=== PATIENT | female | born 1945 | race Caucasian/White ===

== ENCOUNTER 2019-03-19 13:35 | Outpatient (CLI) | payer MEDICARE, SELFPAY ==
[2019-03-19 14:26] LABS: Hematocrit 41.4 % (37.0-47.0); Hemoglobin 14.2 g/dL (12.0-15.0); Mean Corpuscular HGB Conc 34.3 g/dl (32-36); Mean Corpuscular Hemoglobin 31.3 pg (26-34); Mean Corpuscular Volume 91.4 fl (80-100); Mean Platelet Volume 9.7 fl (7.4-10.4); Platelet Count Result 288 k/mm3 (150-375); Red Blood Count 4.53 M/mm3 (4.2-5.4); Red Cell Distribution Width 12.8 % (11.5-14.5); White Blood Count 5.3 K/mm3 (4.5-10.0)
[2019-03-19 14:39] LABS: Alanine Aminotransferase 12 U/L (4-35); Albumin Level 4.2 g/dL (3.5-5.1); Alkaline Phosphatase 62 U/L (38-126); Aspartate Amino Transferase 19 U/L (14-36); Bilirubin,Total 0.7 mg/dL (0.2-1.3); Blood Urea Nitrogen 11 mg/dL (7-17); Calcium 9.4 mg/dL (8.4-10.2); Carbon Dioxide 27 mmol/L (22-30); Chloride 93 mmol/L (98-107); Cholesterol 246 mg/dL (0-200); Estimated Glomerular Filt Rate > 60; Glucose 96 mg/dL (65-105); HDL Direct 37 mg/dL; Magnesium 1.7 mg/dL (1.6-2.3); Potassium 3.2 mmol/L (3.4-5.0); Sodium 129 mmol/L (137-145); Triglycerides 147 mg/dL (<150)
[2019-03-19 14:49] LABS: LDL Cholesterol Direct 176 mg/dL
[2019-03-19 15:52] LABS: Folic Acid > 20.0 ng/mL (2.76->20)
== END 2019-03-19 13:36 | disposition home or self-care (01) ==
PROVIDERS: PCP Internal Medicine; Visit Provider Internal Medicine
DX: R53.83 Other fatigue (principal); I10 Essential (primary) hypertension; E78.00 Pure hypercholesterolemia, unspecified
CPT/HCPCS: 36415; 80053; 80061; 82607; 82746; 83735; 84443; 85027

== ENCOUNTER 2019-04-16 15:05 | Outpatient (CLI) | payer MEDICARE, SELFPAY ==
[2019-04-16 15:49] LABS: Albumin Level 4.3 g/dL (3.5-5.1); Blood Urea Nitrogen 11 mg/dL (7-17); Calcium 9.3 mg/dL (8.4-10.2); Carbon Dioxide 26 mmol/L (22-30); Chloride 93 mmol/L (98-107); Estimated Glomerular Filt Rate > 60; Glucose 100 mg/dL (65-105); Phosphorus 3.9 mg/dL (2.5-4.5); Potassium 3.3 mmol/L (3.4-5.0); Sodium 134 mmol/L (137-145)
== END 2019-04-16 15:06 | disposition home or self-care (01) ==
LOC: ANHLAB 15:09
PROVIDERS: PCP Internal Medicine; Visit Provider Internal Medicine Nephrology
DX: E87.1 Hypo-osmolality and hyponatremia (principal)
CPT/HCPCS: 36415; 80069

== ENCOUNTER 2020-04-17 15:11 | Outpatient (CLI) | payer MEDICARE, SELFPAY ==
[2020-04-17 15:43] LABS: Basophils Percent Auto 0.7 % (0.2-1.2); Eosinophils Absolute Auto 0.1 K/mm3 (0-0.3); Eosinophils Percent Auto 1.2 % (0-4.4); Hematocrit 39.6 % (37.0-47.0); Hemoglobin 13.9 g/dL (12.0-15.0); Immature Granulocyte Absolute 0.04 K/mm3 (0.00-0.031); Immature Granulocyte Percent A 0.7 % (0-0.5); Lymphocytes Absolute Auto 1.34 K/mm3 (0.9-3.2); Lymphocytes Percent Auto 22.3 % (18.3-44.2); Mean Corpuscular HGB Conc 35.1 g/dl (32-36); Mean Platelet Volume 9.2 fl (7.4-10.4); Monocytes Absolute Auto 0.8 K/mm3 (0.1-0.6); Monocytes Percent Auto 12.6 % (2.6-8.5); Neutrophils Absolute Auto 3.8 K/mm3 (1.3-6.7); Neutrophils Percent Auto 62.5 % (45.5-73.1); Platelet Count Result 290 k/mm3 (150-375); Red Blood Count 4.35 M/mm3 (4.2-5.4); Red Cell Distribution Width 12.9 % (11.5-14.5)
[2020-04-17 15:54] LABS: Cholesterol 226 mg/dL (0-200); HDL Direct 40 mg/dL; Triglycerides 125 mg/dL (<150)
[2020-04-17 16:05] LABS: LDL Cholesterol Direct 151 mg/dL
[2020-04-17 17:17] LABS: Folic Acid > 20.0 ng/mL (2.76->20)
[2020-04-17 17:20] LABS: Albumin Level 4.1 g/dL (3.5-5.1); Anion Gap 8 mmol/L (8-16); Blood Urea Nitrogen 10 mg/dL (7-17); Calcium 9.3 mg/dL (8.4-10.2); Carbon Dioxide 27 mmol/L (22-30); Chloride 97 mmol/L (98-107); Estimated Glomerular Filt Rate > 60; Glucose 97 mg/dL (65-105); Phosphorus 3.5 mg/dL (2.5-4.5); Potassium 3.3 mmol/L (3.4-5.0); Sodium 132 mmol/L (137-145)
== END 2020-04-17 15:12 | disposition home or self-care (01) ==
LOC: ANHLAB 15:13
PROVIDERS: PCP Internal Medicine; Visit Provider Internal Medicine Nephrology
DX: E78.5 Hyperlipidemia, unspecified (principal); R53.83 Other fatigue; E87.1 Hypo-osmolality and hyponatremia
CPT/HCPCS: 36415; 80061; 80069; 82607; 82746; 84443; 85025

== ENCOUNTER 2020-05-12 16:28 | Outpatient (CLI) | payer MEDICARE, SELFPAY ==
[2020-05-12 17:02] LABS: Add Urine Microscopic? YES; Appearance Urine Cloudy (Clear); Bacteria Urine Trace /hpf; Bilirubin Urine Negative (Negative); Blood Urine Negative (Negative); Color Urine Yellow (Yellow); Glucose Urine UA Negative (Negative); Ketones Urine Negative (Negative); Leukocyte Esterase Ur Negative LEU/UL (NEGATIVE); Nitrate Urine Negative (Negative); Protein Urine 1+ mg/dL (Negative); RBC Urine 0-2 /hpf (0-2); Specific Grav Ur 1.015 (1.001-1.035); Squamous Epithelial Cell Urine Few /hpf (Few); Urobilinogen Urine Negative mg/dL (<2.0); WBC Urine 0-3 /hpf (0-3)
== END 2020-05-12 16:29 | disposition home or self-care (01) ==
PROVIDERS: PCP Internal Medicine; Visit Provider Physician Assistant
DX: R30.0 Dysuria (principal)
CPT/HCPCS: 81001; 87086; 87088

== ENCOUNTER → 2020-05-14 06:57 | Outpatient (CLI) | payer MEDICARE, SELFPAY ==
[2020-05-15 17:45] LABS: SARS-CoV-2 RNA PCR Negative
== END ==
PROVIDERS: PCP Internal Medicine; Visit Provider Physician Assistant
DX: U07.1 COVID-19 (principal)
CPT/HCPCS: C9803; U0003; U0005

== ENCOUNTER 2020-08-27 14:39 | Outpatient (CLI) | payer MEDICARE, SELFPAY ==
[2020-08-27 15:11] LABS: Albumin Level 4.3 g/dL (3.5-5.1); Anion Gap 7 mmol/L (8-16); Blood Urea Nitrogen 14 mg/dL (7-17); Calcium 9.1 mg/dL (8.4-10.2); Carbon Dioxide 27 mmol/L (22-30); Chloride 98 mmol/L (98-107); Estimated Glomerular Filt Rate > 60; Glucose 119 mg/dL (65-105); Phosphorus 3.8 mg/dL (2.5-4.5); Potassium 3.7 mmol/L (3.4-5.0); Sodium 132 mmol/L (137-145)
== END 2020-08-27 14:40 | disposition home or self-care (01) ==
LOC: ANHLAB 14:41
PROVIDERS: PCP Internal Medicine; Visit Provider Internal Medicine Nephrology
DX: E87.1 Hypo-osmolality and hyponatremia (principal); I10 Essential (primary) hypertension
CPT/HCPCS: 36415; 80069

== ENCOUNTER 2021-04-12 14:40 | Outpatient (CLI) | payer MEDICARE, SELFPAY ==
[2021-04-12 15:17] LABS: Albumin Level 4.5 g/dL (3.5-5.1); Anion Gap 10 mmol/L (8-16); Blood Urea Nitrogen 10 mg/dL (7-17); Carbon Dioxide 24 mmol/L (22-30); Chloride 97 mmol/L (98-107); Estimated Glomerular Filt Rate > 60; Glucose 119 mg/dL (65-110); Phosphorus 4.4 mg/dL (2.5-4.5); Potassium 3.5 mmol/L (3.4-5.0); Sodium 131 mmol/L (137-145)
== END 2021-04-12 14:41 | disposition home or self-care (01) ==
PROVIDERS: PCP Internal Medicine; Visit Provider Internal Medicine Nephrology
DX: E87.1 Hypo-osmolality and hyponatremia (principal)
CPT/HCPCS: 36415; 80069

== ENCOUNTER 2021-04-29 12:42 | Outpatient (CLI) | payer MEDICARE, SELFPAY ==
[2021-04-29 13:21] LABS: Basophils Absolute Auto 0.1 K/mm3 (0.0-0.1); Basophils Percent Auto 0.9 % (0.2-1.2); Eosinophils Absolute Auto 0.1 K/mm3 (0-0.3); Eosinophils Percent Auto 1.2 % (0-4.4); Hematocrit 40.1 % (37.0-47.0); Hemoglobin 13.8 g/dL (12.0-15.0); Immature Granulocyte Absolute 0.04 K/mm3 (0.00-0.031); Immature Granulocyte Percent A 0.6 % (0-0.5); Lymphocytes Absolute Auto 1.79 K/mm3 (0.9-3.2); Lymphocytes Percent Auto 27.4 % (18.3-44.2); Mean Corpuscular HGB Conc 34.4 g/dl (32-36); Mean Corpuscular Hemoglobin 32.5 pg (26-34); Mean Corpuscular Volume 94.4 fl (80-100); Mean Platelet Volume 9.4 fl (7.4-10.4); Monocytes Absolute Auto 0.8 K/mm3 (0.1-0.6); Monocytes Percent Auto 12.8 % (2.6-8.5); Neutrophils Absolute Auto 3.7 K/mm3 (1.3-6.7); Neutrophils Percent Auto 57.1 % (45.5-73.1); Platelet Count Result 299 k/mm3 (150-375); Red Blood Count 4.25 M/mm3 (4.2-5.4); Red Cell Distribution Width 12.9 % (11.5-14.5); White Blood Count 6.5 K/mm3 (4.5-10.0)
[2021-04-29 13:27] LABS: Alanine Aminotransferase 14 U/L (4-35); Albumin Level 4.2 g/dL (3.5-5.1); Alkaline Phosphatase 60 U/L (38-126); Anion Gap 5 mmol/L (8-16); Aspartate Amino Transferase 27 U/L (14-36); Bilirubin,Total 0.8 mg/dL (0.2-1.3); Blood Urea Nitrogen 10 mg/dL (7-17); Calcium 9.4 mg/dL (8.4-10.2); Carbon Dioxide 30 mmol/L (22-30); Chloride 96 mmol/L (98-107); Cholesterol 249 mg/dL (0-200); Estimated Glomerular Filt Rate > 60; Glucose 101 mg/dL (65-110); HDL Direct 40 mg/dL; Potassium 3.4 mmol/L (3.4-5.0); Sodium 131 mmol/L (137-145); Triglycerides 165 mg/dL (<150)
[2021-04-29 13:38] LABS: LDL Cholesterol Direct 165 mg/dL
[2021-04-29 14:31] LABS: Folic Acid 16.2 ng/mL (2.76->20)
== END 2021-04-29 12:43 | disposition home or self-care (01) ==
PROVIDERS: PCP Internal Medicine; Referring Provider Internal Medicine Nephrology; Visit Provider Internal Medicine
DX: E78.00 Pure hypercholesterolemia, unspecified (principal); I10 Essential (primary) hypertension; R53.83 Other fatigue
CPT/HCPCS: 36415; 80053; 80061; 82607; 82746; 84443; 85025

== ENCOUNTER 2021-12-13 17:22 | Outpatient (CLI) | payer MEDICARE, SELFPAY ==
[2021-12-13 17:59] LABS: Albumin Level 4.3 g/dL (3.5-5.1); Anion Gap 13 mmol/L (8-16); Blood Urea Nitrogen 12 mg/dL (7-17); Calcium 8.9 mg/dL (8.4-10.2); Carbon Dioxide 28 mmol/L (22-30); Chloride 94 mmol/L (98-107); Estimated Glomerular Filt Rate > 60; Glucose 104 mg/dL (65-110); Phosphorus 3.5 mg/dL (2.5-4.5); Sodium 135 mmol/L (137-145)
[2021-12-13 18:00] LABS: Creatinine Urine 106.7 mg/dL; Total Protein Urine Random 7 mg/dL; Ur Ttl Prot Creatinine Ratio 0.07 mg/mg (0-0.20)
== END 2021-12-13 17:23 | disposition home or self-care (01) ==
PROVIDERS: PCP Internal Medicine; Referring Provider Internal Medicine; Visit Provider Internal Medicine Nephrology
DX: E87.1 Hypo-osmolality and hyponatremia (principal); I10 Essential (primary) hypertension
CPT/HCPCS: 36415; 80069; 82570; 84156

== ENCOUNTER 2022-02-11 01:50 | Inpatient (IN) | payer MEDICARE, SELFPAY ==
[2022-02-11] VITALS (42 sets, daily range): BP systolic 162–188; BP diastolic 77–93; PULSE 90–124; RESP 9–27; TEMP 36.6–36.9; O2SAT 92–100; BMI 28.3
--- NOTE | ~2022-02-11 | XR_ITS ---
EXAMINATION: XR chest 1V portable DATE: 02/11/2022 02:41 INDICATION: Chills. TECHNIQUE: A single frontal view of the chest was obtained. COMPARISON: Chest CT 02/11/2022 FINDINGS: The chest demonstrates clear lungs without pneumonia, pleural effusion, or pneumothorax. Th e heart size is normal. IMPRESSION: 1. No acute cardiopulmonary disease. Reviewed, dictated and finalized at location A. TENANCE MECHANIC
--- NOTE | ~2022-02-11 | CT_ITS ---
EXAMINATION:CT diagnostic chest wo con DATE: 02/11/2022 04:01 INDICATION: Chills. TECHNIQUE: Computed tomography (CT) of the chest was performed without intravenous contrast. Automate d exposure control and iterative reconstruction technique were employed. The dose-length product (DLP ) was 163.65 mGy-cm. COMPARISON: Chest single view 02/11/2022 FINDINGS: There is minimal atelectasis on the right. No pleural effusion. The heart size is normal. N o pericardial effusion. There is a small sliding hiatal hernia. There is gas in left anterior chest w all, consistent with recent surgery. There is fat stranding in left breast that may be hematoma and p ostoperative change. There is mild thoracic spondylosis. IMPRESSION: 1. Small sliding hiatal hernia. 2. Postoperative changes in left breast. Reviewed, dictated and finalized at location A. RATOR REPAIRER
[2022-02-11] MEDS: LORazepam INJ (*CRX) 2 MG/ML VIAL 1 MG IV PUSH ×2 (02:00→20:23)
--- NOTE | 2022-02-11 02:03 | ECG_ITS ---
Measurements Intervals [place] Rate: 100 P: 40 AK: 199 QRS: 0 QRSD: 90 T: 21 QT: 369 QTc: 477 Interpretive Statements SINUS TACHYCARDIA POSSIBLE INFERIOR MYOCARDIAL INFARCTION , PROBABLY OLD [30 ms Q WAVE IN II/aVF] ABNORMAL RHYTHM ECG NO PREVIOUS ECG AVAILABLE FOR COMPARISON Electronically Signed On 02-11-2022 19:57:09 PACKAGE SEALER MACHINE by Marty Salazar M.D.
[2022-02-11] MEDS: diphenhydrAMINE HCl INJ 50 MG/ML VIAL 25 MG IV PUSH ×2 (02:25→20:23)
[2022-02-11 02:33] LABS: Basophils Percent Auto 0.5 % (0.2-1.2); Eosinophils Absolute Auto 0.2 K/mm3 (0-0.3); Eosinophils Percent Auto 3.9 % (0-4.4); Hematocrit 41.6 % (37.0-47.0); Hemoglobin 14.6 g/dL (12.0-15.0); Immature Granulocyte Absolute 0.07 K/mm3 (0.00-0.031); Immature Granulocyte Percent A 1.2 % (0-0.5); Lymphocytes Absolute Auto 1.22 K/mm3 (0.9-3.2); Lymphocytes Percent Auto 20.7 % (18.3-44.2); Mean Corpuscular HGB Conc 35.1 g/dl (32-36); Mean Corpuscular Hemoglobin 31.7 pg (26-34); Mean Corpuscular Volume 90.4 fl (80-100); Mean Platelet Volume 9.7 fl (7.4-10.4); Monocytes Percent Auto 16.5 % (2.6-8.5); Neutrophils Absolute Auto 3.4 K/mm3 (1.3-6.7); Neutrophils Percent Auto 57.2 % (45.5-73.1); Platelet Count Result 337 k/mm3 (150-375); Red Cell Distribution Width 12.2 % (11.5-14.5); White Blood Count 5.9 K/mm3 (4.5-10.0)
--- NOTE | 2022-02-11 02:40 | ED.ALLEREA ---
HPI - Allergic Reaction General Chief complaint: Allergic Reaction Stated complaint: ALLERGIC REACTION Time Seen by Provider: 02/11/22 02:02 Source: patient and EMS Mode of arrival: EMS Limitations: no limitations History of Present Illness HPI narrative: Patient is 76 years old white female, had a recent diagnosis of breast cancer December 2021, status post lumpectomy of left breast on February 07, 2022. Patient had vancomycin during this procedure, within 8 hours the patient started having diffuse redness of the skin at the torso and chest and thigh and upper extremities bilaterally. Patient called her surgeon who started her on Medrol Dosepak and Benadryl, the symptoms are not improving over the last 4 days. Few hours ago patient developed shortness of breath, shaking and restlessness, her gave her his albuterol treatment and got better few minutes later got worse, callED 911, and came to the ED by ambulance. Patient denies any fever,, nausea, vomiting, chest pain, or itching. Currently patient main complaint is her concern about the future of her breast cancer. Patient had history of a lot of allergy to a lot of stuff, have a denitrator. Related Data Home Medications Medication Instructions Recorded Confirmed estradiol 0.1 mg/24 hr semiweekly 1 patch transdermal 2XW 03/25/19 01/04/22 transdermal patch (Brenda) fexofenadine 180 mg tablet 180 mg PO DAILY 03/25/19 01/04/22 (Karly Allergy) lisinopril 20 mg tablet 20 mg PO BID 03/25/19 01/04/22 metoprolol tartrate 50 mg tablet 25 mg PO Q12H 03/25/19 01/04/22 progesterone micronized 100 mg 100 mg PO QAM 03/25/19 01/04/22 capsule triamterene 37.5 0.5 tablet PO BID 03/25/19 01/04/22 mg-hydrochlorothiazide 25 mg tablet famotidine 10 mg tablet 10 mg PO DAILY 10/01/19 01/04/22 clobetasol 0.05 % scalp solution 1 applic topical DAILY 04/24/20 01/04/22 fluticasone propionate 50 1 spray intranasal DAILY 04/24/20 01/04/22 mcg/actuation nasal spray,suspension potassium chloride 10 mEq 20 meq PO DAILY 04/24/20 01/04/22 tablet,extended release(part/cryst) (Klor-Con M) desoximetasone 0.25 % topical cream 1 applic topical DAILY PRN 10/30/20 01/04/22 triamcinolone acetonide 55 mcg 1 spray intranasal DAILY 05/03/21 01/04/22 nasal spray aerosol (Nasacort) Allergies Allergy/AdvReac Type Severity Reaction Status Date / Time clonidine Allergy Severe throat Verified 02/11/22 02:40 swelling hydrocodone Allergy Severe swelling Verified 02/11/22 02:40 ibuprofen Allergy Severe skin Verified 02/11/22 02:40 peeling Penicillins Allergy Severe rash, resp Verified 02/11/22 02:40 distress Sulfa (Sulfonamide Allergy Severe Anaphylaxis Verified 02/11/22 02:40 Antibiotics) trimethoprim Allergy Severe ANAPHYLACTIC Verified 02/11/22 02:40 REACTION latex Allergy Intermediate RASH Verified 02/11/22 02:40 procaine Allergy Intermediate DROWSINESS Verified 02/11/22 02:40 amlodipine Allergy Mild Unknown Verified 02/11/22 02:40 atenolol Allergy Mild hair loss Verified 02/11/22 02:40 bacitracin Allergy Mild uknown Verified 02/11/22 02:40 benzyl alcohol Allergy Mild unkown Verified 02/11/22 02:40 celecoxib Allergy Mild Unknown Verified 02/11/22 02:40 clindamycin Allergy Mild Rash Verified 02/11/22 02:40 estradiol Allergy Mild didn't work Verified 02/11/22 02:40 methylchloroisothiazolinone Allergy Mild unknown Verified 02/11/22 02:40 neomycin Allergy Mild RASH Verified 02/11/22 02:40 polyethylene glycol 400 Allergy Mild unknown Verified 02/11/22 02:40 [From Systane (propylene glycol)] propylene glycol Allergy Mild unknown Verified 02/11/22 02:40 quinapril [From Accupril] Allergy Mild Diarrhea Verified 02/11/22 02:40 verapamil Allergy Mild ringing in Verified 02/11/22 02:40 ears meloxicam Allergy Unknown elevated Verified 02/11/22 02:40 BP, swelling NSAIDS (Non-Steroidal Allergy Swelling Verified 02/11/22 02:40 Anti-Inflamma Progestins
[2022-02-11 03:10] LABS: Influenza A QL RT-PCR Negative (Negative); Influenza B QL RT-PCR Negative (Negative); RSV RNA, RT-PCR Negative (Negative); SARS-CoV-2 RNA PCR Negative
[2022-02-11 03:14] LABS: Lactic Acid Reflex 4.8 mmol/L (0.7-2.0)
[2022-02-11 03:15] LABS: Alanine Aminotransferase 24 U/L (6-35); Albumin Level 4.7 g/dL (3.5-5.1); Alkaline Phosphatase 65 U/L (38-126); Anion Gap 16 mmol/L (8-16); Aspartate Amino Transferase 29 U/L (14-36); Bilirubin,Total 0.4 mg/dL (0.2-1.3); Blood Urea Nitrogen 15 mg/dL (7-17); CRP < 0.5 mg/dL (<1.0); Calcium 9.7 mg/dL (8.4-10.2); Carbon Dioxide 22 mmol/L (22-30); Chloride 92 mmol/L (98-107); Estimated CRCL calculation 52 ml/min; Estimated Glomerular Filt Rate > 60; Glucose 126 mg/dL (65-110); Potassium 2.6 mmol/L (3.4-5.0); Sodium 130 mmol/L (137-145)
[2022-02-11 04:01] LABS: Add Urine Microscopic? NO; Appearance Urine Clear (Clear); Bilirubin Urine Negative (Negative); Blood Urine Negative (Negative); Color Urine Light Yellow (Yellow); Glucose Urine UA Negative (Negative); Ketones Urine Negative (Negative); Leukocyte Esterase Ur Negative LEU/UL (Negative); Nitrate Urine Negative (Negative); Protein Urine Negative (Negative); Urobilinogen Urine 0.2 mg/dL (<2.0)
[2022-02-11] MEDS: AZTREONAM 1 GM in DEXTROSE 5% IN WATER 50 ML 100 ML IVPB (04:35)
[2022-02-11] MEDS: SODIUM CHLORIDE 0.9% IV 1,000 ML 999 ML IV CONT (04:59)
[2022-02-11] MEDS: POTASSIUM CHLORIDE 20 MEQ PACKET (FOR LIQUID) 40 MEQ PO (05:00)
[2022-02-11 05:10] LABS: Magnesium 0.9 mg/dL (1.6-2.3)
[2022-02-11 05:31] LABS: Reflex Lactic Acid Yes or No Add Lactic
[2022-02-11] MEDS: POTASSIUM CHLORIDE INJ 40 MEQ in SODIUM CHLORIDE 0.9% IV 500 ML 130 MEQ IVPB (05:38)
[2022-02-11 06:28] LABS: Lactic Acid Reflex 2.5 mmol/L (0.7-2.0)
[2022-02-11] MEDS: MAGNESIUM SULF 2 GM/WATER 50ML 2 GM/50 ML BAG IVPB (07:18)
--- NOTE | 2022-02-11 12:22 | ADMGEN ---
This patient, Mikayla Fitzgerald, was admitted to [facility] Surg Room 317-01 at 1220. Patient/family oriented to hospital policies and general routines including ID bracelet, bed and alarms, visiting hours, pain management, procedures, bathroom and other care routines, personal items, smoking policy, room service/diet, and visiting hours. Information on how to activate the Rapid Response Team has been discussed. Patient/Family are encouraged to report perceived risks to care and to ask questions if they do not understand what they are told or what they should do.
[2022-02-11 13:24] LABS: Lactic Acid Reflex 2.1 mmol/L (0.7-2.0)
[2022-02-11 13:27] LABS: Anion Gap 7 mmol/L (8-16); Blood Urea Nitrogen 13 mg/dL (7-17); Calcium 8.5 mg/dL (8.4-10.2); Carbon Dioxide 23 mmol/L (22-30); Chloride 102 mmol/L (98-107); Estimated CRCL calculation 69 ml/min; Estimated Glomerular Filt Rate > 60; Glucose 125 mg/dL (65-110); Magnesium 2.1 mg/dL (1.6-2.3); Potassium 4.3 mmol/L (3.4-5.0); Sodium 132 mmol/L (137-145)
[2022-02-11 17:02] LABS: Alanine Aminotransferase 19 U/L (6-35); Albumin Level 3.8 g/dL (3.5-5.1); Alkaline Phosphatase 48 U/L (38-126); Anion Gap 9 mmol/L (8-16); Aspartate Amino Transferase 23 U/L (14-36); Bilirubin,Total 0.2 mg/dL (0.2-1.3); Blood Urea Nitrogen 13 mg/dL (7-17); Calcium 8.3 mg/dL (8.4-10.2); Carbon Dioxide 23 mmol/L (22-30); Chloride 97 mmol/L (98-107); Estimated CRCL calculation 48 ml/min; Estimated Glomerular Filt Rate > 60; Glucose 127 mg/dL (65-110); Magnesium 1.9 mg/dL (1.6-2.3); Potassium 3.4 mmol/L (3.4-5.0); Sodium 129 mmol/L (137-145)
--- NOTE | 2022-02-11 20:00 | PM.IMHP ---
H&P: HPI History of Present Illness Date/Time: 02/11/22 20:00 Chief Complaint: Suspected allergic reaction. 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 She had a left breast lumpectomy on MondayFebruary 07 at [place] and she reportedly received vancomycin during the procedure. Within several hours of the procedure she developed a diffuse, red rash throughout the body which seemed to be worse when she got home. She spoke with her surgeon who started her on Benadryl and a Medrol Dosepak with perhaps mild improvement. Last evening she developed sudden restlessness associated with shortness of breath and feelings as though her throat was swelling. She presented to the ER via EMS where she was given epinephrine subQ, Solu-Medrol, and diphenhydramine. The erythema improved somewhat thereafter but has started to come back. She was admitted in this setting. Since that time she has not really had any change in symptoms. The rash is perhaps mildly paretic but not significantly so. She denies syncope, near syncope, shortness of breath, chest pain, nausea, and vomiting. She has not taken any new medications since the surgery. Her symptoms are not similar to her discoid lupus or prior episode of bullous erythema multiform. Review of Systems Review of Systems: Twelve systems were reviewed and are negative except for as per HPI. [facility] Past Medical History Medical History (Updated 02/12/22 @ 00:08 by Honey Flowers PA-C) Bullous erythema multiforme Biopsy-proven to per Dr. Walker. Attributed to ibuprofen. Cancer of left breast Discoid lupus Hypertension Shingles (~08/2019) Surgical History Surgical History (Updated 02/12/22 @ 00:03 by Honey Flowers PA-C) History of dilation and curettage History of lumpectomy of left breast (02/07/22) Family History Family History Mother Hypertension Cerebrovascular accident Uterine cancer Father Patient's father is Hypertension Heart disease Social History Social History (Updated 02/12/22 @ 00:04 by NEFTALI Pickard Social History: Surrogate medical decision maker: Juvenal Fitzgerald, spouse. Code status: Full code. Smoking status: Never smoker Second hand tobacco smoke exposure: No Alcohol intake: never Substance use: never Lack of Transportation: No Lack of Food: Never True Current Housing: I Have Housing Concerned About Future Housing: Decline to Answer Difficulty Paying Gas/Electric Bills: Decline to Answer Difficulty Paying for Meds: Decline to Answer Currently Unemployed: Decline to Answer Education: Decline to Answer Difficulty w/ Childcare or Family Care: Decline to Answer Spiritual care concerns: No Meds Home Medications and Allergies Home Medications Medication Instructions Recorded Confirmed Type fexofenadine 180 mg tablet 180 mg PO DAILY 03/25/19 02/11/22 History (Karly Allergy) lisinopril 20 mg tablet 20 mg PO BID 03/25/19 02/11/22 History metoprolol tartrate 50 mg tablet 25 mg PO Q12H 03/25/19 02/11/22 History triamterene 37.5 0.5 tablet PO BID 03/25/19 02/11/22 History mg-hydrochlorothiazide 25 mg tablet famotidine 10 mg tablet 20 mg PO DAILY 10/01/19 02/11/22 History fluticasone propionate 50 1 spray intranasal DAILY 04/24/20 02/11/22 History mcg/actuation nasal spray,suspension potassium chloride 10 mEq 20 meq PO DAILY 04/24/20 02/11/22 History tablet,extended release(part/cryst) (Klor-Con M) desoximetasone 0.25 % topical cream 1 applic topical DAILY PRN dryness 10/30/20 02/11/22 History triamcinolone acetonide 55 mcg 1 spray intranasal
[2022-02-11] MEDS: METOPROLOL TARTRATE 25 MG TABLET PO (23:02)
[2022-02-11] MEDS: lisinopriL 20 MG TABLET PO (23:04)
[2022-02-11] MEDS: diphenhydrAMINE HCl CAP 25 MG CAPSULE PO (23:04)
[2022-02-12] MEDS: predniSONE 20 MG TABLET 40 MG PO (01:01)
[2022-02-12] MEDS: diphenhydrAMINE HCl CAP 25 MG CAPSULE PO ×4 (01:01→17:00)
[2022-02-12 06:00] VITALS: BP 133/77; PULSE 80; RESP 19; TEMP 35.8; O2SAT 97
[2022-02-12] MEDS: POTASSIUM CHLORIDE 10 MEQ TABLET.ER 20 MEQ PO (08:03)
[2022-02-12 08:04] VITALS: PULSE 84
[2022-02-12] MEDS: FLUTICASONE PROPIONATE 0.05% NA SPR 16 GM BTL (*BKC) 2 SPRAY NASAL (08:04)
[2022-02-12] MEDS: DOCUSATE SODIUM 100 MG CAPSULE PO ×2 (08:04→17:00)
[2022-02-12] MEDS: FAMOTIDINE 20 MG TABLET PO (08:04)
[2022-02-12] MEDS: CHOLECALCIFEROL 1,000 UNITS TABLET 5000 UNITS PO (08:04)
[2022-02-12] MEDS: LORATADINE 10 MG TABLET PO (08:04)
[2022-02-12] MEDS: ASCORBIC ACID 500 MG TABLET PO (08:04)
[2022-02-12] MEDS: lisinopriL 20 MG TABLET PO ×2 (08:04→17:00)
[2022-02-12] MEDS: METOPROLOL TARTRATE 25 MG TABLET PO ×2 (08:04→20:45)
[2022-02-12] MEDS: NAPHAZOLINE/PHENIRAM OP SOLN 15 ML BTL 2 DROP EACH EYE (08:06)
[2022-02-12 08:58] LABS: Alanine Aminotransferase 20 U/L (6-35); Albumin Level 3.8 g/dL (3.5-5.1); Alkaline Phosphatase 48 U/L (38-126); Anion Gap 6 mmol/L (8-16); Aspartate Amino Transferase 27 U/L (14-36); Bilirubin,Total 0.4 mg/dL (0.2-1.3); Blood Urea Nitrogen 12 mg/dL (7-17); Calcium 8.2 mg/dL (8.4-10.2); Carbon Dioxide 26 mmol/L (22-30); Chloride 97 mmol/L (98-107); Estimated CRCL calculation 53 ml/min; Estimated Glomerular Filt Rate > 60; Glucose 137 mg/dL (65-110); Potassium 3.7 mmol/L (3.4-5.0); Sodium 129 mmol/L (137-145)
[2022-02-12 14:00] VITALS: BP 143/77; PULSE 80; RESP 16; TEMP 36.6; O2SAT 98
--- NOTE | 2022-02-12 14:43 | PM.IMPN ---
Progress Note: A&P Assessment and Plan (1) Rash and nonspecific skin eruption: Code(s): R21 - Rash and other nonspecific skin eruption Status: Acute Assessment and Plan: Suspect she has a delayed drug rash, may very well have been due to vancomycin but she also received anaesthesia at that time as well. Rash not consistent with discoid lupus, bullous erythema multiform, exfoliative dermatitis, or Gregory Juan's but she does have a single mouth sore. Continue steroids, diphenhydramine, and loratadine. Patient will need a prescription for epinephrine pen on discharge. Monitor overnight. If rash continues to dissipate, plan home with steroids in the morning. (2) Allergic reaction: Code(s): T78.40XA - Allergy, unspecified, initial encounter Status: Acute Assessment and Plan: Suspected drug reaction to above. (3) Hyponatremia: Code(s): E87.1 - Hypo-osmolality and hyponatremia Status: Acute Assessment and Plan: Appears euvolemic. Diuretics currently on hold. Will check urine studies and serial Na levels. (4) Elevated lactic acid level: Code(s): R79.89 - Other specified abnormal findings of blood chemistry Status: Acute Assessment and Plan: Lactic acid was 4.8 on arrival. She was given a dose of aztreonam and levofloxacin in the emergency department however there are no findings to suggest active infection. Blood cultures pending though sepsis seems unlikely. Lactic acidosis could be seen in the setting of anaphylaxis however it is not clear if that was the case on presentation. Repeat Lactic acid levels trending down. (5) Hypertension: Code(s): I10 - Essential (primary) hypertension Status: Acute Assessment and Plan: Patient's blood pressure was reviewed on 02/12 Blood pressure was elevatd on admission but better this morning Will continue current medications. (6) Anxiety: Code(s): F41.9 - Anxiety disorder, unspecified Status: Acute Assessment and Plan: Noted to have anxiety. She had hallucinations potentially from the Ativan. Will stop Ativan. Follow. (7) Hypokalemia: Code(s): E87.6 - Hypokalemia Status: Acute Assessment and Plan: Potassium was replaced and normal now. Will continue to monitor. (8) Hypomagnesemia: Code(s): E83.42 - Hypomagnesemia Status: Acute Assessment and Plan: Magnesium was replaced and normal now. Will continue to monitor. 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 She slept okay. Rash is pruritic. She took Ativan last night and felt she was having hallucinations. Has a history of low sodium felt related to her drinking excessive water intake. She feels the rash is shipping weigher is spots. No bullous rash. No longer feels that her throat is tightening. She feels anxious. Exam Narrative: AF 96.5 133/77 84 19 97% ra Gen - NARD HEENT - small, shallow ulcer right buccal mucosa Chest - CTA bilaterally, nml RR CV - RRR S1/S2 Abd - Soft, NT/ND, Positive BS Ext - No pedal edema Psych - anxious Skin - diffuse macular rash involving the back/trunk/buttock/legs with sparing of the face; no bullae. No nodules Objective Data Vital Signs Vital Signs: Vital Signs - 24 hr 02/11/22 21:05 02/11/22 23:02 02/11/22 20:00 Temperature 97.8 F Pulse Rate 101 H 100 Respiratory Rate 20 Blood Pressure 168/92 H Pulse Oximetry 97 Oxygen Delivery Room Air 02/12/22 06:00 02/12/22 08:04 02/12/22 08:00 Temperature 96.5 F L Pulse Rate 80 84 Respiratory Rate 19 Blood Pressure 133/77 Pulse Oximetry 97 Oxygen Delivery Room Air Intake/Output
[2022-02-12 15:21] LABS: Sodium 128 mmol/L (137-145)
[2022-02-12] MEDS: methylPREDNISolone (MEDROL) DOSEPACK 4 MG TABLETS PO ×2 (17:00→20:45)
[2022-02-12 18:13] LABS: Sodium 133 mmol/L (137-145)
[2022-02-12 18:30] LABS: Sodium Urine Random 13 meq/L
[2022-02-12 20:45] VITALS: PULSE 81
[2022-02-12 22:00] VITALS: BP 145/70; PULSE 82; RESP 18; TEMP 36.7; O2SAT 97
--- NOTE | 2022-02-13 00:27 | PC.NURSE ---
Patient removed telemetry sticker and described excess itchiness. Upon further investigation, patient realized that one of the ingredients in the telemetry stickers is propylene glycol. Patient states she has an allergy to this ingredient. We removed the stickers and cleaned with alcohol wipes. No change in skin description or vital signs.
[2022-02-13 00:47] LABS: Sodium 134 mmol/L (137-145)
[2022-02-13] MEDS: diphenhydrAMINE HCl CAP 25 MG CAPSULE PO ×4 (00:55→18:03)
[2022-02-13] MEDS: methylPREDNISolone (MEDROL) DOSEPACK 4 MG TABLETS PO ×4 (05:50→20:44)
[2022-02-13 06:00] VITALS: BP 148/72; PULSE 77; RESP 18; TEMP 36.4; O2SAT 98
[2022-02-13 07:14] LABS: Alanine Aminotransferase 18 U/L (6-35); Albumin Level 3.4 g/dL (3.5-5.1); Alkaline Phosphatase 43 U/L (38-126); Anion Gap 6 mmol/L (8-16); Aspartate Amino Transferase 20 U/L (14-36); Bilirubin,Total 0.3 mg/dL (0.2-1.3); Blood Urea Nitrogen 17 mg/dL (7-17); Calcium 8.1 mg/dL (8.4-10.2); Carbon Dioxide 26 mmol/L (22-30); Chloride 98 mmol/L (98-107); Estimated CRCL calculation 60 ml/min; Estimated Glomerular Filt Rate > 60; Glucose 102 mg/dL (65-110); Potassium 3.6 mmol/L (3.4-5.0); Sodium 130 mmol/L (137-145)
[2022-02-13] MEDS: ASCORBIC ACID 500 MG TABLET PO (09:14)
[2022-02-13] MEDS: POTASSIUM CHLORIDE 10 MEQ TABLET.ER 20 MEQ PO (09:14)
[2022-02-13] MEDS: FAMOTIDINE 20 MG TABLET PO (09:14)
[2022-02-13] MEDS: lisinopriL 20 MG TABLET PO ×2 (09:14→18:03)
[2022-02-13] MEDS: CHOLECALCIFEROL 1,000 UNITS TABLET 5000 UNITS PO (09:14)
[2022-02-13] MEDS: LORATADINE 10 MG TABLET PO (09:15)
[2022-02-13] MEDS: METOPROLOL TARTRATE 25 MG TABLET PO ×2 (09:15→20:44)
[2022-02-13] MEDS: FLUTICASONE PROPIONATE 0.05% NA SPR 16 GM BTL (*BKC) 2 SPRAY NASAL (09:16)
[2022-02-13] MEDS: DOCUSATE SODIUM 100 MG CAPSULE PO ×2 (09:16→18:03)
[2022-02-13] MEDS: NAPHAZOLINE/PHENIRAM OP SOLN 15 ML BTL 2 DROP EACH EYE (09:16)
--- NOTE | 2022-02-13 12:24 | PM.TDS ---
Transfer Discharge Sum: Prov Provider Date of admission: 02/11/22 09:21 Primary care physician: Chandan Richardson DO Admitting clinician: Tommy Stevenson MD Transfer Discharge Sum: Med Medications Active and Home Medications: Home Medications fexofenadine 180 mg tablet (Karly Allergy) 180 mg PO DAILY 03/25/19 [History Confirmed 02/11/22] lisinopril 20 mg tablet 20 mg PO BID 03/25/19 [History Confirmed 02/11/22] metoprolol tartrate 50 mg tablet 25 mg PO Q12H 03/25/19 [History Confirmed 02/11/22] triamterene 37.5 mg-hydrochlorothiazide 25 mg tablet 0.5 tablet PO BID 03/25/19 [History Confirmed 02/11/22] famotidine 10 mg tablet 20 mg PO DAILY 10/01/19 [History Confirmed 02/11/22] fluticasone propionate 50 mcg/actuation nasal spray,suspension 1 spray intranasal DAILY 04/24/20 [History Confirmed 02/11/22] potassium chloride 10 mEq tablet,extended release(part/cryst) (Klor-Con M) 20 meq PO DAILY 04/24/20 [History Confirmed 02/11/22] desoximetasone 0.25 % topical cream 1 applic topical DAILY PRN dryness 10/30/20 [History Confirmed 02/11/22] triamcinolone acetonide 55 mcg nasal spray aerosol (Nasacort) 1 spray intranasal DAILY 05/03/21 [History Confirmed 02/11/22] acetaminophen 325 mg capsule (Tylenol) 325 mg PO Q6H PRN pain 02/11/22 [History Confirmed 02/11/22] acetaminophen 325 mg tablet (Tylenol) See Rx Instructions .Route .COMPLEX 02/11/22 [History Confirmed 02/11/22] ascorbate calcium (vitamin C) 500 mg capsule 500 mg PO DAILY 02/11/22 [History Confirmed 02/11/22] cholecalciferol (vitamin D3) 125 mcg (5,000 unit) capsule 125 mcg PO DAILY 02/11/22 [History Confirmed 02/11/22] diphenhydramine HCl 25 mg capsule (Benadryl) 25 mg PO HS 02/11/22 [History Confirmed 02/11/22] diphenhydramine HCl 25 mg capsule (Benadryl) 25 mg PO Q6H 02/11/22 [History Confirmed 02/11/22] docusate sodium 100 mg capsule (Colace) 100 mg PO BID 02/11/22 [History Confirmed 02/11/22] guaifenesin 600 mg tablet, extended release 12 hr (Mucinex) 600 mg PO PRN PRN Congestion 02/11/22 [History Confirmed 02/11/22] naphazoline 0.025 %-pheniramine 0.3 % eye drops (Naphcon-A) 2 drp EACH EYE DAILY 02/11/22 [History Confirmed 02/11/22] Active Medications Ascorbic Acid (Ascorbic Acid 500 Mg Tablet) 500 mg PO QAM [facility] Last Admin: 02/13/22 09:14 Dose: 500 mg Diphenhydramine HCl (Diphenhydramine Hcl Cap 25 Mg Capsule) 25 mg PO HS [facility] Last Admin: 02/11/22 23:04 Dose: 25 mg Diphenhydramine HCl (Diphenhydramine Hcl Cap 25 Mg Capsule) 25 mg PO Q6H [facility] Last Admin: 02/13/22 05:50 Dose: 25 mg Docusate Sodium (Docusate Sodium 100 Mg Capsule) 100 mg PO BID [facility] Last Admin: 02/13/22 09:16 Dose: 100 mg Famotidine (Famotidine 20 Mg Tablet) 20 mg PO DAILY [facility] Last Admin: 02/13/22 09:14 Dose: 20 mg Fluticasone Propionate (Fluticasone Propionate 0.05% Na Spr 16 Gm Btl (*Bkc)) 2 spray NASAL QAM [facility] Last Admin: 02/13/22 09:16 Dose: 2 spray Lisinopril (Lisinopril 20 Mg Tablet) 20 mg PO BID [facility] Last Admin: 02/13/22 09:14 Dose: 20 mg Loratadine (Loratadine 10 Mg Tablet) 10 mg PO QAM [facility] Last Admin: 02/13/22 09:15 Dose: 10 mg Methylprednisolone (Methylprednisolone (Medrol) Dosepack 4 Mg Tablets) 4 mg PO 0630,1200,1700 [facility]; Taper Stop: 02/17/22 07:29 Last Admin: 02/13/22 05:50 Dose: 4 mg Metoprolol Tartrate (Metoprolol Tartrate 25 Mg Tablet) 25 mg PO Q12HR [facility] Last Admin: 02/13/22 09:15 Dose: 25 mg Naphazoline HCl/Pheniramine Maleate (Naphazoline/Pheniram Op Soln 15 Ml Btl) 2 drop EACH EYE DAILY [facility] Last Admin: 02/13/22 09:16 Dose: 2 drop Potassium Chloride (Potassium Chloride 10 Meq Tablet.Er) 20 meq PO DAILY [facility] Last Admin: 02/13/22 09:14 Dose: 20 meq Triamcinolone Acetonide (Triamcinolone Acet 0.1% Cream 15 Gm Tube) 1 applic TOPICAL DAILY PRN PRN Reason: dryness Vitamin D (Cholecalciferol 1,000 Units Tablet) 5,000 units PO DAILY [facility] Last Admin: 02/13/22 09:14 Dose: 5,000 units Transfer Discharge Sum: Hosp Hospital Course Hospi
[2022-02-13 14:00] VITALS: BP 149/70; PULSE 66; RESP 20; TEMP 36.3; O2SAT 99
[2022-02-13 20:44] VITALS: PULSE 80
[2022-02-13 21:29] VITALS: BP 141/70; PULSE 79; RESP 20; TEMP 36.6; O2SAT 95
[2022-02-14] MEDS: diphenhydrAMINE HCl CAP 25 MG CAPSULE PO ×2 (00:49→05:46)
[2022-02-14] MEDS: methylPREDNISolone (MEDROL) DOSEPACK 4 MG TABLETS PO (05:46)
[2022-02-14 05:55] VITALS: BP 137/57; PULSE 71; RESP 12; TEMP 36.5; O2SAT 97
[2022-02-14 07:39] LABS: Alanine Aminotransferase 18 U/L (6-35); Albumin Level 3.4 g/dL (3.5-5.1); Alkaline Phosphatase 45 U/L (38-126); Anion Gap 4 mmol/L (8-16); Aspartate Amino Transferase 23 U/L (14-36); Bilirubin,Total 0.5 mg/dL (0.2-1.3); Blood Urea Nitrogen 18 mg/dL (7-17); Carbon Dioxide 26 mmol/L (22-30); Chloride 100 mmol/L (98-107); Estimated CRCL calculation 60 ml/min; Estimated Glomerular Filt Rate > 60; Glucose 100 mg/dL (65-110); Potassium 3.6 mmol/L (3.4-5.0); Sodium 130 mmol/L (137-145)
[2022-02-14] MEDS: FAMOTIDINE 20 MG TABLET PO (09:18)
[2022-02-14] MEDS: POTASSIUM CHLORIDE 10 MEQ TABLET.ER 20 MEQ PO (09:18)
[2022-02-14] MEDS: lisinopriL 20 MG TABLET PO (09:18)
[2022-02-14] MEDS: DOCUSATE SODIUM 100 MG CAPSULE PO (09:18)
[2022-02-14] MEDS: CHOLECALCIFEROL 1,000 UNITS TABLET 5000 UNITS PO (09:18)
[2022-02-14 09:19] VITALS: PULSE 71
[2022-02-14] MEDS: FLUTICASONE PROPIONATE 0.05% NA SPR 16 GM BTL (*BKC) 2 SPRAY NASAL (09:19)
[2022-02-14] MEDS: NAPHAZOLINE/PHENIRAM OP SOLN 15 ML BTL 2 DROP EACH EYE (09:19)
[2022-02-14] MEDS: ASCORBIC ACID 500 MG TABLET PO (09:19)
[2022-02-14] MEDS: METOPROLOL TARTRATE 25 MG TABLET PO (09:19)
[2022-02-14] MEDS: LORATADINE 10 MG TABLET PO (09:19)
--- NOTE | 2022-02-14 09:29 | PM.IMPN ---
Progress Note: A&P Assessment and Plan (1) Rash and nonspecific skin eruption: Code(s): R21 - Rash and other nonspecific skin eruption Status: Acute (2) Allergic reaction: Code(s): T78.40XA - Allergy, unspecified, initial encounter Status: Acute Assessment and Plan: 02/13/2022 interval history: today patient states feeling better, rash is also improving, denies any cough shortness of breath or or wheezing, patient has been is present in the room, they wish to be transferred to [facility] waiting for bed available, continue to monitor 1 more day, and further recommendation to follow (3) Hyponatremia: Code(s): E87.1 - Hypo-osmolality and hyponatremia Status: Acute (4) Elevated lactic acid level: Code(s): R79.89 - Other specified abnormal findings of blood chemistry Status: Acute (5) Hypertension: Code(s): I10 - Essential (primary) hypertension Status: Acute (6) Anxiety: Code(s): F41.9 - Anxiety disorder, unspecified Status: Acute (7) Hypokalemia: Code(s): E87.6 - Hypokalemia Status: Acute (8) Hypomagnesemia: Code(s): E83.42 - Hypomagnesemia Status: Acute Subjective Date/time seen: 02/13/22 09:29 Interval history: 76yo female with 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 She slept okay. Rash is pruritic. She took Ativan last night and felt she was having hallucinations. Has a history of low sodium felt related to her drinking excessive water intake. She feels the rash is resource manager is spots. No bullous rash. No longer feels that her throat is tightening. She feels anxious. 02/13/2022 interval history: today patient states feeling better, rash is also improving, denies any cough shortness of breath or or wheezing, patient has been is present in the room, they wish to be transferred to [facility] waiting for bed available, continue to monitor 1 more day, and further recommendation to follow Exam Narrative: Patient is comfortable, NAD HEENT: eyes are clear and none icteric LUNGS:CTA HEART: RR S1S2 ABD: BS+, Soft and nontender Lower extremities: no edema SKIN: nonjaundiced, generalized erythematous macules, no induration, no pustule or vesicle Neuro: grossly intact. Objective Data Vital Signs Vital Signs: Vital Signs - 24 hr 02/13/22 14:00 02/13/22 20:44 02/13/22 21:29 Temperature 97.3 F L 98 F Pulse Rate 66 80 79 Respiratory Rate 20 20 Blood Pressure 149/70 H 141/70 H Pulse Oximetry 99 95 02/14/22 05:55 02/14/22 09:19 Temperature 97.7 F Pulse Rate 71 71 Respiratory Rate 12 Blood Pressure 137/57 L Pulse Oximetry 97 Intake/Output Intake/Output: Intake & Output 02/11/22 02/12/22 02/13/22 02/14/22 23:59 23:59 23:59 23:59 Intake Total 2572 1680 880 150 Output Total 0 100 2150 200 Balance 2572 1580 -1270 -50 Meds/Results Medications: Active Medications Generic Name Dose Route Start Last Admin Trade Name Freq PRN Reason Stop Dose Admin Ascorbic Acid 500 mg 02/12/22 09:00 02/14/22 09:19 Ascorbic Acid 500 Mg Tablet PO 500 mg QAM [facility]ANDA Administration Diphenhydramine HCl 25 mg 02/11/22 21:45 02/11/22 23:04 Diphenhydramine Hcl Cap 25 Mg Capsule PO 25 mg HS [facility]DA Administration Diphenhydramine HCl 25 mg 02/12/22 00:00 02/14/22 05:46 Diphenhydramine Hcl Cap 25 Mg Capsule PO 25 mg Q6H [facility] Administration Docusate Sodium 100 mg 02/12/22 09:00 02/14/22 09:18 Docusate Sodium 100 Mg Capsule PO 100 mg BID [facility] Administration Famotidine 20 mg 02/12/22 09:00 02/14/22 09:18 Famotidine 20 Mg Tablet PO 20 mg DAILY [facility] Administration Fluticasone Propionate 2 spray 02/12/22 09:00 02/14/22 09:19 Fluticasone Propiona
--- NOTE | 2022-02-14 09:29 | PM.DS ---
DS: Admitting Diagnosis Discharge Date 02/14/2022 Admitting Diagnosis Suspected allergic reaction. DS: Discharge Diagnosis Discharge Diagnosis (1) Rash and nonspecific skin eruption: Code(s): R21 - Rash and other nonspecific skin eruption Status: Acute (2) Allergic reaction: Code(s): T78.40XA - Allergy, unspecified, initial encounter Status: Acute Assessment and Plan: 02/13/2022 interval history: today patient states feeling better, rash is also improving, denies any cough shortness of breath or or wheezing, patient has been is present in the room, they wish to be transferred to [facility] waiting for bed available, continue to monitor 1 more day, and further recommendation to follow (3) Hyponatremia: Code(s): E87.1 - Hypo-osmolality and hyponatremia Status: Acute (4) Elevated lactic acid level: Code(s): R79.89 - Other specified abnormal findings of blood chemistry Status: Acute (5) Hypertension: Code(s): I10 - Essential (primary) hypertension Status: Acute (6) Anxiety: Code(s): F41.9 - Anxiety disorder, unspecified Status: Acute (7) Hypokalemia: Code(s): E87.6 - Hypokalemia Status: Acute (8) Hypomagnesemia: Code(s): E83.42 - Hypomagnesemia Status: Acute DS: Summary Hospital Course Reason for hospitalization: Suspected allergic reaction. 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 She had a left breast lumpectomy on MondayFebruary 07 at [facility] and she reportedly received vancomycin during the procedure. Within several hours of the procedure she developed a diffuse, red rash throughout the body which seemed to be worse when she got home. She spoke with her surgeon who started her on Benadryl and a Medrol Dosepak with perhaps mild improvement.? Last evening she developed sudden restlessness associated with shortness of breath and feelings as though her throat was swelling.? She presented to the ER via EMS where she was given epinephrine subQ, Solu-Medrol, and diphenhydramine. The erythema improved somewhat thereafter but has started to come back. She was admitted in this setting. Since that time she has not really had any change in symptoms.? The rash is perhaps mildly paretic but not significantly so.? She denies syncope, near syncope, shortness of breath, chest pain, nausea, and vomiting. She has not taken any new medications since the surgery. Her symptoms are not similar to her discoid lupus or prior episode of bullous erythema multiform. Hospital Course: ? today patient states feeling better, rash is also improving,? denies any cough shortness of breath or? or wheezing,? patient has been is present in the room,? they wish to be transferred to [facility] waiting for bed available, continue to monitor 1 more day, and further recommendation to follow. today patient states feeling comfortable the rash is not as red, denies any cough shortness of breath discussing with the patient and her have decided to be discharged and will follow up with surgeon and the [facility], patient to complete Medrol Dosepak, Pepcid and Benadryl, will also discharge the patient on EpiPen. Time Spent with Patient Time attestation: Total time spent providing and/or coordinating discharge services: Exam Narrative: Patient is comfortable, NAD HEENT: eyes are clear and none icteric LUNGS:CTA HEART: RR S1S2 ABD: BS+, Soft and nontender Lower extremities: no edema SKIN: nonjaundiced, generalized erythematous macules, no induration, no pustule or vesicle Neuro: grossly intact. DS: Data Data Completed and Pending Labs on day of disc
== END 2022-02-14 11:06 | disposition home or self-care (01) | DRG 607 ==
LOC: ANHED 05:32 → ANH3MEDSUR 11:37
PROVIDERS: Internal Medicine; Physician Assistant; Admitting Provider Family Medicine; Emergency Provider Emergency Medicine; PCP Internal Medicine; Referring Provider Obstetrics & Gynecology; Visit Provider Family Medicine
DX: L27.0 Generalized skin eruption due to drugs and medicaments taken internally (principal); E87.20 Acidosis, unspecified; E87.1 Hypo-osmolality and hyponatremia; R44.3 Hallucinations, unspecified; T36.8X5A Adverse effect of other systemic antibiotics, initial encounter; C50.912 Malignant neoplasm of unspecified site of left female breast; E87.6 Hypokalemia; E83.42 Hypomagnesemia; F41.9 Anxiety disorder, unspecified; I10 Essential (primary) hypertension; L93.0 Discoid lupus erythematosus; Z88.0 Allergy status to penicillin; Z20.822 Contact with and (suspected) exposure to COVID-19
CPT/HCPCS: 36415; 71045; 71250; 80048; 80053; 81003; 82570; 83605; 83735; 84295; 84300; 85025; 86140; 87040; 87637; 93005; 96365; 96366; 96367; 96368; 96375; 96376; 99285; A9270; G0378; J1200; J1956; J2060; J2930; J3475; J3480; J7030; J7040; J7512

== ENCOUNTER 2022-03-28 13:00 | Outpatient (CLI) | payer MEDICARE, SELFPAY ==
[2022-03-28 14:15] LABS: Anion Gap 8 mmol/L (8-16); Blood Urea Nitrogen 11 mg/dL (7-17); Calcium 9.4 mg/dL (8.4-10.2); Carbon Dioxide 30 mmol/L (22-30); Chloride 96 mmol/L (98-107); Estimated Glomerular Filt Rate > 60; Glucose 105 mg/dL (65-110); Potassium 3.1 mmol/L (3.4-5.0); Sodium 134 mmol/L (137-145)
== END 2022-03-28 13:01 | disposition home or self-care (01) ==
PROVIDERS: PCP Internal Medicine; Referring Provider Internal Medicine Nephrology; Visit Provider Internal Medicine
DX: E87.6 Hypokalemia (principal)
CPT/HCPCS: 36415; 80048

== ENCOUNTER 2022-03-30 15:27 | Outpatient (CLI) | payer MEDICARE, SELFPAY ==
[2022-03-30 16:41] LABS: Anion Gap 7 mmol/L (8-16); Blood Urea Nitrogen 12 mg/dL (7-17); Carbon Dioxide 28 mmol/L (22-30); Chloride 95 mmol/L (98-107); Estimated Glomerular Filt Rate > 60; Glucose 99 mg/dL (65-110); Phosphorus 3.7 mg/dL (2.5-4.5); Potassium 3.3 mmol/L (3.4-5.0); Sodium 130 mmol/L (137-145)
== END 2022-03-30 15:28 | disposition home or self-care (01) ==
PROVIDERS: PCP Internal Medicine; Visit Provider Internal Medicine Nephrology
DX: E87.1 Hypo-osmolality and hyponatremia (principal)
CPT/HCPCS: 36415; 80069

== ENCOUNTER 2022-04-05 17:24 | Outpatient (CLI) | payer MEDICARE, SELFPAY ==
[2022-04-05 17:55] LABS: Albumin Level 4.6 g/dL (3.5-5.1); Anion Gap 12 mmol/L (8-16); Blood Urea Nitrogen 12 mg/dL (7-17); Calcium 9.3 mg/dL (8.4-10.2); Carbon Dioxide 25 mmol/L (22-30); Chloride 93 mmol/L (98-107); Estimated Glomerular Filt Rate > 60; Glucose 177 mg/dL (65-110); Phosphorus 3.9 mg/dL (2.5-4.5); Sodium 130 mmol/L (137-145)
== END 2022-04-05 17:25 | disposition home or self-care (01) ==
PROVIDERS: PCP Internal Medicine; Visit Provider Internal Medicine Nephrology
DX: E87.1 Hypo-osmolality and hyponatremia (principal)
CPT/HCPCS: 36415; 80069

== ENCOUNTER 2022-04-21 14:42 | Outpatient (CLI) | payer MEDICARE, SELFPAY ==
[2022-04-21 15:23] LABS: Albumin Level 4.6 g/dL (3.5-5.1); Anion Gap 10 mmol/L (8-16); Blood Urea Nitrogen 14 mg/dL (7-17); Calcium 9.6 mg/dL (8.4-10.2); Carbon Dioxide 27 mmol/L (22-30); Chloride 97 mmol/L (98-107); Estimated Glomerular Filt Rate > 60; Glucose 116 mg/dL (65-110); Potassium 3.7 mmol/L (3.4-5.0); Sodium 134 mmol/L (137-145)
== END 2022-04-21 14:43 | disposition home or self-care (01) ==
PROVIDERS: PCP Internal Medicine; Referring Provider Internal Medicine; Visit Provider Internal Medicine Nephrology
DX: E87.6 Hypokalemia (principal)
CPT/HCPCS: 36415; 80069

== ENCOUNTER 2022-05-27 16:13 | Outpatient (CLI) | payer MEDICARE, SELFPAY ==
[2022-05-27 16:45] LABS: Albumin Level 4.5 g/dL (3.5-5.1); Anion Gap 7 mmol/L (8-16); Blood Urea Nitrogen 12 mg/dL (7-17); Calcium 9.5 mg/dL (8.4-10.2); Carbon Dioxide 32 mmol/L (22-30); Chloride 94 mmol/L (98-107); Estimated Glomerular Filt Rate > 60; Glucose 79 mg/dL (65-110); Phosphorus 4.6 mg/dL (2.5-4.5); Potassium 3.4 mmol/L (3.4-5.0); Sodium 133 mmol/L (137-145)
== END 2022-05-27 16:14 | disposition home or self-care (01) ==
PROVIDERS: PCP Internal Medicine; Visit Provider Internal Medicine Nephrology
DX: E87.6 Hypokalemia (principal)
CPT/HCPCS: 36415; 80069

== ENCOUNTER 2022-10-12 14:29 | Outpatient (CLI) | payer MEDICARE, SELFPAY ==
[2022-10-12 15:33] LABS: Basophils Absolute Auto 0.1 K/mm3 (0.0-0.1); Basophils Percent Auto 0.9 % (0.2-1.2); Eosinophils Absolute Auto 0.1 K/mm3 (0-0.3); Eosinophils Percent Auto 1.3 % (0-4.4); Hematocrit 41.7 % (37.0-47.0); Immature Granulocyte Absolute 0.02 K/mm3 (0.00-0.031); Immature Granulocyte Percent A 0.4 % (0-0.5); Lymphocytes Absolute Auto 1.22 K/mm3 (0.9-3.2); Lymphocytes Percent Auto 23.1 % (18.3-44.2); Mean Corpuscular HGB Conc 33.6 g/dl (32-36); Mean Corpuscular Hemoglobin 31.3 pg (26-34); Mean Corpuscular Volume 93.3 fl (80-100); Mean Platelet Volume 9.4 fl (7.4-10.4); Monocytes Absolute Auto 0.6 K/mm3 (0.1-0.6); Neutrophils Absolute Auto 3.3 K/mm3 (1.3-6.7); Neutrophils Percent Auto 62.3 % (45.5-73.1); Platelet Count Result 282 k/mm3 (150-375); Red Blood Count 4.47 M/mm3 (4.2-5.4); Red Cell Distribution Width 12.9 % (11.5-14.5); White Blood Count 5.3 K/mm3 (4.5-10.0)
[2022-10-12 15:43] LABS: Alanine Aminotransferase 20 U/L (6-35); Albumin Level 4.6 g/dL (3.5-5.1); Alkaline Phosphatase 71 U/L (38-126); Anion Gap 15 mmol/L (8-16); Aspartate Amino Transferase 25 U/L (14-36); Bilirubin,Total 0.9 mg/dL (0.2-1.3); Blood Urea Nitrogen 9 mg/dL (7-17); Calcium 9.6 mg/dL (8.4-10.2); Carbon Dioxide 27 mmol/L (22-30); Chloride 88 mmol/L (98-107); Cholesterol 261 mg/dL (0-200); Estimated Glomerular Filt Rate > 60; Glucose 94 mg/dL (65-110); HDL Direct 36 mg/dL; Potassium 3.5 mmol/L (3.4-5.0); Sodium 130 mmol/L (137-145); Triglycerides 258 mg/dL (<150)
[2022-10-12 15:45] LABS: Albumin Level 4.6 g/dL (3.5-5.1); Anion Gap 9 mmol/L (8-16); Blood Urea Nitrogen 9 mg/dL (7-17); Calcium 9.6 mg/dL (8.4-10.2); Carbon Dioxide 27 mmol/L (22-30); Chloride 92 mmol/L (98-107); Estimated Glomerular Filt Rate > 60; Glucose 93 mg/dL (65-110); Phosphorus 4.2 mg/dL (2.5-4.5); Potassium 3.8 mmol/L (3.4-5.0); Sodium 128 mmol/L (137-145)
[2022-10-12 15:54] LABS: LDL Cholesterol Direct 160 mg/dL
== END 2022-10-12 14:30 | disposition home or self-care (01) ==
PROVIDERS: PCP Internal Medicine; Visit Provider Internal Medicine Nephrology
DX: E87.1 Hypo-osmolality and hyponatremia (principal); R53.83 Other fatigue; E78.00 Pure hypercholesterolemia, unspecified
CPT/HCPCS: 36415; 80053; 80061; 80069; 84443; 85025

== ENCOUNTER 2023-04-21 15:17 | Outpatient (CLI) | payer MEDICARE, SELFPAY ==
[2023-04-21 16:06] LABS: Alanine Aminotransferase 14 U/L (6-35); Albumin Level 4.4 g/dL (3.5-5.1); Alkaline Phosphatase 72 U/L (38-126); Anion Gap 9 mmol/L (8-16); Aspartate Amino Transferase 24 U/L (14-36); Bilirubin,Total 0.9 mg/dL (0.2-1.3); Blood Urea Nitrogen 8 mg/dL (7-17); Calcium 9.8 mg/dL (8.4-10.2); Carbon Dioxide 26 mmol/L (22-30); Chloride 94 mmol/L (98-107); Cholesterol 271 mg/dL (0-200); Estimated Glomerular Filt Rate > 60; Glucose 102 mg/dL (65-110); HDL Direct 42 mg/dL; Potassium 3.7 mmol/L (3.4-5.0); Sodium 129 mmol/L (137-145); Triglycerides 157 mg/dL (<150)
[2023-04-21 16:07] LABS: Albumin Level 4.5 g/dL (3.5-5.1); Anion Gap 10 mmol/L (8-16); Blood Urea Nitrogen 8 mg/dL (7-17); Calcium 9.7 mg/dL (8.4-10.2); Carbon Dioxide 25 mmol/L (22-30); Chloride 94 mmol/L (98-107); Estimated Glomerular Filt Rate > 60; Glucose 102 mg/dL (65-110); Phosphorus 4.2 mg/dL (2.5-4.5); Potassium 3.7 mmol/L (3.4-5.0); Sodium 129 mmol/L (137-145)
[2023-04-21 16:10] LABS: Creatinine Urine 80.1 mg/dL; Total Protein Urine Random 12 mg/dL; Ur Ttl Prot Creatinine Ratio 0.15 mg/mg (0-0.20)
[2023-04-21 16:18] LABS: LDL Cholesterol Direct 186 mg/dL
== END 2023-04-21 15:18 | disposition home or self-care (01) ==
PROVIDERS: PCP Internal Medicine; Referring Provider Internal Medicine; Visit Provider Internal Medicine Nephrology
DX: E78.5 Hyperlipidemia, unspecified (principal); I10 Essential (primary) hypertension; E87.1 Hypo-osmolality and hyponatremia; E87.6 Hypokalemia
CPT/HCPCS: 36415; 80053; 80061; 80069; 82570; 84156

== ENCOUNTER 2023-12-07 10:44 | Outpatient (CLI) | payer MEDICARE, SELFPAY ==
[2023-12-07 11:43] LABS: Creatinine Urine 154.7 mg/dL; Total Protein Urine Random 11 mg/dL; Ur Ttl Prot Creatinine Ratio 0.07 mg/mg (0-0.20)
[2023-12-07 11:47] LABS: Alanine Aminotransferase 11 U/L (6-35); Albumin Level 4.4 g/dL (3.5-5.1); Alkaline Phosphatase 63 U/L (38-126); Anion Gap 9 mmol/L (4-12); Aspartate Amino Transferase 26 U/L (14-36); Bilirubin,Total 1.1 mg/dL (0.2-1.3); Blood Urea Nitrogen 12 mg/dL (7-17); Calcium 9.6 mg/dL (8.4-10.2); Carbon Dioxide 28 mmol/L (22-30); Chloride 94 mmol/L (98-107); Estimated Glomerular Filt Rate > 60; Glucose 101 mg/dL (65-110); Magnesium 1.8 mg/dL (1.6-2.3); Phosphorus 3.6 mg/dL (2.5-4.5); Potassium 3.2 mmol/L (3.4-5.0); Sodium 131 mmol/L (137-145)
== END 2023-12-07 10:45 | disposition home or self-care (01) ==
LOC: ANHLAB 10:48
PROVIDERS: PCP Internal Medicine; Visit Provider Internal Medicine Nephrology
DX: E87.6 Hypokalemia (principal); E87.1 Hypo-osmolality and hyponatremia; I10 Essential (primary) hypertension; E83.42 Hypomagnesemia
CPT/HCPCS: 36415; 80053; 82570; 83735; 84100; 84156

== ENCOUNTER 2023-12-18 10:19 | Outpatient (CLI) | payer MEDICARE, SELFPAY ==
[2023-12-18 11:18] LABS: Albumin Level 4.6 g/dL (3.5-5.1); Anion Gap 13 mmol/L (4-12); Blood Urea Nitrogen 13 mg/dL (7-17); Calcium 9.7 mg/dL (8.4-10.2); Carbon Dioxide 25 mmol/L (22-30); Chloride 96 mmol/L (98-107); Estimated Glomerular Filt Rate > 60; Glucose 100 mg/dL (65-110); Potassium 3.6 mmol/L (3.4-5.0); Sodium 134 mmol/L (137-145)
== END 2023-12-18 10:20 | disposition home or self-care (01) ==
PROVIDERS: PCP Internal Medicine; Visit Provider Internal Medicine Nephrology
DX: E87.1 Hypo-osmolality and hyponatremia (principal)
CPT/HCPCS: 36415; 80069

== ENCOUNTER 2024-01-12 14:27 | Outpatient (CLI) | payer MEDICARE, SELFPAY ==
[2024-01-12 15:09] LABS: Albumin Level 4.4 g/dL (3.5-5.1); Anion Gap 9 mmol/L (4-12); Blood Urea Nitrogen 11 mg/dL (7-17); Calcium 9.6 mg/dL (8.4-10.2); Carbon Dioxide 25 mmol/L (22-30); Chloride 94 mmol/L (98-107); Estimated Glomerular Filt Rate > 60; Glucose 99 mg/dL (65-110); Magnesium 1.6 mg/dL (1.6-2.3); Phosphorus 3.8 mg/dL (2.5-4.5); Potassium 3.8 mmol/L (3.4-5.0); Sodium 128 mmol/L (137-145)
== END 2024-01-12 14:28 | disposition home or self-care (01) ==
PROVIDERS: PCP Internal Medicine; Visit Provider Internal Medicine Nephrology
DX: E87.6 Hypokalemia (principal)
CPT/HCPCS: 36415; 80069; 83735

== ENCOUNTER 2024-06-06 15:04 | Outpatient (CLI) | payer MEDICARE, SELFPAY ==
--- OUTSIDE RECORDS SUMMARY | 2024-06-06 15:16 | XMS_ITS | Referral Summary ---
Author Organization [facility] Address [address] [place] [address] Care Team Providers Care Blower Mechanic Name Role Phone Carl Nicole MD Unavailable [phone] Saurav Olson MD Unavailable [phone] Julienne Collins MD Unavailable [phone] Valerio Molina MD Unavailable Katrin Davis MD Unavailable Mary Noriega PhD Unavailable [phone] Edwin Jones DO Primary Care Provider [phone] Encounters Date Type Department Care Team Description 04/16/2024 1:15 PM PROGRAM DEVELOPER Office Visit [facility] Radiation Oncology [facility] [facility] [place] [address] Kitty Huitron, JEFFERY Malignant neoplasm of lower-inner quadrant of left breast in female, estrogen receptor positive (HCC) [C50.312, Z17.0] (Primary Dx) from Last 3 Months Allergies Active Allergy Reactions Criticality Noted Date Comments Quinapril Diarrhea Low 2 Adhesive Rash Medium 2 Alcohol-Propylene Glycol Itching Low 3 3M Red Dot Electrodes have this have this. Amlodipine Shortness of breath High 3 Atenolol Other (See comments),Unknown Low 3 Hair loss Lorazepam Hallucinations Medium 3 Bacitracin Unknown 2 Celecoxib Anaphylaxis High 3 Chlorhexidine Rash Medium 3 Chemical burn Clindamycin Hives Medium 5 Clonidine Shortness of breath High 3 Estradiol Unknown 3 Hydrocodone Other (See comments),Rash Medium 6 Lip swelling Ibuprofen Unknown 9 Latex Blisters High 2 Meloxicam Other (See comments) Low 8 Swelling, elevated BP Methylchloroisothiazolinone Unknown 2 Methylisothiazolinone Unknown 2 Neomycin Rash Medium 3 Nsaids (Non-Steroidal Anti-Inflammatory Drug) Other (See comments) Low 2 Bullous Penicillins Shortness of breath,Hives,Rash High 3 Progestins Diarrhea Low 3 Propylene Glycol Unknown 2 Sulfamethoxazole-Trimethoprim Anaphylaxis High 2 Sulfa (Sulfonamide Antibiotics) Anaphyla xis,Unknow n High 3 Trimethoprim Unknown 2 Vancomycin Other (See comments) High 3 Red christopher syndrome Verapamil Other (See comments),Rash Medium 3 Ringing in ears Medications metoprolol tartrate (LOPRESSOR) 50 mg immediate release tabletIndicatio ns:hypertension Take 0.5 tablets (25 mg total) by mouth 2 (two) times a day 2 Active potassium chloride ER 10 mEq CR tabletIndicatio ns:hypokalemia, hypokalemia prevention Take 4 tablet/capsule (40 mEq total) by mouth 2 (two) times a day 2 Active triamterene-hyd roCHLOROthiazid e 37.5-25 mg per tabletIndicatio ns:htn Take 0.5 tablet/capsule by mouth 2 (two) times a day 2 Active calcium carbonate/vitam in D3 (CALCIUM 500 + D, D3, ORAL) Take 1 capsule by mouth daily after dinner 6 Active cholecalciferol (VITAMIN D-3) 2000 unit capsuleIndicati ons:Vitamin D Deficiency Take 1 capsule (2,000 Units total) by mouth utility teller before breakfast Active ascorbic acid (VITAMIN C) 500 mg tablet,chewable Indications:sup plement Take 1 tablet/chew tab (500 mg total) by mouth utility teller before breakfast Active diphenhydrAMINE (BENADRYL) 25 mg capsule Take 1 tablet/capsule (25 mg total) by mouth nightly as needed for itching Active desoximetasone (TOPICORT) 0.25 % cream APPLY TOPICALLY TO THE AFFECTED AREA TWICE DAILY 4 Active venlafaxine (EFFEXOR) 37.5 mg tablet Active anastrozole (ARIMIDEX) 1 mg tabletIndicatio ns:Hormone Receptor Positive Breast Cancer Take 1 tablet (1 mg total) by mouth daily 90 tablet 11 4 12/26/19 27 Active budesonide (RHINOCORT AQUA) 32 mcg/actuation nasal spray Administer 1 spray into each nostril daily Active acetaminophen (TYLENOL) 500 mg tablet Take 1 tablet (500 mg total) by mouth every 6 (six) hours as needed for pain Active fexofenadine (LENNY) 60 mg tablet Take 1 tablet (60 mg total) by mouth daily Active Active Problems Problem Noted Date Diagnosed Date Radiotherapy follow-up examination 04/12/2023 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, estrogen receptor positive 01/12/2022 Cancer Staging:Clinical stage from 12/30/2021:Stage IA(cT1c, cN0, cM0, G3, ER+, NH+, HER2-) - Signed by Jeimy Biggs MD on 03/17/2022 Pathologic stage from 02/07/2022:Stage IA(pT1c, pN0(sn), cM0, G1, ER+, NH+, HER2-) - Signed by Jeimy Biggs MD on 03/17/2022 Social History Tobacco Use Types Packs/Day Years Used Date Smoking Tobacco: Never Smokeless Tobacco: Never Tobacco Cessation:Counseling Given: Not Answered AUDIT-C Answer Date Recorded Q1: How often do you have a drink containing alcohol? Never 03/17/2022 Q2: How many drinks containi ng alcohol do you have on a typical day when you are drinking? Patient does not drink Q3: How often do you have si x or more drinks on one occasion? Never 03/17/2022 Comments No Sex and Gender Information Value Date Recorded Sex Assigned at Not on file Legal Sex Female 5:55 AM PROGRAM DEVELOPER Gender Identity Not on file Sexual Orientation Not on file Last Filed Vital Signs Vital Sign Reading Time Taken Comments Blood Pressure 120/66 01/10/2024 3:28 PM PROGRAM DEVELOPER Pulse 95 01/10/2024 3:28 PM PROGRAM DEVELOPER Temperature 37.2 C (99 F) 01/10/2024 3:28 PM PROGRAM DEVELOPER Respiratory Rate 18 01/10/2024 3:28 PM PROGRAM DEVELOPER Oxygen Saturation 96% 01/10/2024 3:28 PM PROGRAM DEVELOPER Inhaled Oxygen Concentration - - Weight 70.2 kg (154 lb 11.2 oz) 04/16/2024 1:08 PM PROGRAM DEVELOPER Height 162.6 cm (5' 4.02 ) 10/17/2023 1 1:12 AM CDT Body Mass Index 26.54 10/17/2023 11:12 AM CDT Plan of Treatment Not on file Medical Devices Implanted Type Area Information Systems Architect Device Identifier Shelf Expiration Date Model / Serial / Lot Bard Peripheral Vascular Ultraclip Bard 17ga 10cm 2 Trigger Permanent Ultrasound [id number] - [id number] Implanted:Qty: 1 on 12/30/2021 at [facility] Left: Breast Bard Peripheral Vascular [id number] / / Fundly Magseed 18ga 7cm Marker Breast Biopsy [id number] - [id number] Implanted:Qty: 1 on 01/28/2022 at [facility] Fundly [id number] 10/20/2025 [id number] / / [id number] Procedures Procedure Name Priority Date/Time Associated Diagnosis Comments DIAGNOSTIC MAMMOGRAM BILATERAL W RICHARD Schedule Routine, Read Routine (OP Routine) 10/17/2023 12:19 PM CDT Malignant neoplasm of lower-inner quadrant of left breast in female, estrogen receptor positive (HCC) Malignant neoplasm of upper-outer quadrant of left breast in female, estrogen receptor positive (HCC) Malignant neoplasm of left female breast, unspecified estrogen receptor status, unspecified site of breast (HCC) DEXA AXIAL SKELETON BONE DENSITY 1 OR MORE SITES Schedule Routine, Read Routine (OP Routine) 10/14/2022 8:53 AM CDT Malignant neoplasm of lower-inner quadrant of left breast in female, estrogen receptor positive (HCC) MCC (current) use of aromatase inhibitors from Last 3 Months or Most Recently Relevant to Health Maintenance Results * Diagnostic Mammogram Bilateral W Richard (10/17/2023 12:19 PM CDT) Anatomical Region Laterality Modality Breast Bilateral Mammography 10/17/2023 12:2 1 PM CDT Impressions 10/17/2023 12:26 PM CDT 1. Stable changes of LEFT breast conservation therapy. 2. No mammographic evidence of malignancy in EITHER breast OVERALL FINAL ASSESSMENT: BI-RADS Category 2: Benign. RECOMMENDATION: Annual diagnostic mammography is recommended. Dictated by: Alisson Bain M.D. The radiology attending physician has personally reviewed this study, and had reviewed and/or edited this written report and agrees with it. Electronically signed by: Yasmany Eller MD Narrative 10/17/2023 12:26 PM CDT EXAMINATION: BILATERAL DIGITAL DIAGNOSTIC MAMMOGRAM INCLUDING CAD AND BILATERAL DIGITAL BREAST TOMOSYNTHESIS HISTORY: 78-year-old woman with history of a LEFT breast conservation therapy in January 2022 for invasive ductal carcinoma. She presents for annual follow-up. COMPARISON: Prior mammograms, most recent 10/14/2022 TECHNIQUE: Full field digital mammographic views of BOTH breasts were performed, including computer aided detection (CAD) and BILATERAL digital breast tomosynthesis (DBT). BREAST PARENCHYMAL COMPOSITION: There are scattered areas of fibroglandular density. MAMMOGRAM FINDINGS: Stable changes of LEFT breast conservation therapy. There is no mass, calcification or architectural distortion in EITHER breast. Procedure Note Yasmany Eller MD - 10/17/2023 EXAMINATION: BILATERAL DIGITAL DIAGNOSTIC MAMMOGRAM INCLUDING CAD AND BILATERAL DIGITAL BREAST TOMOSYNTHESIS HISTORY: 78-year-old woman with history of a LEFT breast conservation therapy in January 2022 for invasive ductal carcinoma. She presents for annual follow-up. COMPARISON: Prior mammograms, most recent 10/14/2022 TECHNIQUE: Full field digital mammographic views of BOTH breasts were performed, including computer aided detection (CAD) and BILATERAL digital breast tomosynthesis (DBT). BREAST PARENCHYMAL COMPOSITION: There are scattered areas of fibroglandular density. MAMMOGRAM FINDINGS: Stable changes of LEFT breast conservation therapy. There is no mass, calcification or architectural distortion in EITHER breast. IMPRESSION: 1. Stable changes of LEFT breast conservation therapy. 2. No mammographic evidence of malignancy in EITHER breast OVERALL FINAL ASSESSMENT: BI-RADS Category 2: Benign. RECOMMENDATION: Annual diagnostic mammography is recommended. Dictated by: Alisson Bain M.D. The radiology attending physician has personally reviewed this study, and had reviewed and/or edited this written report and agrees with it. Electronically signed by: Yasmany Eller MD us Julienne Collins MD IMG MAMMO PROCEDURES Fi nal Result * Dexa Axial Skeleton Bone Density 1 or 2 Site (10/14/2022 8:53 AM CDT) Anatomical Region Laterality Modality Body N/A Radiographic Debby ging Narrative 10/14/2022 1:13 PM CDT Patient Name: Mikayla Fitzgerald Date of : 1945 Date of scan: 10/14/2022 Bone mineral density was performed on a Hologic Discovery Densitometer. Based on machine cross-calibration and precision studies the least significant changes of this densitometer is 0.024 g/cm2 at the spine, 0.020 g/cm2 at the total proximal femur, and 0.014g/cm2 at the forearm. HISTORY: This is a 77 y.o. postmenopausal female with a history of breast cancer. She reports that she has never smoked. She has never used smokeless tobacco. Currently on treatment with calcium, vitamin D, aromatase inhibitor, and diuretics and previously treated with glucocorticoids. INDICATIONS: Menopause status, treatment monitoring, history of glucocorticoids use, and aromatase inhibitor therapy. FINDINGS: BONE MINERAL DENSITY OF THE LUMBAR SPINE Bone Mineral Density (BMD) of the lumbar spine was measured from L1-L4 and the average density was calculated to be 1.473 gm/cm2. This corresponds to a T-score (standard deviations from the mean of young adults) of 3.9. There is no previous study available for comparison. BONE MINERAL DENSITY OF THE PROXIMAL FEMUR Bone Mineral Density (BMD) of the left hip total was found to be 1.170 gm/cm2. This corresponds to a T-score standard deviations from the mean of young adults of 1.9. Femoral neck is 0.925 gm/cm2 with a T-score (standard deviations from the mean of young adults) of 0.7. There is no previous study available for comparison. SUMMARY: Bone mineral density is near the young adult normal mean with no increased risk for fracture. ADDITIONAL COMMENTS: Postmenopausal Women and Men Over 50: Diagnostic criteria: Osteoporosis: BMD at or below -2.5 T-score; Osteopenia (low bone mass): BMD between -1.0 and -2.5 T-score. If the patient has a history of a fragility fracture, a fracture that occurred with trauma equivalent to a fall from a standing position or less, then the diagnosis is osteoporosis regardless of bone density. The history and data sections of the bone mineral density scan were prepared by Monika Weiss(Ligia) UGO who is accredited by the International Society of Clinical Densitometry. The overall patient assessment and scan interpretation were performed by Mile Peters MD who is certified by the International Society of Clinical Densitometry. [id number] Valerio Molina MD IMG DXA PROCEDURE S Final Result from Last 3 Months or Most Recently Relevant to Health [place] [address] MEDICARE AETNA SENIOR SUPPLEMENT AET SENIOR SUPPLEMENT MEDICARE AETNA SENIOR SUPPLEMENT Care Teams Blower Mechanic Relationship Specialty Start Date End Date Nikko Jonesniles [address] [facility], [address] [address] PCP - General Internal Medicine 07/07/23 Carl Nicole MD [address] [place] [address] Referring Physician Obstetrics and Gynecology 12/28/21 Saurav Olson MD [address] [place] [address] Referring Physician Nephrology 01/18/22 [place] [address] [place] [id number] Surgeon Surgical Oncology 02/15/22 Valerio Molina MD [address] [facility] [address] Consulting Physician Medical Oncology 02/15/22 Katrin Davis MD [address] [facility] [address] Radiation Oncologist Radiation Oncology 02/15/22 Mary Noriega, PhD [address] [facility] [address] Nurse Practitioner Radiation Oncology 04/11/22
--- OUTSIDE RECORDS SUMMARY | 2024-06-06 15:16 | XMS_ITS | Data Portability ---
Author Organization [facility] [place] Address [address] [place] [place] [address] Care Team Providers Care Supervisor [employer] Name Role Phone EUSEBIA RAMOS Primary Care Provider [phone] Assessment Encounter Date Assessment Date Assessment LastModified by Organization Details LastModified Time 12/20/2021 12/20/2021 Annual gynecological exam performed. Patient will come back in a year unless there are new symptoms. [email or web address] Not available 12/20/2021 14:18:37 01/29/2024 01/29/2024 Annual gynecological exam performed. Patient will come back in a year unless there are new symptoms. [email or web address] Not available 01/29/2024 14:15:22 Plan of Treatment Reminders Order Date Submit Date Provider Last Modified By Organization Details Last Modified Time Details Appointments None recorded. Lab None recorded. Referral None recorded. Procedures None recorded. Surgeries None recorded. Imaging US, pelvis 2020 021 [email or web address] [place], [address], [place], [address], 15:24:57 US, transvagina l 2020 021 [email or web address] [place], [address], [place], [address], 15:24:57 Medication Orders Cipro 500 mg tablet 2022 024 [id number], [address] [facility], [place], [place], [id number], 4 14:20:22 Patient TargetsNo targets recorded. Patient InstructionsNo instructions recorded. Reason for Referral None Reported. Results Created Date Observation Date Name Description Value Unit Range Abnormal Flag Note LastModifiedBy Organization Detail LastModifiedTime 12/21/19 22 12/20/2021 IMAGE GUIDE D PAP AND HPV REGAR DLESS image guided Pap, HPV regardless of Pap result SEE RESULT S BELOW CASE REPOR T: Cytol ogy Gynec ologi garrett Repor t Case: [id number] Autho yaima mcnulty Provi thania: Jazmin Nicole MD Colle cted: 12/20 1801 Order ing Locat ion: [place] [facility] Recei patricia: 12/21 0119 First Scree n: Rosanne Reyes een: Pat Shabazz, CT Speci men: Scree luis manuel Pap - Image d, Cervi x STATE MENT OF ADEQU ACY: Satis facto ry for evalu ation Trans forma tion zone compo nent absen t The absen ce of an endoc ervic al compo nent was confi rmed by an addit ional scree ner. FINAL DIAGN OSIS: Negat dora for Intra epith elial Frederic davis or Rozina wren (NIL) . Funga l organ isms morph ologi angie consi stent with Lexi da spp. Elect dennis ramirez maggie d by Pat Shabazz, CT on 2021 at 6:36 PM ----- ----- ----- ----- ----- ----- ----- ----- ----- ----- ----- ----- ----- ----- ----- ----- ----- ---- HPV RESUL TS: HPV mRNA E6/E7 : No HPV mRNA Detec janie NOTE: This high risk HPV mRNA assay detec ts fourt een high- risk HPV types (16, 18, 31, 33, 35, 39, 45, 51, 52, 56, 58, 59, 66, 68) witho ut diffe renti ation . COMME NT: Note: This speci men was revie wed by a Cytot echno logis t and/o r Patho logis t (as indic ated in this repor t) after evalu ation using the Thinp rep Imagi ng Syste m. CLINI GARRETT INFOR MATIO N: Menst rual Statu s: LMP (if appli cable ): Clini garrett Histo ry/Pr eviou s Pap: Type of Neopl silas (if appli cable ): Signi fican t Clini garrett Findi ngs: Other Histo ry: Hormo kavon (if appli cable ): PAP EDUCA KERRI L NOTE: The Pap Test is a scree luis manuel test with an inher ent false negat dora rate. Liqui d-bas ed sampl ing may decre ase, but will not elimi angus, false negat dora resul ts. A negat dora resul t does not precl ude the prese nce and/o r devel opmen t of disea se, since the prese nce of abnor mal cells in the sampl e depen ds on the locat ion of the lesio n and sampl ing techn ique. Radha nued regul ar scree luis manuel is the best metho d of cance r preve ntion . If repor janie cytol ogic findi ng do not corre late with physi garrett and/o r histo rical findi ngs, furth er inves tigat ion is recom sonal d, as clini angie bull nted. Not Available [facility] (Lab) [address], [place], [address], 12/23/2021 19:39:20 02/01/20 23 01/31/2023 CULTU RE: URINE result report SEE RESULT S BELOW abnormal Test: Cultu re: Urine Speci men Sourc e: Urine Voide d Speci men Type: Urine Speci men Date: 01/31 8:00 AM Resul t Date: 02/03 6:51 AM Resul t Statu s: Final resul t Abnor mal: Yes Resul ting Lab: [facility] [address] [facility] [address] Tel: [phone] CULTU RE ----- ----- ----- --- 50,00 0-75, 000 CFU/m l Prote us mirab ilis (Abno rmal) SUSCE PTIBI LITY ----- ----- ----- --- Prote us mirab ilis METHO D SEN ----- ----- ----- ----- ----- ---- ----- ----- ----- ----- ----- AMPIC ILLIN <=8 ug/mL Susce ptibl e AMPIC ILLIN /SULB ACTAM <=4 ug/mL Susce ptibl e AZTRE ONAM <=4 ug/mL Susce ptibl e CEFAZ YOANNA 4 ug/mL Susce ptibl e CEFEP COURTNEY <=2 ug/mL Susce ptibl e CEFOX ITIN <=8 ug/mL Susce ptibl e CEFTA ZIDIM E <=1 ug/mL Susce ptibl e CEFTR IAXON E <=1 ug/mL Susce ptibl e CIPRO FLOXA KEAGAN <=0.2 5 ug/mL Susce ptibl e GENTA MICIN 4 ug/mL Susce ptibl e LEVOF LOXAC IN <=0.5 ug/mL Susce ptibl e MEROP ENEM <=1 ug/mL Susce ptibl e PIPER ACILL IN/TA ZOBAC TORRES <=8 ug/mL Susce ptibl e TOBRA MYCIN 4 ug/mL Susce ptibl e TRIME THOPR IM/RAINEY LFAME THOXA ZOLE <=0.5 ug/mL Susce ptibl e Not Available [facility] (Lab) [address], [place], [address], 02/03/2023 07:56:02 12/09/19 21 12/08/2020 , lilia Pompa observ ation record ed. [email or web address] [place] [address], [place], [address], 12/08/2020 14:36:25 12/09/19 21 12/08/2020 US, trans vagin al No observ ation record ed. [email or web address] [place] [address], [place], [address], 12/08/2020 14:36:12 12/09/19 21 12/08/2020 US, pelvi s No observ ation record ed. [email or web address] [address] [address], [place], [address], 12/08/2020 17:31:34 01/19/20 22 01/18/2022 US, letty tlua teral No observ ation record ed. [email or web address] [facility] [address] [place] [address], [address], 01/19/2022 11:20:57 Result Notes None recorded. Problems Name Problem SNOMED Code Status Onset Date Resolution Date Notes Provider Name and Address Organization Details Recorded Time Blood leukocyt e number above referenc e range [id number] Completed 201711/09/2020 Elevated white blood cell count, unspecif ied;Prac aiden ID: 0001 Perla perez [facility] 14:19:[address] Concept Completed 201711/09/2020 Encntr for bow maker gift wrapping exam (general ) (routine ) w/o abn findings ;Practic e ID: 0001 Perla perez [facility] 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 1 14:19:27 Body mass index 25-29 - overweig ht [id number] Completed 201511/09/2020 Body mass index (BMI) 28.0-28. 9, adult;Re corded Elsewher e: No Locat ion: [facility] S ource: EHR Chip Separator carloz: N Practi ce ID: 0001 Chinmay lable Time: 11:30:00 AM Perla Blandon [facility] 14:19:10 Screenin g for malignan t neoplasm of cervix Completed 201811/09/2020 Encounte r for screenin g for malignan t neoplasm of cervix;R ecorded Elsewher e: No Locat ion: [facility] S ource: EHR Chip Separator carloz: N Practi ce ID: 0001 Chinmay lable Time: 01:30:00 PM Perla Anne [facility] 14:19:38 Speciali zed medical examinat ion Completed 201311/09/2020 Gynecolo gical Examinat ion;Arnulfo rded Elsewher e: No Locat ion: [facility] S ource: EHR Chip Separator carloz: N Practi ce ID: 0001 Chinmay lable Time: 01:30:00 PM Perla perez [facility] 14:19:31 Screenin g for malignan t neoplasm of rectum Completed 201511/09/2020 Encounte r for screenin g for malignan t neoplasm of rectum;P ractice ID: 0001 Perla Blandon [facility] 14:19:36 Dysuria [id number] Completed 201511/09/2020 Dysuria; Practice ID: 0001 Perla Blandon [facility] 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 1 14:19:14 Adult health examinat ion Completed 201411/09/2020 ROUTINE MEDICAL EXAM;Rec orded Elsewher e: No Locat ion: [facility] S ource: EHR Chip Separator carloz: N Practi ce ID: 0001 Chinmay lable Time: 01:30:00 PM Perla perez [facility] 1 14:19:07 Menopaus e Completed 201811/09/2020 Asymptom atic menopaus al state;Re corded Elsewher e: No Locat ion: [facility] S ource: EHR Chip Separator carloz: N Practi ce ID: 0001 Chinmay lable Time: 12:12:03 PM Perla Blandon [facility] 1 14:19:19 Pre-surg tiffanie evaluati on Completed 201111/09/2020 Pre-oper ative examinat ion, unspecif ied;Prac aiden ID: 0001 Perla Blandon [facility] 1 14:19:41 Problem Notes None recorded. Procedures Surgical History Date Name Laterality Status Provider Name and Address Organization Details Recorded Time 4 Date of Last Mammogram completed [facility] 01/29/2024 14:22:34 4 Date of Last Colonoscopy completed [facility] 01/29/2024 14:23:31 2 lumpectomy of left breast completed [facility] 01/29/2024 14:16:56 2 Date of Last Pap Smear completed Angelica Mina [facility] 01/29/2024 14:20:11 8 bilateral extraction of cataracts completed [facility] 12/20/2021 15:46:34 2 Dilation and Curettage completed [facility] 12/20/2021 15:45:59 0 Dilation and Curettage completed [facility] 12/20/2021 15:45:51 5 Dilation and Curettage completed [facility] 12/20/2021 15:45:47 1 Dilation and Curettage completed [facility] 12/20/2021 15:45:44 removal of dental implant completed [facility] 12/20/2021 15:45:22 dental implant maintenance procedure completed [facility] 12/20/2021 15:45:33 Imaging Results Imaging Date Name Status LastModified by Organization Details LastModified Time 12/08/2020 US, pelvis completed [email or web address] [place] [address], [place], [address], 12/08/2020 14:36:25 12/08/2020 US, transvaginal completed [email or web address] [facility] [address], [place], [address], 12/08/2020 14:36:12 12/08/2020 US, pelvis completed [email or web address] [address], [place], [address], 12/08/2020 17:31:34 01/18/2022 US, breast, unilateral completed [email or web address] [facility] [address] [place], [address], 01/19/2022 11:20:57 Procedure Notes None recorded. Medical Equipment None Reported. Allergies Allergen ID Allergen Name Allergen Category Reaction Reaction Severity Criticality Documentation Date Start Date Code Code System Note Provider Name and Address Organization Details Recorded Time 99282 propylene glycol medicatio n Not available Not available Not available 11/09/2020 58489 RxNorm Perla Blandon [facility] 1 14:34:42 98412 5-chloro- 2-methyl- 4-isothia zolin-3-o ne Not available Not available Not available Not available 11/09/2020 71408 19 RxNorm Perla Blandon [facility] 1 14:34:59 17042 bacitraci n medicatio n Not available Not available Not available 11/09/2020 1291 RxNorm Perla Blandon [facility] 1 14:35:23 1793 adhesive environme nt,medica tion Not available Not available Not available 10/14/2019 97689 UNK Perla Blandon [facility] 0 12:56:40 1794 amlodipin e medicatio n Not available Not available Not available 10/14/2019 10810 RxNorm Perla Blandon [facility] 0 12:56:48 1795 atenolol medicatio n Not available Not available Not available 10/14/2019 1202 RxNorm Perla Anne [facility] 0 12:56:59 1796 celecoxib medicatio n Not available Not available Not available 10/14/2019 71020 7 RxNorm Perla Anne [facility] 0 12:57:08 1797 clindamyc in Not available Not available Not available Not available 10/14/2019 2582 RxNorm Perlashruthi Blandon null, [facility] 0 12:57:18 1798 clonidine medicatio n Not available Not available Not available 10/14/2019 2599 RxNorm Perla Blandon null, [facility] 0 12:57:26 1799 estradiol medicatio n Not available Not available Not available 10/14/2019 4083 RxNorm Perla Blandon null, [facility] 0 12:57:34 1800 hydrocodo ne Not available Not available Not available Not available 10/14/2019 5489 RxNorm Perla perez, [facility] 0 12:57:45 1801 ibuprofen medicatio n Not available Not available Not available 10/14/2019 5640 RxNorm Perla Blandon [facility], [facility] 0 12:58:02 1802 latex environme nt,medica tion Not available Not available Not available 10/14/2019 98049 91 RxNorm Perla Blandon [facility], [facility] 0 12:58:08 1803 meloxicam medicatio n Not available Not available Not available 10/14/2019 58998 RxNorm Perla Blandon [facility], [facility] 0 12:58:14 09202 vancomyci n medicatio n Not available Not available Not available 01/29/2024 68378 RxNorm Angelica Enriquez null, [facility] 4 14:21:10 9857 verapamil medicatio n Not available Not available Not available 02/07/2020 82078 RxNorm Comme nt: [facility]; Not Available [facility] 0 14:14:44 9867 sulfameth oxazole medicatio n Not available Not available Not available 02/07/2020 52959 RxNorm Comme nt: Locat ion: [facility] Niru [facility] Cau sativ e Agent : Septr a; Not Available [facility] 0 14:14:44 9872 trimethop rim medicatio n Not available Not available Not available 02/07/2020 65784 RxNorm Comme nt: Locat ion: [facility] Cau sativ e Agent : Septr a; Not Available [facility] 0 14:14:44 9894 Product containin g penicilli n (product) medicatio n hives Not available Not available 02/07/2020 64790 8001 SNOMED React ion: hives ; Comme nt: Locat ion: [facility]; Not Available [facility] 0 14:14:45 9897 Substance with sulfonami de structure and antibacte rial mechanism of action (substanc e) medicatio n Not available Not available Not available 02/07/2020 51935 8003 SNOMED Comme nt: Locat ion: [facility]; Not Available [facility] 0 14:14:45 9902 Substance with progester one receptor agonist mechanism of action (substanc e) medicatio n Not available Not available Not available 02/07/2020 80900 3001 SNOMED Comme nt: Locat ion: [facility]; Not Available [facility] 0 14:14:45 Medications Name Sig Start Date Stop Date Status Note LastModified by Organization Details LastModified Time compounde d medicatio n Take 1 capsule by mouth every day in the evening active Not Available Not Available No t Available compounde d medicatio n Take 1 capsule by mouth every day in the evening 12/20 completed Not Available Not Available Not Available compounde d medicatio n Take 1 capsule by mouth every day in the evening 12/20 completed Not Available Not Available Not Available hydroxyzi ne HCl 25 mg/mL intramusc ular solution inject 2 millilit er (50MG) by intramus cular route every 6 hours as needed 07/05 completed Prescrib ed Elsewher e: No Locat ion: [facility] odify By: nolan Cage ncounter DateTime : 04/24/19 13 01:30:00 PM Not Available Not Available Not Available Zestril 10 mg tablet take 1 tablet (10MG) by oral route every day 07/05 completed Prescrib ed Elsewher e: No Locat ion: [facility] odify By: nolan Cage ncountmervin DateTime : 04/12/19 12 11:30:00 AM Not Available Not Available Not Available anastrozo le 1 mg tablet active Not Available Not Available Not Available Plaquenil 200 mg tablet take 1 tablet (200MG) by oral route every day 05/27 completed Prescrib ed Elsewher e: Yes Loca tion: [facility]ify By: maryellen hartmanunter DateTime : 12/20/19 12 12:00:00 PM Not Available Not Available Not Available desoximet asone 0.25 % topical cream APPLY TOPICALL Y TO THE AFFECTED AREA TWICE DAILY active Not Available Not Available No t Available azithromy keagan 250 mg tablet TAKE 2 TABLETS BY MOUTH FOR 1 DAY THEN TAKE 1 TABLET BY MOUTH DAILY FOR 4 DAYS 01/28 completed Not Available Not Available Not Available fluconazo le 150 mg tablet TAKE 1 TABLET BY MOUTH 1 TIME 01/28 completed Not Available Not Available Not Available valacyclo vir 1 gram tablet active Not Available Not Available Not Available Claritin 10 mg tablet take 1 tablet by oral route every day 05/06 completed Prescrib ed Elsewher e: Yes Loca tion: [facility] By: nolan hartmanunter DateTime : 04/12/19 12 11:30:00 AM Not Available Not Available Not Available Elidel 1 % topical cream apply by topical route 2 times every day a thin layer to the affected area(s) ; rub in gently and complete ly 09/25 completed Prescrib ed Elsewher e: Yes Loca tion: Mundo niles [facility] By: tgingradha nguyen DateTime : 04/12/19 12 11:30:00 AM Not Available Not Available Not Available lisinopri l 20 mg tablet TAKE 1 TABLET BY MOUTH TWICE DAILY active Not Available Not Available No t Available prednison e 20 mg tablet TAKE 1 TABLET BY MOUTH DAILY FOR 7 DAYS 01/28 completed Not Available Not Available Not Available estradiol 0.1 mg/24 hr semiweekl y transderm al patch APPLY 1 PATCH TO THE SKIN TWICE WEEKLY 01/28 completed Not Available Not Available Not Available clobetaso l 0.05 % topical cream apply by topical route 2 times every day a thin layer to the affected area(s) 12/20 completed Prescrib ed Elsewher e: Yes Loca tion: [facility]ify By: jin nguyen DateTime : 04/12/19 12 11:30:00 AM Not Available Not Available Not Available Karly 60 mg tablet take 1 tablet (60MG) by oral route 2 times every day 05/06 completed Prescrib ed Elsewher e: Yes Loca tion: [facility] By: nolan navas DateTime : 12/20/19 12 12:00:00 PM Not Available Not Available Not Available potassium chloride ER 10 mEq tablet,ex tended release TAKE 4 TABLETS BY MOUTH DAILY active Not Available Not Available No t Available ciproflox acin 500 mg tablet TAKE 1 TABLET BY MOUTH EVERY 12 HOURS 01/28 completed Not Available Not Available Not Available Kenalog 0.147 mg/gram topical aerosol apply by topical route 3 times every day to the affected area(s) 09/19 completed Prescrib ed Elsewher e: Yes Loca tion: [facility]ify By: ana toussaint DateTime : 05/28/19 14 01:30:00 PM Not Available Not Available Not Available Zantac 150 mg tablet take 1 tablet by oral route 2 times every day 09/15 completed Prescrib ed Elsewher e: Yes Loca tion: [facility]ify By: nolan hartmanuntmervin DateTime : 04/12/19 12 11:30:00 AM Not Available Not Available Not Available Macrobid 100 mg capsule take 1 capsule by oral route every 12 hours with food 03/19 completed Prescrib ed Elsewher e: No Locat ion: [facility] By: deepa nguyen DateTime : 03/10/19 17 11:35:18 AM Not Available Not Available Not Available oxycodone -acetamin ophen 5 mg-325 mg tablet TAKE 1 TABLET BY MOUTH EVERY 4 TO 6 HOURS NEEDED FOR PAIN 12/20 completed Not Available Not Available Not Available potassium 99 mg tablet 05/27 completed Prescrib ed Elsewher e: Yes Loca tion: [facility]ify By: maryellen navas DateTime : 04/12/19 12 11:30:00 AM Not Available Not Available Not Available progester one 50 mg/mL intramusc ular oil inject 0.1 millilit er by intramus cular route every day 11/02 completed Prescrib ed Elsewher e: Yes Loca tion: [facility]ify By: deepa nguyen DateTime : 07/06/19 16 11:30:00 AM Not Available Not Available Not Available venlafaxi ne 37.5 mg tablet 01/28 completed Not Available Not Available Not Available Dyrenium 50 mg capsule take 1 capsule by oral route every day after a meal 12/20 completed Prescrib ed Elsewher e: Yes Loca tion: [facility]ify By: jin nguyen DateTime : 04/12/19 12 11:30:00 AM Not Available Not Available Not Available triamcino lone acetonide 0.1 % topical ointment APPLY TOPICALL Y TO THE AFFECTED AREA AT BEDTIME 01/28 completed Not Available Not Available Not Available Prednison e Intensol 5 mg/mL oral concentra te take 1 millilit er by oral route every day 09/19 completed Prescrib ed Elsewher e: Yes Loca tion: [facility]ify By: ana toussaint DateTime : 08/18/19 19 03:00:00 PM Not Available Not Available Not Available ibuprofen 400 mg tablet take 1 tablet by oral route 4 - 6 hours as needed 09/18 completed Prescrib ed Elsewher e: Yes Loca tion: [facility] odify By: mary lou Giron ter DateTime : 04/12/19 12 11:30:00 AM Not Available Not Available Not Available metoprolo l tartrate 50 mg tablet TAKE 1/2 TABLET BY MOUTH TWICE DAILY active Not Available Not Available No t Available progester one micronize d 200 mg capsule active Not Available Not Available Not Available triamtere ne 37.5 mg-hydroc hlorothia zide 25 mg tablet TAKE 1/2 TABLET BY MOUTH TWICE DAILY active Not Available Not Available No t Available Tylenol 325 mg tablet take 1 tablet by oral route every 4 hours as needed 05/06 completed Prescrib ed Elsewher e: Yes Loca tion: [facility] odify By: nolan Cage ncounter DateTime : 04/12/19 12 11:30:00 AM Not Available Not Available Not Available Viactiv 500 mg-100 unit-40 mcg chewable tablet 05/06 completed Prescrib ed Elsewher e: Yes Loca tion: [facility] odify By: nolan hartmanunter DateTime : 11/13/19 14 12:00:00 PM Not Available Not Available Not Available mupirocin 2 % topical ointment JOSE EXT AA TID active Not Available Not Available No t Available azelastin e 137 mcg (0.1 %) nasal spray active Not Available Not Available Not Available epinephri ne 0.3 mg/0.3 mL injection , auto-inje ctor INJECT THE CONTENTS OF 1 PEN IN THE MUSCLE EVERY 5 TO 15 MINUTES NEEDED FOR ANAPHYLA XIS. DO NOT EXCEED 3 DOSES PER EPISODE active Not Available Not Available No t Available Nasonex 50 mcg/actua tion [place] spray 2 spray by intranas al route every day in each nostril 05/27 completed Prescrib ed Elsewher e: Yes Loca tion: [facility] odify By: maryellen hartmanunter DateTime : 04/12/19 12 11:30:00 AM Not Available Not Available Not Available fluocinon jeff 0.05 % topical solution 12/20 completed Not Available Not Available Not Available methylpre dnisolone 4 mg tablets in a dose pack FOLLOW PACKAGE DIRECTIO NS 01/28 completed Not Available Not Available Not Available clobetaso l 0.05 % scalp solution APPLY SCALP RASH TWICE DAILY NEEDED 12/20 completed Not Available Not Available Not Available fluticaso ne propionat e 50 mcg/actua tion nasal spray,shaista pension spray 1 spray by intranas al route every day in each nostril 12/20 completed Prescrib ed Elsewher e: Yes Loca tion: Dara cage [facility] odify By: nolan navas DateTime : 11/13/19 14 12:00:00 PM Not Available Not Available Not Available doxycycli ne hyclate 100 mg tablet take 1 tablet by oral route every day 05/27 completed Prescrib ed Elsewher e: Yes Loca tion: Dara cage [facility] odify By: [email or web address] navas DateTime : 04/12/19 12 11:30:00 AM Not Available Not Available Not Available estradiol 0.1 mg/24 hr weekly transderm al patch APPLY 1 PATCH EXTERNAL LY TO THE SKIN EVERY WEEK 2019 active Not Available Not Available Not Avai lable diazepam 5 mg tablet 01/28 completed Not Available Not Available Not Available progester one micronize d 100 mg capsule take one capsule by mouth every day in evening 01/28 completed Not Available Not Available Not Available metoprolo l tartrate 25 mg tablet take 1 tablet by oral route 2 times every day 12/20 completed Prescrib ed Elsewher e: Yes Loca tion: Dara cage [facility] odify By: [email or web address] Maya toussaint DateTime : 04/24/19 13 01:30:00 PM Not Available Not Available Not Available Vitamin D3 active Not Available Not Available Not Available Astepro 205.5 mcg (0.15 %) nasal spray spray 1 spray by intranas al route 2 times every day in each nostril 07/05 completed Prescrib ed Elsewher e: Yes Loca tion: Dara cage [facility] odify By: nolan navas DateTime : 11/13/19 14 12:00:00 PM Not Available Not Available Not Available Calcium 600 + D(3) 600 mg-5 mcg (200 unit) capsule 05/06 completed Prescrib ed Elsewher e: Yes Loca tion: Dara cage [facility] odify By: genevievel E ncounter DateTime : 11/13/19 14 12:00:00 PM Not Available Not Available Not Available Karly Allergy active Not Available Not Available Not Available Vitals Date Recorded Body height Body mass index (BMI) Body weight Systolic blood pressure Diastolic blood pressure Provider Name and Address Organization Details Last Updated DateTime 12/17/2020 160.02 cm 29.1 kg/m2 87990.15 g 134 mm[Hg] 73 mm[Hg] [facility] 1 14:15:36 Date Recorded Body height Body mass index (BMI) Body weight Systolic blood pressure Diastolic blood pressure Provider Name and Address Organization Details Last Updated DateTime 12/20/2021 160.02 cm 28.3 kg/m2 27055.78 g 117 mm[Hg] 72 mm[Hg] [facility] 2 14:33:51 Date Recorded Body height Body mass index (BMI) Body weight Systolic blood pressure Diastolic blood pressure Provider Name and Address Organization Details Last Updated DateTime 01/30/2023 160.02 cm 27.8 kg/m2 06467 g 156 mm[Hg] 72 mm[Hg] [facility] 3 17:02:51 Date Recorded Body height Body mass index (BMI) Body weight Systolic blood pressure Diastolic blood pressure Provider Name and Address Organization Details Last Updated DateTime 01/29/2024 160.02 cm 27.1 kg/m2 40499.63 g 144 mm[Hg] 71 mm[Hg] Angelica Enriquez [facility] 4 14:16:32 Social History None recorded. Functional Status None recorded. Mental Status None recorded. Family History Relationship Description Onset Age of this Age Resolved Age Notes LastModified by Organization Details LastModified Time Mother Malignant neoplasm of uterus [email or web address] Not available 2021 15:44:29 Father Hypertensive disorder [email or web address] Not available 2021 15:44:38 Father Heart disease [email or web address] Not available 2021 15:44:58 Paternal Grandmother Cerebrovascu lar accident [email or web address] Not available 15:44:51 Medical History Condition Response Autoimmune disease Y Other Y Eczema Y Hypertension Y Breast Cancer Y Gynecological History Statement/Question Response Abnormal Pap N Date of Last Mammogram 09/21/2023 On BCP's at Conception? N STIs/STDs N HPV Vaccine N Current Control Method Menopause Date of Last Colonoscopy 02/20/2023 Sexually Active? N Menses Monthly N Date of DEXA bone scan 05/16/2018 Date of Last Pap Smear 12/20/2021 Sexual Problems? N Obstetrics History GPAL:G 0 P 0 0 0 0 Past Encounters Encounter ID Performer Location Encounter Start Date Encounter Closed Date Diagnosis/Indication Diagnosis SNOMED-CT Code Diagnosis ICD10 Code Diagnosis Note [id number] Carl Nicole MD [facility] [address],[place] [address] 10/14/2019 12:35:19 10/14/2019 13:18:45 Gynecologic examination 85454142 Z01.419 This patient is here for her annual exam. A thorough history was taken. A physical exam was performed. Age appropriat e routine health screening was ordered, performed, and discussed. Recommende d testing was ordered. She was asked to follow up in one year. She will be informed of any test results. Mammogram - [ done] Colonoscop y - [done ] Bone Density - [next year ] Cholestero l - [done ] Pap - today Episode of postmenopa usal bleeding secondary to corticoste roid use. She has experience d this in the past. To obtain a pelvic ultrasound to confirm there is no concern. Menopausal symptom 94288 002 N95.1 Postmenopa usal bleeding 47477867 N95.0 [id number] Radha [facility] [address],[place] [address] 11/19/2019 16:25:10 11/19/2019 17:43:19 Postmenopausal bleeding 25214645 N95.0 [id number] Carl Nicole MD [facility] [address] [address] 11/19/2019 16:25:40 11/19/2019 18:49:07 Menopausal symptom 68751567 N95.1 Postmenopa usal bleeding 68904490 N95.0 this patient is a 74-year-ol d female who had an episode of bleeding. She is known to have episodes of bleeding after she has rounds of steroids. This was 1 such occasion. An ultrasound was performed. She had an essentiall y normal endometriu m. It was 5 mm. She is taking estradiol as a transderma l patch and oral progestero ne. Agreed not to perform biopsy. She understand s that endometria l thickness is not an absolute indicator of benign activity at the endometriu m. She understand s that we cannot reliably say that there is no endometria l cancer without a biopsy. She declines biopsy. We will continue to observe bleeding. [id number] Carl Nicole MD [facility] [address],[place] [address] 11/09/2020 14:15:55 11/09/2020 15:02:15 Menopausal symptom 16991213 N95.1 this patient is a 75-year-ol d female presents for follow-up on endometria l thickening and postmenopa usal bleeding. She bled after a steroid shot. We discussed this at her last visit. That was More than 9 months ago. She has not had any bleeding since that time. She had a very mildly thickened endometriu m. It was 5 mm. We talked about that today. We agreed to follow up on repeat the ultrasound . risks and benefits of combined hormone replacemen t therapy were discussed with the patient again today. She understand s there is an increased risk of heart attack breast cancer and stroke possibly with hormone replacemen t therapy in her age group. It is uncertain whether results from the women's health study applied to the bioidentic al hormones that she is taking. She understand s that. We spent more than 15 minutes face-to-fa ce discussing various aspects of her care. We agreed to a follow-up after pelvic ultrasound . Endometrium thickened 44 7806163 R93.89 [id number] Radha Mitchell [facility] [address],[place] [address] 12/08/2020 13:58:34 12/08/2020 15:08:53 Endometrium thickened [id number] R93.89 [id number] Carl Nicole MD [facility] [address],[place] [address] 12/17/2020 14:06:55 12/17/2020 16:01:53 Lesion of endometrium 5877387751 9101 N85.9 this patient is a 75-year-ol d female presents for follow-up on endometria l lesion. The endometria l lesion is stable. Is very small fluid collection adjacent to the endometriu m. Her other cystic structures of the cervix are not stable. Her endometria l lining is for less than 4 mm. We agreed to observe. Will follow-up as needed. [id number] Carl Nicole MD [facility] [address],[place] [address] 12/20/2021 13:59:57 12/20/2021 21:31:41 Gynecologic examination 30775529 Z01.419 This patient is here for her annual exam. A thorough history was taken. A physical exam was performed. Age appropriat e routine health screening was ordered, performed, and discussed. Recommende d testing was ordered. She was asked to follow up in one year. She will be informed of any test results. Mammogram - [ done] Colonoscop y - [done ] Bone Density - [next year ] Cholestero l - [done ] Pap - today Episodes of postmenopa usal bleeding, likely missed o progestero ne pills. We are work on it if it persists. [id number] Carl Nicole MD [facility] [address],[place] [address] 01/29/2024 13:55:08 01/29/2024 15:00:27 Gynecologic examination 16972062 Z01.419 This patient is here for her annual exam. A thorough history was taken. A physical exam was performed. Age appropriat e routine health screening was ordered, performed, and discussed. Recommende d testing was ordered. She was asked to follow up in one year. She will be informed of any test results. Mammogram - [ done] Colonoscop y - [done ] Bone Density - scheduled Cholestero l - [done ] Pap - today [id number] Carl Nicole MD [facility] [address],[place] [address] 01/30/2023 16:41:37 01/31/2023 09:24:17 Urinary tract infectious disease 29561610 N39.0 7-year-old female with dysuria and urgency. She is some suprapubic tenderness . We agreed to treat for urinary tract infection. Her urine was tainted with azo. To send urine for culture and urinalysis . Medication s prescribed . Patient was given precaution s . to follow up as needed. Health Concerns Section Related Observation LastModified by Organization Detai ls LastModified Time None Recorded Concern Status LastModified by Organization Details LastModified Time None Recorded Advance Directives Directive None Recorded Payers Encounter Date Sequence Insurance Name Policy Number Policy Falk Covered Member ID Falk Member ID Guarantor Name 12/08/2020 2 [place] [employer] - PLAN F (MEDICARE SUPPLEMENT) Mikayla Fitzgerald [id number] 12/08/2020 1 [place] Mikayla Fitzgerald [id number] 12/17/2020 2 [place] [email or web address] - PLAN F (MEDICARE SUPPLEMENT) Mikayla Fitzgerald [id number] 12/17/2020 1 [place] Mikayla Fitzgerald [id number] 12/20/2021 1 [place] Mikayla Fitzgerald [id number] 12/20/2021 2 [employer] Mikayla Fitzgerald [id number] 01/30/2023 1 [place] Mikayla Fitzgerald [id number] 01/30/2023 2 [employer] Mikayla Fitzgerald [id number] 01/29/2024 1 [place] Mikayla Fitzgerald [id number] 01/29/2024 2 [employer] (MEDICARE SUPPLEMENT) Mikayla Fitzgerald [id number] Notes Date Note Type Note Provider Name and Address Organization Details Recorded Time 12/17/2020 text/html this patient is a 75-year-old female presents for follow-up on endometrial lesion. The endometrial lesion is stable. Is very small fluid collection adjacent to the endometrium. Her other cystic structures of the cervix are not stable. Her endometrial lining is for less than 4 mm. We agreed to observe. Will follow-up as needed. Carl Nicole MD [address], [place], [address], [facility] 12/17/2020 14:48:32 12/20/2021 text/html Annual GYNReport ed bypatient.History: no gynecologic complaints Urinary symptoms:No hematuria; No incontinence Vulva:No genital lesion Vagina:Normal vaginal discharge Breast:No breast pain; No breast lump Menopausal Symptoms:No menopausal symptoms; Txed Psychological symptoms:No depression; No anxiety Preventive measures:Encourage self breast examination; Encourage regular exercise Carl Nicole MD [address], [place], [address], [facility] 12/20/2021 20:10:48 01/30/2023 text/html 7-year-old femal e with dysuria and urgency. She is some suprapubic tenderness. We agreed to treat for urinary tract infection. Her urine was tainted with azo. To send urine for culture and urinalysis. Medications prescribed. Patient was given precautions . to follow up as needed. Carl Nicole MD [address], [place], [address], [facility] 01/30/2023 17:36:05 01/29/2024 text/html Annual GYNReport ed bypatient.History: no gynecologic complaints Urinary symptoms:No hematuria Vulva:No genital lesion Vagina:Normal vaginal discharge Breast:No breast pain; No breast lump Sexual complaints:No sexual complaints; No pain during intercourse Menopausal Symptoms:Hot flashes Psychological symptoms:No depression; No anxiety Preventive measures:Encourage self breast examination; Encourage regular exercise Carl Nicole MD [address], [place], [address], [facility] 01/29/2024 15:00:16 OBGyn Episode No OBEpisode recorded.
--- OUTSIDE RECORDS SUMMARY | 2024-06-06 15:16 | XMS_ITS | Clinical Summary ---
Author Organization [facility] Address [address] [place] [address] Care Team Providers Care Charge Histotechnologist Name Role Phone Carl Nicole MD Unavailable [phone] Saurav Olson MD Unavailable [phone] Julienne Collins MD Unavailable [phone] Valerio Molina MD Unavailable Katrin Davis MD Unavailable Mary Noriega PhD Unavailable [phone] Edwin Jones DO Primary Care Provider [phone] Allergies Active Allergy Reactions Criticality Noted Date [...] 1 capsule (2,000 Units total) by mouth applique cutter before breakfast Active ascorbic acid (VITAMIN C) 500 mg tablet,chewable Indications:sup plement Take 1 tablet/chew tab (500 mg total) by mouth applique cutter before breakfast Active diphenhydrAMINE (BENADRYL) 25 mg [...] from 12/30/2021:Stage IA(cT1c, cN0, cM0, G3, ER+, MA+, HER2-) - Signed by Jeimy Biggs MD on 03/17/2022 Pathologic stage from 02/07/2022:Stage IA(pT1c, pN0(sn), cM0, G1, ER+, MA+, HER2-) - Signed by Jeimy Biggs MD on 03/17/2022 Encounters Date Type Department Care Team Description 04/16/2024 1:15 PM TELESALES TEAM LEADER Office Visit [facility] Radiation Oncology [address] [facility] [place] [address] Kitty Huitron NP Malignant neoplasm of lower-inner quadrant of left breast in female, estrogen receptor positive (HCC) [C50.312, Z17.0] (Primary Dx) from Last 3 Months Surgical History Surgery Date Site/Laterality Comments BREAST BIOPSY 12/30/2021 Left IMPLANT 02/20/2015 - 02/20/2016 BREAST BIOPSY 01/20/2022 Left DILATION AND CURETTAGE OF UTERUS x5 HYSTEROSCOPY EYE SURGERY Bilateral cataract Medical History Medical History Date Comments Hypertension Lupus Chronic disorder of skin Breast cancer (HCC) Family History Medical History Relation Name Comments Stroke Mother Transient ischemic attack Mother Anesthesia problems Neg Hx Relation Name Status Comments Mother Social History Tobacco Use Types Packs/Day Years [...] on file Legal Sex Female 5:55 AM TELESALES TE[employer] LEAD[employer] Gender Identity Not on file Sexual Orientation Not on file Obstetrics History Para Term AB IAB SAB Ectopic Multiple Livin g Live Births 0 0 Last Filed Vital Signs Vital Sign Reading Time Taken Comments Blood Pressure 120/66 01/10/2024 3:28 PM TELESALES TEAM LEADER Pulse 95 01/10/2024 3:28 PM TELESALES TEAM LEADER Temperature 37.2 C (99 F) 01/10/2024 3:28 PM TELESALES TEAM LEADER Respiratory Rate 18 01/10/2024 3:28 PM TELESALES TEAM LEADER Oxygen Saturation 96% 01/10/2024 3:28 PM TELESALES TEAM LEADER Inhaled Oxygen Concentration - - Weight 70.2 kg (154 lb 11.2 oz) 04/16/2024 1:08 PM TELESALES TEAM LEADER Height 162.6 cm (5' 4.02 ) 10/17/2023 1 1:12 AM CDT Body Mass Index 26.54 10/17/2023 11:12 AM CDT Plan of Treatment Health Maintenance Due Date Last Done Comments Depression Screening 1945 Hepatitis C Screening 1945 DTaP/Tdap/Td Vaccine (1 - Tdap) 05/23/1958 Hepatitis B Screening 05/23/1965 Pneumococcal vaccine 65+ (1 of 2 - PCV) 05/23/1966 Zoster Vaccine (1 of 2) 05/23/1966 Well Visit 65+ 05/23/2012 Fall Risk Assessment 03/17/2023 03/17/2022, 02/08/20 22 Osteoporosis Screening-Bone Density Scan 10/14/2024 10/14/2022 Influenza Vaccine (Season Ended) 2024 12/26/2017, 12/25/2017, 11/20/2012 Breast Cancer Screening-Mammogram Discontinued 10/17/2023, 10/14/2022, 12/14/2021, Additional history exists Medical Devices Implanted Type Area Block Setter Gypsum Device Identifier Shelf Expiration Date Model / Serial / Lot Bard Peripheral Vascular Ultraclip Bard 17ga 10cm 2 Trigger Permanent Ultrasound [id number] - [id number] Implanted:Qty: 1 on 12/30/2021 at [facility] Left: Breast Bard Peripheral Vascular [id number] / / [employer] Magseed 18ga 7cm Marker Breast Biopsy [id number] - [id number] Implanted:Qty: 1 on 01/28/2022 at [facility] [employer] [id number] 10/20/2025 [id number] Procedures Procedure Name Priority Date/Time Associated Diagnosis [...] breast in female, estrogen receptor positive (HCC) pen[facility] (current) use of aromatase inhibitors from Last [...] it. Electronically signed by: Yasmany Eller MD Julienne Collins MD IMG MAMMO PROCEDURES Fi nal Result * Dexa Axial Skeleton Bone Density 1 or 2 Site (10/14/2022 8:53 AM CDT) Anatomical Region Laterality Modality Body N/A Radiographic Debby ging Narrative 10/14/2022 1:13 PM CDT Patient Name: Mikayla Fitzgerald Date of : 1945 Date of scan: 10/14/2022 Bone mineral density was performed on a HoloCollexpo Discovery Densitometer. Based on machine cross-calibration and [...] mineral density scan were prepared by Monika Pereira) UGO who is accredited by the International Society of Clinical Densitometry. The overall patient assessment and scan interpretation were performed by Mile Peters MD who is certified by the International Society of Clinical Densitometry. [id number] us Valerio Molina MD IMG DXA PROCEDURE S Final Result from Last 3 Months or Most Recently Relevant to Health Maintenance Insurance MEDICARE [employer] SENIOR SUPPLEMENT MEDICARE [place] [address] MEDICARE [facility] Address: [address] [address] AET[employer] SENIOR SUPPLEMENT Care Teams Charge Histotechnologist Relationship Specialty Start Date End Date Edwin Jones DO [address] [facility], [address] [address] PCP - General Internal Medicine 07/07/23 Carl Nicole MD [address] [place] [address] Referring Physician Obstetrics and Gynecology 12/28/21 Saurav Olson MD [address] [place] [address] Referring Physician Nephrology 01/18/22 Julienne Collins MD [address] [address] Surgeon Surgical Oncology 02/15/22 Valerio Molina MD [address] [facility], [address] [address] Consulting Physician Medical Oncology 02/15/22 Katrin Davis MD [address] [facility], [address] [address] Radiation Oncologist Radiation Oncology 02/15/22 Mary Noriega, PhD [address] [facility], [address] [address] Nurse Practitioner Radiation Oncology 04/11/22
--- OUTSIDE RECORDS SUMMARY | 2024-06-06 15:16 | XMS_ITS | Clinical Summary ---
Author Organization [facility] Address [address] [place] [id number] Phone Care Team Providers Care Solar Pv Installer Name Role Phone Chandan Richardson DO Primary Care Provider [phone] Allergies Active Allergy Reactions Criticality Noted Date Comments Amlodipine 07/23/2012 Atenolol 07/23/2012 Celecoxib 07/23/2012 Clindamycin 06/25/2014 Clonidine 07/23/2012 Estradiol 07/23/2012 Hydrocodone 01/19/2016 Ibuprofen 03/06/2018 Latex 12/22/2021 Meloxicam 03/06/2017 Methylisothiazolinone 12/22/2021 Neomycin 07/23/2012 Other 07/23/2012 Penicillins Rash Low 07/23/2012 Progestins 07/23/2012 Propylene Glycol 12/22/2021 Sulfa Antibiotics Anaphylaxis High 07/23/2012 Trimethoprim 12/22/2021 Verapamil 07/23/2012 Medications mometasone (NASONEX) 50 MCG/ACT nasal spray 10/16/2011 Active Calcium-Vitamin D 600-200 MG-UNIT per tablet 1 daily 0 06/24/2015 Active JENNYFER 0.1 MG/24HR JOSE 1 PA EXT TO THE SKIN 2 TIMES Q WK 03/01/2019 Active progesterone (PROMETRIUM) 100 MG capsule Take 100 mg by mouth every other day Active famotidine (PEPCID) 20 MG tablet Take by mouth Active clobetasol (TEMOVATE) 0.05 % external solution APPLY SCALP RASH TWICE DAILY NEEDED 04/16/2020 Active fluticasone HFA (FLOVENT HFA) 44 MCG/ACT inhaler Inhale 1 puff 2 (two) times a day Active metoprolol tartrate (LOPRESSOR) 50 MG tablet Take 0.5 tablets (25 mg total) by mouth 2 (two) times a day 90 tablet 3 04/19/2021 Active triamterene-hyd roCHLOROthiazid e (MAXZIDE-25) 37.5-25 MG per tablet Take 0.5 tablets by mouth 2 (two) times a day 90 tablet 3 04/19/2021 Active Estradiol (ESTRACE VA) Insert into the vagina Patch Active potassium chloride (KLOR-CON) 10 MEQ CR tablet TAKE 2 TABLETS BY MOUTH DAILY 180 tablet 3 01/08/2022 Active lisinopril (PRINIVIL) 20 MG tablet TAKE 1 TABLET BY MOUTH TWICE DAILY 180 tablet 3 01/08/2022 Active Active Problems Problem Noted Date Diagnosed Date Generalized edema 06/22/2016 Hypo-osmolality and hyponatremia 09/01/2011 Essential (primary) hypertension 09/01/2011 Immunizations Immunization Administration Dates Next Due Influenza Split 11/20/2012 Influenza Split High Dose Pr eservative Free IM 12/26/2017,12/25/2017 Influenza TIV (IM) 12/22/2021(Deferred: Patient Refused) Influenza, Injectable, Quadrivalent 11/20/2012 Family History Medical History Relation Comments Kidney stone Relative Relation Status Comments Relative Social History Tobacco Use Types Packs/Day Years Used Date Smoking Tobacco: Never Smokeless Tobacco: Never Comments Unknown Sex and Gender Information Value Date Recorded Sex Assigned at Not on file Legal Sex Female 7:20 AM [facility] Gender Identity Not on file Sexual Orientation Not on file Last Filed Vital Signs Vital Sign Reading Time Taken Comments Blood Pressure 122/72 12/22/2021 2:48 PM CDT Pulse 72 12/22/2021 2:48 PM CDT Temperature 36.3 C (97.3 F) 12/22/2021 2:48 PM CDT Respiratory Rate - - Oxygen Saturation - - Inhaled Oxygen Concentration - - Weight 73.5 kg (162 lb) 12/22/2021 2:48 PM CDT Height 162.6 cm (5' 4 ) 12/22/2021 2:48 PM CDT Body Mass Index 27.81 12/22/2021 2:48 PM CDT Plan of Treatment Health Maintenance Due Date Last Done Comments Pneumococcal PPSV23/PCV13 65 + Years / Low and Medium Risk (1 of 4 - PCV) 05/23/1997 Influenza Vaccine (Season Ended) 2024 11/21/19 13 Insurance MEDICARE AET Care Teams Solar Pv Installer Relationship Specialty Start Date End Date Chandan Richardson DO [address] [facility] [address] [place] [address] PCP - General Internal Medicine 04/22/19
--- OUTSIDE RECORDS SUMMARY | 2024-06-06 15:16 | XMS_ITS | Clinical Summary ---
Author Organization [facility] Address [address] [place] [phone] Phone Care Team Providers Care Honey Grader And Blender Name Role Phone Unavailable Primary Care Provider Unavailabl e Social History Tobacco Use Types Packs/Day Years Used Date Smoking Tobacco: Never Assessed Comments Unknown Sex and Gender Information Value Date Recorded Sex Assigned at Not on file Legal Sex Female 10:48 AM CDT Gender Identity Not on file Sexual Orientation Not on file Plan of Treatment Health Maintenance Due Date Last Done Comments DTAP/TDAP/TD VACCINES (1 - Tdap) 05/23/1966 PNEUMOCOCCAL VACCINE 50+ YEARS (1 of 1 - PCV) 05/23/18 98 ZOSTER VACCINE (1 of 2) 05/23/1997 OSTEOPOROSIS SCREENING 05/23/2012 RSV VACCINE (60+ or ) (1 - 1-dose 75+ series) 05/23/2022 INFLUENZA VACCINE (#1) [address] [place] [address] MEDICARE PART A AND B AETNA MEDICARE SUPP AESSI
--- OUTSIDE RECORDS SUMMARY | 2024-06-06 15:16 | XMS_ITS ---
Author Organization [facility] Address [address] [place] [address] Care Team Providers Care Technical Illustrations Map Inker Name Role Phone Carl Nicole MD Unavailable [phone] Saurav Olson MD Unavailable [phone] Julienne Collins MD Unavailable [phone] Valerio Molina MD Unavailable Katrin Davis MD Unavailable Mary Noriega PhD Unavailable [phone] Edwin Jones DO Primary Care Provider [phone] Active Problems Problem Noted Date Diagnosed Date Radiotherapy follow-up examination 04/12/2023 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, estrogen receptor positive 01/12/2022 Cancer Staging:Clinical stage from 12/30/2021:Stage IA(cT1c, cN0, cM0, G3, ER+, WA+, HER2-) - Signed by Jeimy Biggs MD on 03/17/2022 Pathologic stage from 02/07/2022:Stage IA(pT1c, pN0(sn), cM0, G1, ER+, WA+, HER2-) - Signed by Jeimy Biggs MD on 03/17/2022 Current Treatment and Therapy Plans No current plan information found. Past Treatment and Therapy Plans No past plan information found. Radiation Treatments * Course C1 LT [id number]/2022 - 04/06/2022 Treatment Period Energy Fraction Dose Fractions Total Dose Plans Planned LT BREAST 03/31/2022 - 04/06/2022 600 5 / 3,000 Reference Points Delivered [id number] 03/31/2022 - 04/06/2022 3,000
--- OUTSIDE RECORDS SUMMARY | 2024-06-06 15:16 | XMS_ITS | Clinical Summary ---
Author Organization [facility] Address [address] [place] [address] Care Team Providers Care Trainman Name Role Phone Chandan Richardson DO Primary Care Provider Source Comments [facility],non-owned Affiliates and Associated Physician Practices is amultiple site organization consisting of ambulatory clinics and hospital sitesin [place], [place], [place] and [place]. This disclosure is being madepursuant to the Care Everywhere program and may not contain all information available regarding this patient. Last updated 17.[facility] [employer] Allergies Active Allergy Reactions Criticality Noted Date Comments Amlodipine Base Unknown 07/23/2012 Atenolol Unknown 07/23/2012 Celecoxib Unknown 07/23/2012 Clindamycin Unknown 06/25/2014 Clonidine Unknown 07/23/2012 Hydrocodone Unknown 01/19/2016 Ibuprofen Skin Reactions 03/06/2018 Neomycin Skin Reactions 07/23/2012 Penicillins Rash Medium 07/23/2012 Progestins Unknown 07/23/2012 Sulfa Drugs Anaphylaxis High 07/23/2012 Verapamil Unknown 07/23/2012 Medications * Be aware that medications may not be up to date on this document. Alwaysverify current medications with the patient. fluocinonide (LIDEX) 0.05 % solutionIndicati ons:Other eczema Apply to affected area on scalp BID. 30 day supply. 60 mL 3 0 Active triamterene-hydr oCHLOROthiazide (MAXZIDE-25) 37.5-25 MG tablet Take 0.5 tablets by mouth 2 times daily 0 Active progesterone micronized (PROMETRIUM) 100 MG capsule Take 100 mg by mouth every other day as needed Active potassium chloride ER (KLOR-CON) 10 MEQ tablet Take 20 mEq by mouth once daily 9 Active metoprolol tartrate (LOPRESSOR) 50 MG tablet Take 25 mg by mouth 2 times daily 0 Active azelastine (ASTELIN) 0.1 % nasal spray [place] 2 sprays into each nostril 2 times daily 0 Active calcium-vitamin D (CALTRATE PLUS D) 600-200 MG-UNIT tablet Take 1 tablet by mouth once daily 6 Active estradiol (CLIMARA) 0.1 MG/24HR patch Apply 1 patch to skin every 7 days 0 Active famotidine (PEPCID) 20 MG tablet Take 20 mg by mouth once daily Active fexofenadine (LENNY) 180 MG tablet Take 1 tablet by mouth once daily as needed 2 Active lisinopril (PRINIVIL; ZESTRIL) 20 MG tablet Take 20 mg by mouth 2 times daily 0 Active mupirocin (BACTROBAN) 2 % ointmentIndicati ons:Allergic contact dermatitis, unspecified trigger Apply to affected area 3 times daily 22 g 3 0 Active clobetasol (TEMOVATE) 0.05 % solutionIndicati ons:Allergic contact dermatitis, unspecified trigger Apply scalp rash bid as needed. 30 days supply. 50 mL 3 0 Active desoximetasone (TOPICORT) 0.25 % creamIndications :Allergic contact dermatitis, unspecified trigger Apply to rash on trunk and extremities twice daily. 30 days supply. 100 g 3 0 Active Active Problems Problem Noted Date Diagnosed Date Osteoarthritis of knee 12/14/2016 Generalized edema 06/22/2016 Essential (primary) hypertension 09/01/2011 Hypo-osmolality and hyponatremia 09/01/2011 Immunizations Immunization Administration Dates Next Due INFLUENZA VACCINE, HIGH-DOSE , QUADR. (FLUZONE HIGH-DOSE QUADRIVALENT; 65Y+), 0.7 ML (HD-IIV4) 12/26/2017,12/25/2017 INFLUENZA VACCINE, QUADR. (A FLURIA, FLUZONE QUADRIVALENT; 6MO+) (IIV4) 11/20/2012 Family History Medical History Relation Name Comments None Known Brother Cancer - Skin, Melanoma Father None Known Maternal Aunt None Known Maternal Grandfather None Known Maternal Grandmother None Known Maternal Uncle CVA Mother None Known Other None Known Paternal Aunt None Known Paternal Grandfather None Known Paternal Grandmother None Known Paternal Uncle None Known Sister Asthma Neg Hx Cancer - Breast Neg Hx Cancer - Other Neg Hx Cancer - Skin, Non Melanoma Neg Hx Eczema Neg Hx Hemophilia Neg Hx Psoriasis Neg Hx Relation Name Status Comments Brother Father Maternal Aunt Maternal Grandfather Maternal Grandmother Maternal Uncle Mother Other Paternal Aunt Paternal Grandfather Paternal Grandmother Paternal Uncle Sister Social History Tobacco Use Types Packs/Day Years Used Date Smoking Tobacco: Never Smokeless Tobacco: Never Alcohol Use Standard Drinks/Week Comments Not Currently 0 (1 standard drink = 0.6 oz pur e alcohol) Comments Unknown Sex and Gender Information Value Date Recorded Sex Assigned at Not on file Legal Sex Female 3:10 PM CDT Gender Identity Not on file Sexual Orientation Not on file Plan of Treatment Health Maintenance Due Date Last Done Comments BONE DENSITY TESTING 1945 HEPATITIS C SCREENING 05/19/1965 DTAP/TDAP/TD VACCINES (1 - Tdap) 05/23/1966 PNEUMOCOCCAL VACCINE 50+ (1 of 1 - PCV) 05/23/1997 ZOSTER VACCINE (1 of 2) 05/23/1997 Respiratory Syncytial Virus (RSV) Vaccine Pt: or over 60 yrs (1 - 1-dose 75+ series) 05/23/2022 COVID-19 VACCINE ( - 2023-2 5 season) 2023 DEPRESSION SCREENING 02/21/2024 INFLUENZA VACCINE (Season Ended) 2024 12/26/2017, 12/25/2017, 11/20/2012 HEPATITIS B VACCINE Aged Out No longe r eligible based on patient's age to complete this topic HIB VACCINE Aged Out No longer eligi ble based on patient's age to complete this topic HPV VACCINE Aged Out No longer eligi ble based on patient's age to complete this topic MENINGOCOCCAL (Group B) VACCINE SHARED DECISION-MAKING Aged Out No longer eligible based on patient's age to complete this topic MENINGOCOCCAL GROUPS A/C/Y/W VACCINE Aged Out No longer eligible b ased on patient's age to complete this [place] [address] MEDICARE AETNA Care Teams Trainman Relationship Specialty Start Date End Date Chandan Richardson DO [address] [place], [place] [id number] PCP - General 10/09/18
[2024-06-06 16:24] LABS: Creatinine Urine 56.3 mg/dL; Total Protein Urine Random 14 mg/dL; Ur Ttl Prot Creatinine Ratio 0.25 mg/mg (0-0.20)
[2024-06-06 19:32] LABS: Alanine Aminotransferase 16 U/L (6-35); Albumin Level 4.5 g/dL (3.5-5.1); Alkaline Phosphatase 66 U/L (38-126); Anion Gap 10 mmol/L (4-12); Aspartate Amino Transferase 30 U/L (14-36); Bilirubin,Total 0.9 mg/dL (0.2-1.3); Blood Urea Nitrogen 9 mg/dL (7-17); Calcium 10.2 mg/dL (8.4-10.2); Carbon Dioxide 25 mmol/L (22-30); Chloride 94 mmol/L (98-107); Cholesterol 259 mg/dL (0-200); Estimated Glomerular Filt Rate > 60; Glucose 100 mg/dL (65-110); HDL Direct 41 mg/dL; Potassium 3.8 mmol/L (3.4-5.0); Sodium 129 mmol/L (137-145); Triglycerides 157 mg/dL (<150)
[2024-06-06 19:33] LABS: Phosphorus 4.2 mg/dL (2.5-4.5)
[2024-06-06 19:43] LABS: LDL Cholesterol Direct 158 mg/dL
[2024-06-06 21:32] LABS: Vitamin D 25 Hydroxy > 126.0 ng/mL
== END 2024-06-06 15:05 | disposition home or self-care (01) ==
PROVIDERS: PCP Internal Medicine; Referring Provider Nurse Practitioner; Visit Provider Internal Medicine Nephrology
DX: E87.1 Hypo-osmolality and hyponatremia (principal); E87.6 Hypokalemia; E55.9 Vitamin D deficiency, unspecified; E78.5 Hyperlipidemia, unspecified
CPT/HCPCS: 36415; 80053; 80061; 82306; 82570; 83735; 84100; 84156

== ENCOUNTER 2024-12-11 13:25 | Outpatient (CLI) | payer MEDICARE, SELFPAY ==
[2024-12-11 14:12] LABS: Hematocrit 38.9 % (37.0-47.0); Hemoglobin 13.1 g/dL (12.0-15.0); Mean Corpuscular HGB Conc 33.7 g/dl (32-36); Mean Corpuscular Hemoglobin 30.3 pg (26-34); Mean Corpuscular Volume 89.8 fl (80-100); Platelet Count Result 315 k/mm3 (150-375); Red Blood Count 4.33 M/mm3 (4.2-5.4); White Blood Count 5.5 K/mm3 (4.5-10.0)
[2024-12-11 14:39] LABS: Alanine Aminotransferase 15 U/L (6-35); Albumin Level 4.5 g/dL (3.5-5.1); Alkaline Phosphatase 68 U/L (38-126); Anion Gap 8 mmol/L (4-12); Aspartate Amino Transferase 29 U/L (14-36); Bilirubin,Total 1.2 mg/dL (0.2-1.3); Blood Urea Nitrogen 15 mg/dL (7-17); Calcium 9.6 mg/dL (8.4-10.2); Carbon Dioxide 26 mmol/L (22-30); Chloride 95 mmol/L (98-107); Cholesterol 272 mg/dL (0-200); Estimated Glomerular Filt Rate > 60; Glucose 99 mg/dL (65-110); HDL Direct 48 mg/dL; Magnesium 1.7 mg/dL (1.6-2.3); Potassium 3.4 mmol/L (3.4-5.0); Sodium 129 mmol/L (137-145); Total Protein 8.0 g/dL (6.3-8.2); Triglycerides 97 mg/dL (<150)
--- OUTSIDE RECORDS SUMMARY | 2024-12-11 17:06 | XMS_ITS | Encounter Summary ---
Author Organization [facility] Address [address] [place] [address] Phone Care Team Providers Care Cut Order Hand Name Role Phone Carl Nicole MD Unavailable [phone] Saurav Olson MD Unavailable [phone] Julienne Collins MD Unavailable [phone] Valerio Molina MD Unavailable Katrin Davis MD Unavailable Mary Noriega PhD Unavailable [phone] Edwin Jones DO Primary Care Provider [phone] Encounter Details Date Type Department Care Team (Late st Contact Info) Description 10/29/2024 Results Follow-Up [facility] Medicine Oncology [address] 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 Gender Identity Not on file Sexual Orientation Not on file documented as of this encounter Plan of Treatment Not on file documented as of this encounter Visit Diagnoses Not on filedocumented in this encounter Care Teams Cut Order Hand Relationship Specialty Start Date End Date Edwin Jones DO [address] [facility], [address] [address] PCP - General Internal Medicine 07/07/23 Carl Nicole MD [address] [place] [address] Referring Physician Obstetrics and Gynecology 12/28/21 Saurav Olson MD [address] [place], [place] [id number] Referring Physician Nephrology 01/18/22 Julienne Collins MD [address] [address] Surgeon Surgical Oncology 02/15/22 Valerio Molina MD [address] [facility], [address] [address] Consulting Physician Medical Oncology 02/15/22 Katrin Davis MD [address] [facility], [address] [address] Radiation Oncologist Radiation Oncology 02/15/22 Mary Noriega, PhD [address] [facility], [address] [address] Nurse Practitioner Radiation Oncology 04/11/22 5 documented as of this encounter
--- OUTSIDE RECORDS SUMMARY | 2024-12-11 17:06 | XMS_ITS | Clinical Summary ---
Author Organization [facility] Address [address] [place] [address] Care Team Providers Care Laborer Steel Handling Name Role Phone Chandan Richardson DO Primary Care Provider Source Comments [facility],non-owned Affiliates and Associated Physician Practices is amultiple site organization consisting of ambulatory clinics and hospital sitesin [place], [place], [place] and [place]. This disclosure is being madepursuant to the Care Everywhere program and may not contain all information available regarding this patient. Last updated 17.[facility] [employer] Allergies Active Allergy Reactions Criticality Noted Date [...] Active azelastine (ASTELIN) 0.1 % nasal spray [place] 2 sprays into each nostril 2 times [...] yrs (1 - 1-dose 75+ series) 05/23/2022 DEPRESSION SCREENING 02/21/2024 COVID-19 VACCINE ( - 2023-2 5 season) 2024 INFLUENZA VACCINE (#1) 2024 8, 12/25/2017, 11/20/2012 HEPATITIS B VACCINE Aged Out [...] patient's age to complete [place] [address] MEDICARE AETNA Care Teams Laborer Steel Handling Relationship Specialty Start Date End Date Chandan Richardson DO [address] [place], [place] [id number] PCP - General 10/09/18
--- OUTSIDE RECORDS SUMMARY | 2024-12-11 17:07 | XMS_ITS | Clinical Summary ---
Author Organization [facility] Address [address] [place] [address] Phone Care Team Providers Care Safety Pin Assembling Machine Operator Name Role Phone Unavailable Primary Care Provider [...] 1-dose 75+ series) 05/23/2022 INFLUENZA VACCINE (#1) [address] [place] [address] MEDICARE PART A AND B AETNA MEDICARE SUPP AESSI
--- OUTSIDE RECORDS SUMMARY | 2024-12-11 17:07 | XMS_ITS | Clinical Summary ---
Author Organization [facility] Address [address] [place] [address] Care Team Providers Care Leather Production Machine Operator Name Role Phone Carl Nicole MD Unavailable [phone] Saurav Olson MD Unavailable [phone] Julienne Collins MD Unavailable [phone] Valerio Molina MD Unavailable Katrin Davis MD Unavailable Edwin Jones DO Primary Care Provider [phone] Allergies Active Allergy Reactions Criticality Noted Date Comments Quinapril Diarrhea Low 12/29/19 22 Adhesive Rash Medium 12/29/19 22 Alcohol-Propylene Glycol Itching Low 23 3M Red Dot Electrodes have this have this. Amlodipine Shortness of breath,Unknown High 07/24/19 13 Atenolol Other (See comments),Unknown Low 07/24/19 13 Hair loss Lorazepam Hallucinations Medium 03/17/19 23 Bacitracin Unknown 01/19/20 22 Benzyl Alcohol Unknown Low 02/12/20 22 Celecoxib Anaphylaxis,Unknow n High 07/24/19 13 Chlorhexidine Rash Medium 03/17/19 23 Chemical burn Clindamycin Hives,Rash Medium 06/26/19 15 Clonidine Shortness of breath,Swelling High 07/24/19 13 Estradiol Unknown,Other (See comments) Low 07/24/19 13 Hydrocodone Other (See comments),Rash,Swe lling High 01/19/20 16 Lip swelling Ibuprofen Unknown,Other (See comments) High 03/06/19 19 Latex Blisters,Rash High 12/23/19 22 Meloxicam Other (See comments),Swelling Medium 03/06/19 18 Swelling, elevated BP Methylchloroisothiazolinone Unknown Low 01/19/20 22 Methylisothiazolinone Unknown 22 Neomycin Rash,Unknown Medium 07/24/19 13 Nsaids (Non-Steroidal Anti-Inflammatory Drug) Other (See comments),Swelling Medium 01/24/20 22 Bullous Penicillins Hives,Rash,Shortne ss of breath High 07/24/19 13 Product containing penicillin (product) Polyethylene Glycol 400 Rash Medium 01/21 05/09 22 Progestins Diarrhea,Other (See comments) High 07/24/19 13 Substance with progesterone receptor agonist mechanism of action (substance) Propylene Glycol Unknown Low 12/23/19 22 Quinapril Hcl Diarrhea High 01/05/20 22 Sulfamethoxazole-Trimethoprim Anaphylaxis High 12/29/19 22 Sulfa (Sulfonamide Antibiotics) Anaphyla xis,Unknow n,Other (See comments) High 07/24/19 13 Substance with sulfonamide structure and antibacterial mechanism of action (substance) sulfamethoxazole Trimethoprim Unknown 12/23/19 22 Vancomycin Other (See comments) High 03/17/19 23 Red christopher syndrome Verapamil Other (See comments),Rash Medium 07/24/19 13 Ringing in ears Medications metoprolol tartrate (LOPRESSOR) [...] 1 capsule (2,000 Units total) by mouth tooling supervisor before breakfast Active ascorbic acid (VITAMIN C) 500 mg tablet,chewable Indications:sup plement Take 1 tablet/chew tab (500 mg total) by mouth tooling supervisor before breakfast Active diphenhydrAMINE (BENADRYL) 25 mg capsule Take 1 tablet/capsule (25 mg total) by mouth nightly as needed for itching Active desoximetasone (TOPICORT) 0.25 % cream APPLY TOPICALLY TO THE AFFECTED AREA TWICE DAILY 4 Active anastrozole (ARIMIDEX) 1 mg tabletIndicatio ns:Hormone [...] (60 mg total) by mouth daily Active busPIRone (BUSPAR) 10 mg tablet Take 1 tablet (10 mg total) by mouth 3 (three) times a day 5 Active lisinopriL (QBRELIS) 1 mg/mL solution 2 (two) times a day 0 Active Active Problems Problem Noted Date Diagnosed Date Radiotherapy follow-up examination 04/12/2023 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, estrogen receptor positive 01/12/2022 Cancer Staging:Clinical stage from 12/30/2021:Stage IA(cT1c, cN0, cM0, G3, ER+, HI+, HER2-) - Signed by Jeimy Biggs MD on 03/17/2022 Pathologic stage from 02/07/2022:Stage IA(pT1c, pN0(sn), cM0, G1, ER+, HI+, HER2-) - Signed by Jeimy Biggs MD on 03/17/2022 Encounters Date Type Department Care Team Description 11/13/2024 Results Follow-Up [facility] Medicine Surgery [facility] [address] [address] Kimberley [place] PA Screening Mammogram Bilateral W Richard 11/12/2024 1:35 PM CDT - 11/12/2024 11:59 PM CDT Hospital Encounter [facility] - Breast Imaging [address] [facility] [address] [place] [address] Screening mammogram for breast cancer Discharge Disposition: Discharge to home or self care 11/12/2024 1:30 PM CDT Office Visit [facility] [address] [place] [address] Floor 8 [place] [id number] Kimberley [place] PA Malignant neoplasm of lower-inner quadrant of left breast in female, estrogen receptor positive (HCC) (Primary Dx); Encounter for screening mammogram for malignant neoplasm of breast; History of breast cancer 10/29/2024 Results Follow-Up [facility] Oncology [address] [place] [address] Floor 6 [place] [id number] Seth Sequeira NP Dexa Axial Skeleton Bone Density 1 or 2 Site 10/24/2024 1:10 PM CDT Clinical Support [facility] Advanced Medicine 13th [place] [address] [place] [address] [facility] current use of aromatase inhibitor (Primary Dx); Malignant neoplasm of lower-inner quadrant of left breast in female, estrogen receptor positive (HCC); Aromatase inhibitor use from Last 3 Months Immunizations Immunization Administration Dates Next Due Influenza, Quadrivalent, Hig h Dose, Preservative Free, Intrr 12/26/2017,12/25/2017 Influenza, Trivalent, High D ose, Split, Preservative Free, Intramuscular 12/26/2017,12/25/2017 Influenza, Trivalent, IM (MDV) 11/20/2012 Surgical History Surgery Date Site/Laterality Comments BREAST BIOPSY 12/30/2021 Left IMPLANT 02/20/2015 - 02/20/2016 BREAST BIOPSY 01/20/2022 Left DILATION AND CURETTAGE OF UTERUS x5 HYSTEROSCOPY EYE SURGERY Bilateral cataract MASTECTOMY PARTIAL / LUMPECTOMY 02/07/2022 Left L IDC Medical History Medical History Date Comments Hypertension Lupus Chronic disorder of skin Breast cancer (HCC) 2021 L IDC History of radiation therapy 03/2022 Family History Medical History Relation Name Comments [...] on file 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 Gender Identity Not on file Sexual Orientation Not on file Obstetrics History Para Term AB IAB SAB Ectopic Multiple Livin g Live Births 0 0 Last Filed Vital Signs Vital Sign Reading Time Taken Comments Blood Pressure 149/73 07/10/2024 1:00 PM CDT Pulse 65 07/10/2024 1:00 PM CDT Temperature 36.7 C (98.1 F) 07/10/2024 1:00 PM CDT Respiratory Rate 16 07/10/2024 1:00 PM CDT Oxygen Saturation 98% 07/10/2024 1:00 PM CDT Inhaled Oxygen Concentration - - Weight 64.2 kg (141 lb 9.6 oz) 11/12/2024 1:07 P M CDT Height 161.8 cm (5' 3.7) 11/12/2024 1:07 PM CDT Body Mass Index 24.53 11/12/2024 1:07 PM CDT Plan of Treatment Health Maintenance Due Date Last Done Comments Depression Screening 1945 Hepatitis C Screening 1945 DTaP/Tdap/Td Vaccine (1 - Tdap) 05/23/1958 Hepatitis B Screening 05/23/1965 Pneumococcal vaccine 65+ (1 of 2 - PCV) 05/23/1966 Zoster Vaccine (1 of 2) 05/23/1966 Well Visit 65+ 05/23/2012 Fall Risk Assessment 03/17/2023 03/17/2022, 02/08/20 22 Influenza Vaccine (#1) 2024 8, 12/26/2017, 12/25/2017, Additional history exists Osteoporosis Screening-Bone Density Scan 10/24/2026 10/24/2024, 10/14/2022 Breast Cancer Screening-Mammogram Discontinued 11/12/2024, 10/17/2023, 10/14/2022, Additional history exists Medical Devices Implanted Type Area Radial Router Operator Device Identifier Shelf Expiration Date Model / Serial / Lot Bard Peripheral Vascular Ultraclip Bard 17ga 10cm 2 Trigger Permanent Ultrasound [id number] - [id number] Implanted:Qty: 1 on 12/30/2021 at [facility] Left: Breast Bard Peripheral [employer]ascular [id number] / / [employer] Magseed 18ga 7cm Marker Breast Biopsy [id number] - [id number] Implanted:Qty: 1 on 01/28/2022 at [facility] [employer] [id number] 10/20/2025 [id number] / [id number] Procedures Procedure Name Priority Date/Time Associated Diagnosis Comments SCREENING MAMMOGRAM BILATERAL W RICHARD Schedule Routine, Read Routine (OP Routine) 11/12/2024 1:54 PM CDT Screening mammogram for breast cancer DEXA AXIAL SKELETON BONE DENSITY 1 OR MORE SITES Schedule Routine, Read Routine (OP Routine) 10/24/2024 1:37 PM CDT Malignant neoplasm of lower-inner quadrant of left breast in female, estrogen receptor positive (HCC) Aromatase inhibitor use from Last 3 Months Results * Screening Mammogram Bilateral W Richard (11/12/2024 1:54 PM CDT) Anatomical Region Laterality Modality Breast Bilateral Mammography Impressions 11/13/2024 10:33 AM CDT Bilateral No evidence of malignancy in either breast. OVERALL BI-RADS FINAL ASSESSMENT: 2 - Benign RECOMMENDATION: Recommend bilateral annual screening mammography. Narrative 11/13/2024 10:33 AM CDT EXAMINATION: Screening Mammogram Bilateral W Richard: 11/12/2024 COMPARISON: Relevant prior studies available at the time of interpretation were reviewed, including the most recent mammogram on: 10/17/2023. TECHNIQUE: Mammography was performed with 2D and 3D digital breast tomosynthesis (DBT) images. CAD was utilized. BREAST PARENCHYMAL COMPOSITION: The breasts are heterogeneously dense, which may obscure small masses. FINDINGS: Bilateral There is no suspicious mass, calcification, or architectural distortion in either breast. us Kimberley LING IMG MAMMO PROCEDURES Final Resu lt * Dexa Axial Skeleton Bone Density 1 or 2 Site (10/24/2024 1:37 PM CDT) Anatomical Region Laterality Modality Body N/A Radiographic Debby ging Narrative 10/25/2024 3:53 PM CDT Patient Name: Mikayla Fitzgerald Date of : 1945 Date of scan: 10/24/2024 Bone mineral density was performed on a [employer] Discovery Densitometer. Based on machine cross-calibration and precision studies the least significant changes of this densitometer is 0.024 g/cm2 at the spine, 0.020 g/cm2 at the total proximal femur, and 0.014g/cm2 at the forearm. HISTORY: This is a 79 y.o. postmenopausal female with a history of breast cancer. She reports that she has never smoked. She has never used smokeless tobacco. Currently on treatment with calcium, vitamin D, aromatase inhibitor, and diuretics and previously treated with glucocorticoids and hormone replacement therapy. INDICATIONS: Menopause status, treatment monitoring, history of glucocorticoids use, and aromatase inhibitor therapy. FINDINGS: BONE MINERAL DENSITY OF THE LUMBAR SPINE Bone Mineral Density (BMD) of the lumbar spine was measured from L1-L4 and the average density was calculated to be 1.467 gm/cm2. This corresponds to a T-score (standard deviations from the mean of young adults) of 3.8. When compared to the previous study of 10/14/2022 there has been no significant changes in bone density. BONE MINERAL DENSITY OF THE PROXIMAL FEMUR Bone Mineral Density (BMD) of the left hip total was found to be 1.101 gm/cm2. This corresponds to a T-score standard deviations from the mean of young adults of 1.3. Femoral neck is 0.897 gm/cm2 with a T-score (standard deviations from the mean of young adults) of 0.4. When compared to the previous study of 10/14/2022 there has been a -0.070 gm/cm (-6.0%) decrease in bone density that is considered significant. SUMMARY: Bone mineral density is near the young adult normal mean with no increased risk for fracture. There has been a significant decrease in bone density since previous measurement. ADDITIONAL COMMENTS: Postmenopausal Women and Men Over [...] bone mineral density scan were prepared by Sharonda Pereira) [employer] who is accredited by the International Society of Clinical Densitometry. The overall patient assessment and scan interpretation were performed by Ewa Mckeon M.D. who is certified by the International Society of Clinical Densitometry. [id number] Valerio Molina MD IMG DXA PROCEDURE S Final Result from Last 3 [place] [address] MEDICARE T SENIOR SUPPLEMENT MEDICARE AETNA SENIOR SUPPLEMENT MEDICARE AETNA SENIOR SUPPLEMENT Care Teams Leather Production Machine Operator Relationship Specialty Start Date End Date Edwin Jones DO [facility], [address] [address] PCP - General Internal Medicine 07/07/23 Carl Nicole MD [address] [place] [address] Referring Physician Obstetrics and Gynecology 12/28/21 Saurav Olson MD [address] [place] [address] Referring Physician Nephrology 01/18/22 [place] [address] [place] [address] Surgeon Surgical Oncology 02/15/22 Valerio Molina MD [address] [facility] [address] Consulting Physician Medical Oncology 02/15/22 Katrin Davis MD [address] [facility] [address] Radiation Oncologist Radiation Oncology 02/15/22
--- OUTSIDE RECORDS SUMMARY | 2024-12-11 17:07 | XMS_ITS ---
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
--- OUTSIDE RECORDS SUMMARY | 2024-12-11 17:07 | XMS_ITS | Encounter Summary ---
Author Organization [facility] Address [address] [facility] [address] [place] [address] Phone Care Team Providers Care Wood Pile Driver Operator Name Role Phone Carl Nicole MD Unavailable [phone] Saurav Olson MD Unavailable [phone] Julienne Collins MD Unavailable [phone] Valerio Molina MD Unavailable Katrin Davis MD Unavailable Mary Noriega PhD Unavailable [phone] Edwin Jones DO Primary Care Provider Encounter Details Date Type Department Care Team (Late st Contact Info) Description 11/13/2024 Results Follow-Up [facility] Medicine Surgery [address] [facility] Floor [address] [place] [address] Kimberley Ogden PA [address] [facility] [phone] [place] [address] Screening Mammogram Bilateral W Richard Social History Tobacco Use Types Packs/Day Years [...] on file 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 Gender Identity Not on file Sexual Orientation Not on file documented as of this encounter Plan of Treatment Not on file documented as of this encounter Visit Diagnoses Not on filedocumented in this encounter Care Teams Wood Pile Driver Operator Relationship Specialty Start Date End Date Edwin Jones DO [address] [facility], [address] [address] PCP - General Internal Medicine 07/07/23 Carl Nicole MD [address] [place] [address] Referring Physician Obstetrics and Gynecology 12/28/21 Saurav Olson MD [address] [place], [place] [id number] Referring Physician Nephrology 01/18/22 Julienne Collins MD [address] [address] Surgeon Surgical Oncology 02/15/22 Valerio Molina MD [address] [facility], [address] [address] Consulting Physician Medical Oncology 02/15/22 Katrin Davis MD [address] [facility], [address] [address] Radiation Oncologist Radiation Oncology 02/15/22 Mary Noriega, PhD [address] [facility], [address] [address] Nurse Practitioner Radiation Oncology 04/11/22 5 documented as of this encounter
== END 2024-12-11 13:26 | disposition home or self-care (01) ==
LOC: ANHLAB 13:26
PROVIDERS: PCP Internal Medicine; Visit Provider Nurse Practitioner
DX: E55.9 Vitamin D deficiency, unspecified (principal); E78.5 Hyperlipidemia, unspecified
CPT/HCPCS: 36415; 80053; 80061; 82306; 83735; 85027

== ENCOUNTER 2025-01-10 14:21 | Outpatient (CLI) | payer MEDICARE, SELFPAY ==
--- OUTSIDE RECORDS SUMMARY | 2025-01-10 14:24 | XMS_ITS | Clinical Summary ---
Author Organization [facility] Address [address] [facility] [place] [address] Care Team Providers Care Wet Pour Supervisor Name Role Phone Chandan Richardson DO Primary Care Provider Source Comments [facility],non-owned Affiliates and Associated Physician Practices is amultiple site organization consisting of ambulatory clinics and hospital sitesin [place], [place]. This disclosure is being madepursuant to the Care Everywhere program and may not contain all information available regarding this patient. Last updated 17.[facility] Allergies Active Allergy Reactions Criticality Noted Date [...] Active azelastine (ASTELIN) 0.1 % nasal spray [place] 2 sprays into each nostril 2 times [...] DEPRESSION SCREENING 02/21/2024 COVID-19 VACCINE ( - 2024-2 6 season) 2024 INFLUENZA VACCINE (#1) 2024 8, [...] patient's age to complete [place] [address] MEDICARE AETNA Care Teams Wet Pour Supervisor Relationship Specialty Start Date End Date hCandan Richardson DO [address] [facility] [address] [place] [address] [place], [place] [id number] PCP - General 10/09/18
--- OUTSIDE RECORDS SUMMARY | 2025-01-10 14:24 | XMS_ITS | Clinical Summary ---
Author Organization [facility] Address [address] [place] [id number] Phone Care Team Providers Care Director Marketing Name Role Phone Chandan Richardson DO Primary Care Provider [phone] Allergies Active Allergy Reactions Criticality Noted Date [...] on file Legal Sex Female 7:20 AM [facility] Gender Identity Not on file Sexual Orientation [...] 2:48 PM CDT Height 162.6 cm (5' 4) 12/22/2021 2:48 PM CDT Body Mass Index 27.81 12/22/2021 2:48 PM CDT Plan of Treatment Health Maintenance Due Date Last Done Comments Pneumococcal PPSV23/PCV13 65 + Years / Low and Medium Risk (1 of 2 - PCV) 05/23/1997 Influenza Vaccine (#1) 2024 11/20/2012 Insurance MEDICARE AET Care Teams Director Marketing Relationship Specialty Start Date End Date Chandan Richardson DO [address] [facility] [address] [place] [address] PCP - General Internal Medicine 04/22/19
--- OUTSIDE RECORDS SUMMARY | 2025-01-10 14:24 | XMS_ITS | Encounter Summary ---
Author Organization [facility] Address [address] [facility] [address] [place] [address] Phone Care Team Providers Care Asbestos Shingle Inspector Name Role Phone Carl Nicole MD Unavailable [phone] Saurav Olson MD Unavailable [phone] Julienne Collins MD Unavailable [phone] Valerio Molina MD Unavailable Katrin Davis MD Unavailable Mary Noriega PhD Unavailable [phone] Edwin Jones DO Primary Care Provider [phone] Encounter Details Date Type Department Care Team (Late st Contact Info) Description 11/13/2024 Results Follow-Up [facility] Medicine Surgery [address] [facility] Floor [address] [place] [address] Kimberley Ogden PA [address] [facility] [phone] [place] [address] Screening Mammogram Bilateral W Richard Social History [...] on file 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 Gender Identity Not on file Sexual Orientation Not on file documented as of this encounter Plan of Treatment Not on file documented as of this encounter Visit Diagnoses Not on filedocumented in this encounter Care Teams Asbestos Shingle Inspector Relationship Specialty Start Date End Date Edwin Jones DO [address] [place] [address] [place] [address] PCP - General Internal Medicine 07/07/23 Carl Nicole MD [address] [place], [place] [id number] Referring Physician Obstetrics and Gynecology 12/28/21 Saurav Olson MD [address] [place] [address] Referring Physician Nephrology 01/18/22 Julienne Collins MD [address] [address] Surgeon Surgical Oncology 02/15/22 Valerio Molina MD [address] [place] [address] [place] [address] Consulting Physician Medical Oncology 02/15/22 Katrin Davis MD [address] [place] [address] [place] [address] Radiation Oncologist Radiation Oncology 02/15/22 Mary Noriega, PhD [address] [place] [address] [place] [address] Nurse Practitioner Radiation Oncology 04/11/22 5 documented as of this encounter
--- OUTSIDE RECORDS SUMMARY | 2025-01-10 14:24 | XMS_ITS | Data Portability ---
Author Organization [facility] [place] Address [address] [place] [address] [place] [address] Care Team Providers Care Senior Administrative Assistant Name Role Phone EUSEBIA RAMOS Primary Care Provider Assessment Encounter Date Assessment Date Assessment LastModified [...] None recorded. Imaging US, pelvis 2020 021 [email or web address] [place], [address], [place], [address], 15:24:57 US, transvagina l 2020 021 [email or web address] [place], [address], [place], [address], 15:24:57 Medication Orders Cipro 500 mg tablet 2022 024 [id number], [address], [place], [place], [id number], 4 14:20:22 Patient TargetsNo targets recorded. Patient InstructionsNo instructions recorded. Reason for Referral None Reported. Results Created Date Observation Date Name Description Value Unit Range Abnormal Flag Note LastModifiedBy Organization Detail LastModifiedTime 12/21/19 22 12/20/2021 IMAGE GUIDE D PAP AND HPV REGAR DLESS image guided Pap, HPV regardless of Pap result SEE RESULT S BELOW CASE REPOR T: Cytol ogy Gynec ologi kulwinder Repor t Case: [id number] Autho [...] Negat dora for Intra epith elial Frederic n or Rozina wren (NIL) . Funga l [...] Thinp rep Imagi ng Syste m. CLINI KULWINDER INFOR MATIO N: Menst rual Statu s: LMP (if appli cable ): Clini kulwinder Histo ry/Pr eviou s Pap: Type of Neopl silas (if appli cable ): Signi fican t Clini kulwinder Findi ngs: Other Histo ry: Hormo kavon [...] ng do not corre late with physi kulwinder and/o r histo rical findi ngs, furth er inves tigat ion is recom sonal d, as clini angie bull nted. Not Available [facility] (Lab) [address], [place], [address], 12/23/2021 19:39:20 02/01/20 23 01/31/2023 CULTU RE: URINE result report SEE RESULT S BELOW abnormal Test: Cultu re: Urine Speci men Sourc e: Urine Voide d Speci men Type: Urine Speci men Date: 01/31 8:00 AM Resul t Date: 02/03 6:51 AM Resul t Statu s: Final resul t Abnor mal: Yes Resul ting Lab: [facility] [address] [facility] [address] Tel: CULTU RE ----- ----- ----- --- 50,00 [...] <=0.5 ug/mL Susce ptibl e Not Available [facility] (Lab) [address], [place], [address], 02/03/2023 07:56:02 01/29/20 24 01/29/2024 IMAGE GUIDE D PAP AND HPV REGAR DLESS image guided Pap, HPV regardless of Pap result SEE RESULT S BELOW CASE REPOR T: Cytol ogy Gynec ologi kulwinder Repor t Case: [id number] Autho imanandres pricila Provi thania: Jazmin Nicole MD Colle cted: 01/28 1449 Order ing Locat ion: [place] [facility] Recei patricia: 01/29 0245 First Scree n: Rama Ryder ret, CT Speci men: Scree luis manuel Pap - Image d, Cervi x STATE MENT OF ADEQU ACY: Satis facto ry for evalu ation Trans forma tion zone compo nent canno t be defin itive ly ident ified due to the prese nce of atrop hy or other hormo nal lund es ----- ----- ----- ----- ----- ----- ----- ----- ----- ----- ----- ----- ----- ----- ----- ----- ----- ---- FINAL DIAGN OSIS: Negat dora for Intra epith elial Lesio n or Rozina wren (NIL) . Atrop hic cell valerie amanda. Elect dennis serrano d by YANCI Branham ret on 02/05 at 1645 CUSTOMER CARE MANAGER ----- ----- ----- ----- ----- ----- ----- [...] ut diffe renti ation . COMME NT: This speci men was revie wed by a Cytot echno logis t and/o r Patho logis t (as indic ated in this repor t) after evalu ation using the Thinp rep Imagi ng Syste m. CLINI KULWINDER INFOR MATIO N: Menst rual Statu s: LMP (if appli cable ): Clini kulwinder Histo ry/Pr eviou s Pap: Type of Neopl silas (if appli cable ): Signi fican t Clini kulwinder Findi ngs: Other Histo ry: Hormo kavon [...] ng do not corre late with physi kulwinder and/o r histo rical findi ngs, furth er inves tigat ion is recom sonal d, as clini angie bull nted. Not Available [facility] (Lab) [address], [place], [address], 02/06/2024 17:51:12 12/09/19 21 12/08/2020 US, lilia s No observ ation record ed. [email or web address] [place] [address], [place], [address], 12/08/2020 14:36:25 12/09/19 21 12/08/2020 US, blanca hebert No observ ation record ed. [email or web address] [place] [address], [place], [address], 12/08/2020 14:36:12 12/09/19 21 12/08/2020 US, pelvi s No observ ation record ed. [email or web address] [address] [address], [place], [address], 12/08/2020 17:31:34 01/19/20 22 01/18/2022 US, kris otto No observ ation record ed. [email or web address] [facility] [place], [address], 01/19/2022 11:20:57 Result Notes None recorded. Problems Name Problem SNOMED Code Status Onset Date Resolution Date Notes Provider Name and Address Organization Details Recorded Time Pre-surg tiffanie evaluati on Completed 201111/09/2020 Pre-oper ative examinat ion, unspecif ied;Brian aiden ID: 0001 Perla [facility] 14:19:41 Speciali zed medical examinat ion Completed 201311/09/2020 Gynecolo gical Examinat ion;Arnulfo rded Elsewher e: No Locat ion: [facility] S ource: EHR Manager Dish carloz: N Practi ce ID: 0001 Chinmay lable Time: 01:30:00 PM Perlashruthi Blandon [facility] 14:19:31 Adult health examinat ion Completed 201411/09/2020 ROUTINE MEDICAL EXAM;Rec orded Elsewher e: No Locat ion: [facility] S ource: EHR Manager Dish carloz: N Practi ce ID: 0001 Chinmay lable Time: 01:30:00 PM Perlashruthi Blandon [facility] 1 14:19:07 Body mass index 25-29 - overweig ht [id number] Completed 201511/09/2020 Body mass index (BMI) 28.0-28. 9, adult;Re corded Elsewher e: No Locat ion: [facility] S ource: EHR Manager Dish carloz: N Practi ce ID: 0001 Chinmay lable Time: 11:30:00 AM Perla perze [facility] 1 14:19:10 Screenin g for malignan t neoplasm of rectum Completed 201511/09/2020 Encounte r for screenin g for malignan t neoplasm of rectum;P ractice ID: 0001 Perla perez [facility] 14:19:36 Dysuria 03600782 Completed 201511/09/2020 Dysuria; Practice ID: 0001 Perla [facility] 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 14:19:[address] Concept Completed 201711/09/[address] deputy court clerk exam (general ) (routine ) w/o abn findings ;Practic e ID: 0001 Perla perez [facility] 14:19:29 Menopaus e Completed 201811/09/2020 Asymptom atic menopaus al state;Re corded Elsewher e: No Locat ion: [facility] S ource: EHR Manager Dish carloz: N Practi ce ID: 0001 Chinmay lable Time: 12:12:03 PM Perla perez [facility] 14:19:19 Postmeno pausal bleeding 85935420 Active 2018 Postmeno pausal bleeding ;Practic e ID: 0001 Not Available [facility] 0 16:16:[address] Concept Completed 201811/09/2020 Encntr for general adult medical exam w/o abnormal findings ;Practic e ID: 0001 Perla [facility] 14:19:27 Screenin g for malignan t neoplasm of cervix Completed 201811/09/2020 Encounte r for screenin g for malignan t neoplasm of cervix;R ecorded Elsewher e: No Locat ion: [facility] S ource: EHR Manager Dish carloz: N Umesh ce ID: 0001 Chinmay lable Time: 01:30:00 PM Perlashruthi [facility] 14:19:38 Evaluati on finding Completed 201811/09/2020 Hematuri a, unspecif ied;Arnulfo rded Elsewher e: No Locat ion: [facility] S ource: EHR Manager Dish carloz: N Umesh ce ID: 0001 Chinmay lable Time: 01:30:00 PM Perla perez [facility] 14:19:14 Problem Notes None recorded. Procedures Surgical History Date Name Laterality Status Provider Name and Address Organization Details Recorded Time 4 Date of Last Mammogram completed [facility] 01/29/2024 14:22:34 4 Date of Last Colonoscopy completed [facility] 01/29/2024 14:23:31 2 lumpectomy of left breast completed [facility] 01/29/2024 14:16:56 2 Date of Last Pap Smear completed [facility] 01/29/2024 14:20:11 8 bilateral extraction of cataracts completed [facility] 12/20/2021 15:46:34 2 Dilation and Curettage completed [facility] 12/20/2021 15:45:59 0 Dilation and Curettage completed [facility] 12/20/2021 15:45:51 5 Dilation and Curettage completed [facility] 12/20/2021 15:45:47 1 Dilation and Curettage completed [facility] 12/20/2021 15:45:44 removal of dental implant completed [facility] 12/20/2021 15:45:22 dental implant maintenance procedure completed [facility] 12/20/2021 15:45:33 Imaging Results None recorded. Procedure Notes None recorded. Medical Equipment None Reported. Allergies Allergen ID Allergen Name Allergen Category Reaction Reaction Severity Criticality Documentation Date Start Date Code Code System Note Provider Name and Address Organization Details Recorded Time 55161 propylene glycol medicatio n Not available Not available Not available 11/09/2020 07443 RxNorm [facility] 14:34:42 77097 5-chloro- 2-methyl- 4-isothia zolin-3-o ne Not available Not available Not available Not available 11/09/2020 17740 19 RxNorm [facility] 14:34:59 99627 bacitraci n medicatio n Not available Not available Not available 11/09/2020 1291 RxNorm [facility] 14:35:23 1793 adhesive environme nt,medica tion Not available Not available Not available 10/14/2019 Perla [facility] 0 12:56:40 1794 amlodipin e medicatio n Not available Not available Not available 10/14/2019 07245 RxNorm Perla Jamia null, [facility] 0 12:56:48 1795 atenolol medicatio n Not available Not available Not available 10/14/2019 1202 RxNorm Perla Jamia null, [facility] 0 12:56:59 1796 celecoxib medicatio n Not available Not available Not available 10/14/2019 61779 7 RxNorm Perla Jamia null, [facility] 0 12:57:08 1797 clindamyc in Not available Not available Not available Not available 10/14/2019 2582 RxNorm Perla Jamia null, [facility] 0 12:57:18 1798 clonidine medicatio n Not available Not available Not available 10/14/2019 2599 RxNorm Perla Jamia null, [facility] 0 12:57:26 1799 estradiol medicatio n Not available Not available Not available 10/14/2019 4083 RxNorm Perla Jamia null, [facility] 0 12:57:34 1800 hydrocodo ne Not available Not available Not available Not available 10/14/2019 5489 RxNorm Perla Jamia null, [facility] 0 12:57:45 1801 ibuprofen medicatio n Not available Not available Not available 10/14/2019 5640 RxNorm Perla Jamia null, [facility] 0 12:58:02 1802 latex environme nt,medica tion Not available Not available Not available 10/14/2019 54180 91 RxNorm Perla Jamia null, [facility] 0 12:58:08 1803 meloxicam medicatio n Not available Not available Not available 10/14/2019 27076 RxNorm Perla Jamia null, [facility] 0 12:58:14 85083 vancomyci n medicatio n Not available Not available Not available 01/29/2024 55912 RxNorm Angelica Enriquez ana, [facility] 4 14:21:10 9857 verapamil medicatio n Not available Not available Not available 02/07/2020 51923 RxNorm Comme nt: [facility]; Not Available [facility] 0 14:14:44 9867 sulfameth oxazole medicatio n Not available Not available Not available 02/07/2020 06294 RxNorm Comme nt: Locat [facility]: [facility] Cau sativ e Agent : Septr a; Not Available [facility] 0 14:14:44 9872 trimethop rim medicatio n Not available Not available Not available 02/07/2020 97803 RxNorm Comme nt: Locat [facility]: [facility] Cau sativ e Agent : Septr a; Not Available [facility] 0 14:14:44 9894 Product containin g penicilli n (product) medicatio n hives Not available Not available 02/07/2020 47341 8001 SNOMED React ion: hives ; Comme nt: Locat ion: [facility]; Not Available [facility] 0 14:14:45 9897 Substance with sulfonami de structure and antibacte rial mechanism of action (substanc e) medicatio n Not available Not available Not available 02/07/2020 25121 8003 SNOMED Comme nt: Locat ion: [facility]; Not Available [facility] 0 14:14:45 9902 Substance with progester one receptor agonist mechanism of action (substanc e) medicatio n Not available Not available Not available 02/07/2020 90037 3001 SNOMED Comme nt: Locat ion: [facility]; Not Available [facility] 0 14:14:45 Medications Name Sig Start Date [...] Prescrib ed Elsewher e: No [facility] By: nolan navas DateTime : 04/24/19 13 01:30:00 PM Not Available Not Available Not Available Zestril 10 mg tablet take 1 tablet (10MG) by oral route every day 07/05 completed Prescrib ed Elsewher e: No [facility] By: nolan hartmanuntmervin DateTime : 04/12/19 12 11:30:00 AM Not Available Not Available Not Available anastrozo le 1 mg tablet active Not Available Not Available Not Available Plaquenil 200 mg tablet take 1 tablet (200MG) by oral route every day 05/27 completed Prescrib ed Elsewher e: Yes Loca tion: [facility] odify By: maryellen navas DateTime : 12/20/19 12 12:00:00 PM [...] Elsewher e: Yes Loca tion: [facility] odify By: amchaitanya Cage ncounter DateTime : 04/12/19 12 11:30:00 AM Not Available Not Available Not Available Elidel 1 % topical cream apply by topical route 2 times every day a thin layer to the affected area(s) ; rub in gently and complete ly 09/25 completed Prescrib ed Elsewher e: Yes Loca tion: [facility] odify By: eliceo nguyen DateTime : 04/12/19 12 11:30:00 AM [...] Elsewher e: Yes Loca tion: [facility] odify By: jin nguyen DateTime : 04/12/19 12 11:30:00 AM Not Available Not Available Not Available Karly 60 mg tablet take 1 tablet (60MG) by oral route 2 times every day 05/06 completed Prescrib ed Elsewher e: Yes Loca tion: [facility] odify By: amchaitanya Cage ncounter DateTime : 12/20/19 12 12:00:00 PM Not [...] Elsewher e: Yes Loca tion: [facility] odify By: smcaley Maya r DateTime : 05/28/19 14 01:30:00 PM Not Available Not Available Not Available Zantac 150 mg tablet take 1 tablet by oral route 2 times every day 09/15 completed Prescrib ed Elsewher e: Yes Loca tion: [facility] odify By: nolan Cage ncounter DateTime : 04/12/19 12 11:30:00 AM Not Available Not Available Not Available Macrobid 100 mg capsule take 1 capsule by oral route every 12 hours with food 03/19 completed Prescrib ed Elsewher e: No Locat ion: [facility]ify By: deepa nguyen DateTime : 03/10/19 17 11:35:18 AM Not Available Not Available Not Available oxycodone -acetamin ophen 5 mg-325 mg tablet TAKE 1 TABLET BY MOUTH EVERY 4 TO 6 HOURS NEEDED FOR PAIN 12/20 completed Not Available Not Available Not Available potassium 99 mg tablet 05/27 completed Prescrib ed Elsewher e: Yes Loca tion: [facility] odify By: maryellen Cage ncounter DateTime : 04/12/19 12 11:30:00 AM Not Available Not Available Not Available progester one 50 mg/mL intramusc ular oil inject 0.1 millilit er by intramus cular route every day 11/02 completed Prescrib ed Elsewher e: Yes Loca tion: [facility]ify By: deepa nguyen DateTime : 07/06/19 16 11:30:00 AM Not Available Not Available Not Available venlafaxi ne 37.5 mg tablet 01/28 completed Not Available Not Available Not Available Dyrenium 50 mg capsule take 1 capsule by oral route every day after a meal 12/20 completed Prescrib ed Elsewher e: Yes Loca tion: [facility] odify By: jin Giron ter DateTime : 04/12/19 12 11:30:00 [...] Elsewher e: Yes Loca tion: [facility] odify By: smccassandra Trejo r DateTime : 08/18/19 19 03:00:00 PM Not Available Not Available Not Available ibuprofen 400 mg tablet take 1 tablet by oral route 4 - 6 hours as needed 09/18 completed Prescrib ed Elsewher e: Yes Loca tion: [facility] odify By: [email or web address] z Encoun ter DateTime : 04/12/19 12 11:30:00 AM [...] Elsewher e: Yes Loca tion: [facility] odify By: nolan navas DateTime : 04/12/19 12 11:30:00 AM Not Available Not Available Not Available Viactiv 500 mg-100 unit-40 mcg chewable tablet 05/06 completed Prescrib ed Elsewher e: Yes Loca tion: [facility]ify By: amchaitanya hartmanuntmervin DateTime : 11/13/19 14 12:00:00 PM Not [...] No t Available Nasonex 50 mcg/actua tion Sebago spray 2 spray by intranas al route every day in each nostril 05/27 completed Prescrib ed Elsewher e: Yes Loca tion: [facility]ify By: maryellen navas DateTime : [...] Elsewher e: Yes Loca tion: [facility]ify By: nolan navas DateTime : 11/13/19 14 12:00:00 PM Not Available Not Available Not Available doxycycli ne hyclate 100 mg tablet take 1 tablet by oral route every day 05/27 completed Prescrib ed Elsewher e: Yes Loca tion: [facility]ify By: maryellen navas DateTime : 04/12/19 12 11:30:00 AM Not Available Not Available Not Available estradiol 0.1 mg/24 hr weekly transderm al patch APPLY 1 PATCH EXTERNAL LY TO THE SKIN EVERY WEEK 11/09 completed patient uses twice weekly patches Not Available Not Available Not Available diazepam 5 mg tablet 01/28 completed Not Available Not Available Not Available progester one micronize d 100 mg capsule take one capsule by mouth every day in evening 01/28 completed Not Available Not Available Not Available metoprolo l tartrate 25 mg tablet take 1 tablet by oral route 2 times every day 12/20 completed Prescrib ed Elsewher e: Yes Loca tion: [facility] odify By: jjkline Encounte r DateTime : 04/24/19 13 01:30:00 PM Not Available Not Available Not Available Vitamin D3 active Not Available Not Available Not Available Astepro 205.5 mcg (0.15 %) nasal spray spray 1 spray by intranas al route 2 times every day in each nostril 07/05 completed Prescrib ed Elsewher e: Yes Loca tion: [facility] odify By: nolan navas DateTime : 11/13/19 14 12:00:00 PM Not Available Not Available Not Available Calcium 600 + D(3) 600 mg-5 mcg (200 unit) capsule 05/06 completed Prescrib ed Elsewher e: Yes Loca tion: [facility] odify By: nolan navas DateTime : 11/13/19 14 12:00:00 PM Not Available Not Available Not Available Karly Allergy active Not Available Not Available Not Available Vitals Date Recorded Body height Body mass index (BMI) Body weight Systolic And Diastolic Provider Name and Address Organization Details Last Updated DateTime 12/17/2020 160.02 cm 29.1 kg/m2 20488.15 g 134/73 mm[Hg] [facility] 12/17/2020 14:15:36 Date Recorded Body height Body mass index (BMI) Body weight Systolic And Diastolic Provider Name and Address Organization Details Last Updated DateTime 12/20/2021 160.02 cm 28.3 kg/m2 31968.78 g 117/72 mm[Hg] [facility] 12/20/2021 14:33:51 Date Recorded Body height Body mass index (BMI) Body weight Systolic And Diastolic Provider Name and Address Organization Details Last Updated DateTime 01/29/2024 160.02 cm 27.1 kg/m2 88386.63 g 144/71 mm[Hg] Angelica Enriquez [facility] 01/29/2024 14:16:32 Date Recorded Body height Body mass index (BMI) Body weight Systolic And Diastolic Provider Name and Address Organization Details Last Updated DateTime 01/30/2023 160.02 cm 27.8 kg/m2 78080 g 156/72 mm[Hg] Perla Blandon [facility] 01/30/2023 17:02:51 Social History None recorded. Functional Status None [...] Not available 15:44:51 Medical History Condition Response Other Y Breast Cancer Y Autoimmune disease Y Eczema Y Hypertension Y Gynecological History Statement/Question Response Abnormal Pap [...] Diagnosis SNOMED-CT Code Diagnosis ICD10 Code Diagnosis IMO Codes Diagnosis Note [id number] Carl Nicole MD [place] [address] [address] 10/14/2019 12:35:19 10/14/2019 13:18:45 Gynecologic examination 06665129 Z01.419 This patient is here for her [...] confirm there is no concern. Menopausal symptom 35283 002 N95.1 Postmenopa usal bleeding 88607200 N95.0 [id number] Carl Nicole MD [place] [address] [address] 11/19/2019 16:25:10 11/19/2019 17:43:19 Postmenopausal bleeding 76468235 N95.0 [id number] Carl Nicole MD [place] [address],[place] [address] 11/19/2019 16:25:40 11/19/2019 18:49:07 Menopausal symptom 47577105 N95.1 Postmenopa usal bleeding 09704081 N95.0 this patient is a 74-year-ol d [...] biopsy. We will continue to observe bleeding. [id number] Carl Nicole MD [place] [address],[place] [address] 11/09/2020 14:15:55 11/09/2020 15:02:15 Menopausal symptom 08435297 N95.1 this patient is a 75-year-ol d [...] after pelvic ultrasound . Endometrium thickened 44 6902129 R93.89 [id number] Carl Nicole MD [place] [address],[place] [address] 12/08/2020 13:58:34 12/08/2020 15:08:53 Endometrium thickened 916874711 R93.89 [id number] Carl Nicole MD [place] [address],[place] [address] 12/17/2020 14:06:55 12/17/2020 16:01:53 Lesion of endometrium 2051513370 9101 N85.9 this patient is a 75-year-ol d female presents for follow-up on endometria l lesion. The endometria l lesion is stable. Is very small fluid collection adjacent to the endometriu m. Her other cystic structures of the cervix are not stable. Her endometria l lining is for less than 4 mm. We agreed to observe. Will follow-up as needed. [id number] Carl Nicole MD [place] [address],[place] [address] 12/20/2021 13:59:57 12/20/2021 21:31:41 Gynecologic examination 84674487 Z01.419 This patient is here for her [...] are work on it if it persists. [id number] Carl Nicole MD [place] [address],[place] [address] 01/29/2024 13:55:08 01/29/2024 15:00:27 Gynecologic examination 64482445 Z01.419 This patient is here for her [...] l - [done ] Pap - today [id number] Carl Nicole MD [place] [address] [address] 01/30/2023 16:41:37 01/31/2023 09:24:17 Urinary tract infectious disease 76828017 N39.0 7-year-old female with dysuria and urgency. [...] Recorded Advance Directives Directive None Recorded Payers Insurance Date Sequence Insurance Name Policy Number Policy Falk Covered Member ID Falk Member ID Guarantor Name 12/20/2021 2 [employer] - [employer] F (MEDICARE SUPPLEMENT) Mikayla George Amilcar [id number] 01/26/2024 1 [place] Mikayla George Amilcar [id number] 05/10/2023 3 [employer] (MEDICARE SUPPLEMENT) Mikaylavenecia Fitzgerald [id number] 05/11/2023 2 [employer] Mikayla C Amilcar [id number] 02/01/2024 2 [employer] alaTest (MEDICARE SUPPLEMENT) Mikayla Doris Fitzgerald [id number] Notes Date Note Type Note Provider Name and Address Organization Details Recorded Time 12/18/19 21 text/htm l this patient is a 75-year-old female presents for follow-up on endometrial lesion. The endometrial lesion is stable. Is very small fluid collection adjacent to the endometrium. Her other cystic structures of the cervix are not stable. Her endometrial lining is for less than 4 mm. We agreed to observe. Will follow-up as needed. Carl Nicole MD [address], [place], [address], [facility] 12/17/2020 14:48:32 12/21/19 22 text/htm l Annual GYNReported by PatientHistoryFor history, patient reportsno gynecologic complaints.Genitourinary symptomsFor urinary symptoms, patient reportsno hematuriaandno incontinence. For vulva, patient reportsno genital lesion. For vagina, patient reportsnormal vaginal discharge.Breast symptomsFor breast, patient reportsno breast painandno breast lump.Endocrine symptomsFor menopausal symptoms, patient reportsno menopausal symptoms(txed).Psychologica l symptomsFor psychological symptoms, patient reportsno depressionandno anxiety.Preventative measuresFor preventive measures, patient reportsencourage self breast examinationandencourage regular exercise. Carl Nicole MD [address], [place], [address], [facility] 12/20/2021 20:10:48 01/31/20 23 text/htm l 7-year-old female with dysuria and urgency. She is some suprapubic tenderness. We agreed to treat for urinary tract infection. Her urine was tainted with azo. To send urine for culture and urinalysis. Medications prescribed. Patient was given precautions . to follow up as needed. Carl Nicole MD [address], [place], [address], [facility] 01/30/2023 17:36:05 01/29/20 24 text/htm l Annual GYNReported by PatientHistoryFor history, patient reportsno gynecologic complaints.Genitourinary symptomsFor urinary symptoms, patient reportsno hematuria. For vulva, patient reportsno genital lesion. For vagina, patient reportsnormal vaginal discharge.Breast symptomsFor breast, patient reportsno breast painandno breast lump.Endocrine symptomsFor menopausal symptoms, patient reportshot flashes. For sexual complaints, patient reportsno sexual complaintsandno pain during intercourse.Psychological symptomsFor psychological symptoms, patient reportsno depressionandno anxiety.Preventative measuresFor preventive measures, patient reportsencourage self breast examinationandencourage regular exercise. Carl Nicole MD [address], [place], [address], [facility] 01/29/2024 15:00:16 OBGyn Episode No OBEpisode recorded.
--- OUTSIDE RECORDS SUMMARY | 2025-01-10 14:24 | XMS_ITS ---
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 Past Treatment and Therapy Plans No past plan information found. Radiation Treatments * Course C1 LT [id number]_202203/31/2022 - 04/06/2022 Treatment Period Energy Fraction Dose Fractions Total Dose Plans Planned LT BREAST 03/31/2022 - 04/06/2022 600 5 / 3,000 Reference Points Delivered [id number] 03/31/2022 - 04/06/2022,000
--- OUTSIDE RECORDS SUMMARY | 2025-01-10 14:24 | XMS_ITS | Clinical Summary ---
Author Organization [facility] Address [address] [place] [address] Care Team Providers Care Agricultural Researcher Name Role Phone Carl Nicole MD Unavailable [phone] Saurav Olson MD Unavailable [phone] Julienne Collins MD Unavailable [phone] Valerio Molina MD Unavailable Katrin Davis MD Unavailable Edwin Jones DO Primary Care Provider [phone] Allergies Active Allergy Reactions Criticality Noted Date [...] Glycol 400 Rash Medium 01/21 05/09 22 Procaine Other (See comments) High 02/12/20 22 Progestins Diarrhea,Other (See comments) High 07/24/19 [...] metoprolol tartrate (LOPRESSOR) 50 mg immediate release tabletIndicati ons:hypertensi on Take 0.5 tablets (25 mg total) by mouth 2 (two) times a day 2 Active potassium chloride ER 10 mEq CR tabletIndicati ons:hypokalemi a,hypokalemia prevention Take 4 tablet/capsule (40 mEq total) by mouth 2 (two) times a day 2 Active triamterene-hy droCHLOROthiaz jeff 37.5-25 mg per tabletIndicati ons:htn Take 0.5 tablet/capsule by mouth 2 (two) times a day 2 Active calcium carbonate/alex min D3 (CALCIUM 500 + D, D3, ORAL) Take 1 capsule by mouth daily after dinner 6 Active cholecalcifero l (VITAMIN D-3) 2000 unit capsuleIndicat ions:Vitamin D Deficiency Take 1 capsule (2,000 Units total) by mouth voice over announcer before breakfast Active ascorbic acid (VITAMIN C) 500 mg tablet,chewabl eIndications:s upplement Take 1 tablet/chew tab (500 mg total) by mouth voice over announcer before breakfast Active diphenhydrAMIN E (BENADRYL) 25 mg capsule Take 1 tablet/capsule (25 mg total) by mouth nightly as needed for itching Active desoximetasone (TOPICORT) 0.25 % cream APPLY TOPICALLY TO THE AFFECTED AREA TWICE DAILY 4 Active anastrozole (ARIMIDEX) 1 mg tabletIndicati ons:Hormone Receptor Positive Breast Cancer Take 1 tablet [...] (three) times a day 5 Active lisinopriL (PRINIVIL,ZEST RIL) 20 mg tablet Take 1 tablet (20 mg total) by mouth 2 (two) times a day 5 Active lisinopriL (QBRELIS) 1 mg/mL solution 2 (two) times a day 0 01/09/20 25 Discontinu ed(Patient Reported) Active Problems Problem Noted Date Diagnosed Date Radiotherapy follow-up examination 04/12/2023 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, estrogen receptor positive 01/12/2022 Cancer Staging:Clinical stage from 12/30/2021:Stage IA(cT1c, cN0, cM0, G3, ER+, IN+, HER2-) - Signed by Jeimy Biggs MD on 03/17/2022 Pathologic stage from 02/07/2022:Stage IA(pT1c, pN0(sn), cM0, G1, ER+, IN+, HER2-) - Signed by Jeimy Biggs MD on 03/17/2022 Encounters Date Type Department Care Team Description 01/08/2025 1:00 PM [employer] Office Visit [facility] Medicine Oncology [address] [place] [address] 8 [place] [address] Valerio Molina MD Malignant neoplasm of lower-inner quadrant of left breast in female, estrogen receptor positive (HCC) (Primary Dx) 11/13/2024 Results Follow-Up [facility] Medicine Surgery [address] [place] [address] 8 [place] [address] Kimberley Ogden PA Screening Mammogram Bilateral W Richard 11/12/2024 1:35 PM CDT - 11/12/2024 11:59 PM CDT Hospital Encounter [facility] - Breast Imaging [address] [place] [address] 8 [place] [address] Screening mammogram for breast cancer Discharge Disposition: Discharge to home or self care 11/12/2024 1:30 PM CDT Office Visit [facility] Medicine Surgery [address] [place] [address] 8 [place] [address] Kimberley Ogden PA Malignant neoplasm of lower-inner quadrant of left breast in female, estrogen receptor positive (HCC) (Primary Dx); Encounter for screening mammogram for malignant neoplasm of breast; History of breast cancer 10/29/2024 Results [facility]-Up [facility] [address] [place] [address] 6 [place] [address] Seth Sequeira NP Dexa Axial Skeleton Bone Density 1 or 2 Site 10/24/2024 1:10 PM CDT Clinical Support [facility] [address] [facility] Medicine 13th [place] [address] [place] [address] USP current use of aromatase inhibitor (Primary Dx); [...] Packs/Day Years Used Date Smoking Tobacco: Never Passive Smoke Exposure: Never Smokeless Tobacco: Never Tobacco Cessation:Counseling Given: [...] on file Legal Sex Female 5:55 AM [employer] Gender Identity Not on file Sexual Orientation Not on file Obstetrics History Para Term AB IAB SAB Ectopic Multiple Livin g Live Births 0 0 Last Filed Vital Signs Vital Sign Reading Time Taken Comments Blood Pressure 121/61 01/08/2025 12:28 PM [employer] Pulse 74 01/08/2025 12:28 PM [employer] Temperature 36.8 C (98.2 F) 01/08/2025 12:28 PM [employer] Respiratory Rate 18 01/08/2025 12:28 PM [employer] Oxygen Saturation 99% 01/08/2025 12:28 PM [employer] Inhaled Oxygen Concentration - - Weight 63.8 kg (140 lb 9.6 oz) 01/08/2025 12:28 PM [employer] Height 161.8 cm (5' 3.7) 11/12/2024 1:07 PM CDT Body Mass Index 24.36 11/12/2024 1:07 PM CDT Plan of Treatment [...] history exists Medical Devices Implanted Type Area Relationship Mgr Device Identifier Shelf Expiration Date Model / Serial / Lot Bard Peripheral Vascular Ultraclip Bard 17ga 10cm 2 Trigger Permanent Ultrasound [id number] - [id number] Implanted:Qty: 1 on 12/30/2021 at [facility] Left: Breast Bard Peripheral Vascular [id number] / / [email or web address] Magseed 18ga 7cm Marker Breast Biopsy [id number] - [id number] Implanted:Qty: 1 on 01/28/2022 at [facility] [email or web address] [id number] 10/20/2025 [id number] / / [id number] Procedures Procedure Name Priority Date/Time Associated Diagnosis [...] 10/25/2024 3:53 PM CDT Patient Name: Mikayla Monge Date of : 1945 Date of scan: 10/24/2024 Bone mineral density was performed on a [employer] Discovery Densitometer. Based on machine cross-calibration and [...] mineral density scan were prepared by Sharonda Weiss(Ligia) UGO who is accredited by the International Society of Clinical Densitometry. The overall patient assessment and scan interpretation were performed by Ewa Mckeon M.D. who is certified by the International Society of Clinical Densitometry. [id number] Valerio Molina MD IM DXA PROCEDURE S Final Result from Last 3 [place] [address] MEDICARE T SENIOR SUPPLEMENT [facility]ICARE [facility] SENIOR SUPPLEMENT MEDICARE AETNA SENIOR SUPPLEMENT [place] [id number] Care Teams Agricultural Researcher Relationship Specialty Start Date End Date Edwin Jones DO [address] [address] [address] [place] [address] [place] [address] PCP - General Internal Medicine 07/07/23 Carl Nicole MD [address] [place] [address] Referring Physician Obstetrics and Gynecology 12/28/21 Saurav Olson MD [address] [place] [address] Referring Physician Nephrology 01/18/22 Julienne Collins MD [address] [place] [address] [place] [address] Surgeon Surgical Oncology 02/15/22 Valerio Molina MD [address] [place] [address] [place] [address] Consulting Physician Medical Oncology 02/15/22 Katrin Davis MD [address] [place] [address] [place] [address] Radiation Oncologist Radiation Oncology 02/15/22
--- OUTSIDE RECORDS SUMMARY | 2025-01-10 14:24 | XMS_ITS | Clinical Summary ---
Author Organization [facility] Address [address] [place] [phone] Phone Care Team Providers Care Medical Tech Name Role Phone Unavailable Primary Care Provider [...] INFLUENZA VACCINE (#1) [address] [place] [address] MEDICARE PART A AND B [employer]ET[employer] MEDICARE SUPP AESSI
[2025-01-10 15:08] LABS: Anion Gap 8 mmol/L (4-12); Blood Urea Nitrogen 12 mg/dL (7-17); Calcium 9.2 mg/dL (8.4-10.2); Carbon Dioxide 26 mmol/L (22-30); Chloride 92 mmol/L (98-107); Estimated Glomerular Filt Rate > 60; Glucose 104 mg/dL (65-110); Potassium 3.4 mmol/L (3.4-5.0); Sodium 126 mmol/L (137-145)
== END 2025-01-10 14:22 | disposition home or self-care (01) ==
LOC: ANHLAB 14:22
PROVIDERS: PCP Nurse Practitioner; Visit Provider Internal Medicine Nephrology
DX: E87.1 Hypo-osmolality and hyponatremia (principal)
CPT/HCPCS: 36415; 80048